=== PATIENT | male | born 1965 | race Caucasian/White ===

== ENCOUNTER 2017-04-02 11:01 | Outpatient (CLI) | payer MEDICAID | END 2017-04-02 11:02 | disposition home or self-care (01) | DX: R06.00 Dyspnea, unspecified (principal); F17.200 Nicotine dependence, unspecified, uncomplicated ==

== ENCOUNTER 2017-08-12 09:39 | Outpatient (CLI) | payer MEDICAID ==
[2017-08-12 13:19] LABS: BASOPHILS % (AUTO) 0.5 %; EOSINOPHILS # (AUTO) 0.2 10^3/uL (0.0-0.7); EOSINOPHILS % (AUTO) 2.4 %; HCT - HEMATOCRIT 39.4 % (42.0-52.0); HGB - HEMOGLOBIN 13.4 g/dL (14.0-18.0); LYMPHOCYTES # (AUTO) 1.7 10^3/uL (1.5-3.5); LYMPHOCYTES % (AUTO) 22.9 %; MEAN CORPUSCULAR HEMOGLOBIN 29.2 pg (27.0-31.0); MEAN CORPUSCULAR HGB CONC 34.1 g/dL (32.0-36.0); MEAN CORPUSCULAR VOLUME 85.7 fL (80.0-94.0); MEAN PLATELET VOLUME 7.1 fL (7.4-11.4); MONOCYTES # (AUTO) 0.5 10^3/uL (0.0-1.0); MONOCYTES % (AUTO) 6.3 %; NEUTROPHILS # (AUTO) 5.1 10^3/uL (1.5-6.6); NEUTROPHILS % (AUTO) 67.9 %; NUCLEATED RED BLOOD CELLS AUTO 0.1 /100WBC; RED CELL DISTRIBUTION WIDTH 13.3 % (12.0-15.0); UNCORRECTED WHITE BLOOD COUNT 7.5 x10^3/uL; WHITE BLOOD COUNT 7.5 x10^3/uL (4.8-10.8)
[2017-08-12 13:27] LABS: ALBUMIN/GLOBULIN RATIO 1.6 (1.0-2.2); BILIRUBIN,TOTAL 0.4 mg/dL (0.2-1.0); BUN - BLOOD UREA NITROGEN 15 mg/dL (6-20); CALCIUM 8.9 mg/dL (8.5-10.3); CARBON DIOXIDE - CO2 27 mmol/L (21-32); CHLORIDE 106 mmol/L (101-111); CHOL/HDL RATIO 3.6 (<5.0); CHOLESTEROL 175 mg/dL; CREATININE 0.8 mg/dL (0.6-1.2); GFR - MDRD 102 (>89); GLUCOSE 96 mg/dL (70-100); HDL CHOLESTEROL 48 mg/dL; POTASSIUM 3.7 mmol/L (3.5-5.0); SODIUM 140 mmol/L (135-145); TOTAL PROTEIN 6.9 g/dL (6.7-8.2); TRIGLYCERIDES 165 mg/dL; VLDL CHOLESTEROL 33 mg/dL
== END 2017-08-12 09:40 | disposition home or self-care (01) ==
LOC: LAB.N 09:39
PROVIDERS: ATTEND Family Medicine
DX: G47.00 Insomnia, unspecified (principal); F17.210 Nicotine dependence, cigarettes, uncomplicated
CPT/HCPCS: 36415; 80053; 80061; 85025

== ENCOUNTER 2017-11-12 14:45 | Outpatient (CLI) | payer MEDICAID ==
[2017-11-12 12:48] LABS: BASOPHILS % (AUTO) 0.8 %; EOSINOPHILS # (AUTO) 0.1 10^3/uL (0.0-0.7); EOSINOPHILS % (AUTO) 1.9 %; HCT - HEMATOCRIT 43.4 % (42.0-52.0); HGB - HEMOGLOBIN 14.6 g/dL (14.0-18.0); LYMPHOCYTES # (AUTO) 1.7 10^3/uL (1.5-3.5); LYMPHOCYTES % (AUTO) 26.3 %; MEAN CORPUSCULAR HEMOGLOBIN 29.8 pg (27.0-31.0); MEAN CORPUSCULAR HGB CONC 33.7 g/dL (32.0-36.0); MEAN CORPUSCULAR VOLUME 88.6 fL (80.0-94.0); MEAN PLATELET VOLUME 7.5 fL (7.4-11.4); MONOCYTES # (AUTO) 0.5 10^3/uL (0.0-1.0); MONOCYTES % (AUTO) 7.9 %; NEUTROPHILS % (AUTO) 63.1 %; RED CELL DISTRIBUTION WIDTH 14.1 % (12.0-15.0); UNCORRECTED WHITE BLOOD COUNT 6.4 x10^3/uL; WHITE BLOOD COUNT 6.4 x10^3/uL (4.8-10.8)
[2017-11-12 13:09] LABS: ALBUMIN/GLOBULIN RATIO 1.4 (1.0-2.2); BILIRUBIN,TOTAL 0.6 mg/dL (0.2-1.0); CALCIUM 9.5 mg/dL (8.5-10.3); CREATININE 0.9 mg/dL (0.6-1.2); TOTAL PROTEIN 7.4 g/dL (6.7-8.2)
== END 2017-11-12 14:46 | disposition home or self-care (01) ==
LOC: LAB.N 14:45
PROVIDERS: ATTEND Family Medicine
DX: F33.0 Major depressive disorder, recurrent, mild (principal); F41.0 Panic disorder [episodic paroxysmal anxiety]
CPT/HCPCS: 36415; 80053; 85025

== ENCOUNTER 2018-01-29 18:51 | Outpatient (CLI) | payer MEDICAID | END 2018-01-29 18:52 | disposition critical access hospital (66) | LOC: EMS 18:51 | PROVIDERS: ATTEND Surgery | DX: R03.0 Elevated blood-pressure reading, without diagnosis of hypertension (principal) | CPT/HCPCS: A0425; A0429 ==

== ENCOUNTER 2018-01-29 19:10 | Emergency (ER) | payer MEDICAID ==
[2018-01-29 19:18] VITALS: BP 128/91
[2018-01-29] MEDS ORDERED: SODIUM CHLORIDE 0.9% 1,000 ML IV ONE (20:07)
--- NOTE | 2018-01-29 20:16 | ED Physician Documentation ---
PD HPI SYNCOPE - Stated complaint Stated Complaint: SYNCOPE - Chief complaint Chief Complaint: Neuro - History obtained from History obtained from: Patient, EMS PD PAST MEDICAL HISTORY - Allergies Allergies/Adverse Reactions: Allergies Allergy/AdvReac Type Severity Reaction Status Date / Time codeine Allergy Unknown Verified 01/29/18 19:18 Results - Vitals Vitals: Vital Signs - 24 hr 01/29/18 19:14 Temperature 37.2 C Heart Rate 106 H Respiratory 22 Rate Blood Pressure 128/91 H O2 Saturation 95 Oxygen O2 Source Room air - EKG (time done) 1918 Rate: Rate (enter#) (94) Rhythm: NSR [place]: Normal QRS: Poor R wave progression Compare to prior EKG: Old EKG unavailable PD MEDICAL DECISION MAKING - ED course Complexity details: reviewed results ED course: Patient's history only obtained from triage notes. ekg was performed but patient stated that he wanted to leave. Patient was awake, alert and oriented. No physical exam was performed, nor was there a detailed history. Patient signed out ama. Departure - Departure Disposition: Against Medical Advice Clinical Impression: Altered mental status Condition: Good
== END 2018-01-29 20:20 | disposition left against medical advice (07) ==
LOC: ED 19:10
DX: R41.82 Altered mental status, unspecified (principal); Z53.20 Procedure and treatment not carried out because of patient's decision for unspecified reasons
CPT/HCPCS: 80053; 80320; 83690; 84484; 85025; 93005; 99282

== ENCOUNTER 2018-03-11 14:40 | Outpatient (CLI) | payer MEDICAID ==
[2018-03-11 19:18] LABS: BASOPHILS % (AUTO) 0.5 %; EOSINOPHILS # (AUTO) 0.1 10^3/uL (0.0-0.7); EOSINOPHILS % (AUTO) 2.3 %; HGB - HEMOGLOBIN 13.1 g/dL (14.0-18.0); LYMPHOCYTES # (AUTO) 1.5 10^3/uL (1.5-3.5); LYMPHOCYTES % (AUTO) 24.1 %; MEAN CORPUSCULAR HEMOGLOBIN 29.3 pg (27.0-31.0); MEAN CORPUSCULAR HGB CONC 33.6 g/dL (32.0-36.0); MEAN CORPUSCULAR VOLUME 87.3 fL (80.0-94.0); MEAN PLATELET VOLUME 6.9 fL (7.4-11.4); MONOCYTES # (AUTO) 0.4 10^3/uL (0.0-1.0); MONOCYTES % (AUTO) 6.8 %; NEUTROPHILS # (AUTO) 4.2 10^3/uL (1.5-6.6); NEUTROPHILS % (AUTO) 66.3 %; PLT - PLATELET COUNT 347 10^3/uL (130-450); RED BLOOD COUNT 4.48 10^6/uL (4.70-6.10); RED CELL DISTRIBUTION WIDTH 13.5 % (12.0-15.0); WHITE BLOOD COUNT 6.3 x10^3/uL (4.8-10.8)
[2018-03-11 19:24] LABS: ALBUMIN 4.1 g/dL (3.2-5.5); ALBUMIN/GLOBULIN RATIO 1.5 (1.0-2.2); ALKALINE PHOSPHATASE 49 IU/L (42-121); ALT ALANINE AMINOTRANSFERASE 22 IU/L (10-60); AST ASPARTATE AMINOTRANSFERASE 20 IU/L (10-42); BILIRUBIN,TOTAL 0.3 mg/dL (0.2-1.0); BUN - BLOOD UREA NITROGEN 12 mg/dL (6-20); CALCIUM 9.1 mg/dL (8.5-10.3); CARBON DIOXIDE - CO2 25 mmol/L (21-32); CHLORIDE 105 mmol/L (101-111); CREATININE 0.8 mg/dL (0.6-1.2); GFR - MDRD 102 (>89); GLUCOSE 93 mg/dL (70-100); SODIUM 137 mmol/L (135-145); TOTAL PROTEIN 6.9 g/dL (6.7-8.2)
== END 2018-03-11 14:41 | disposition home or self-care (01) ==
LOC: LAB.N 14:40
PROVIDERS: ATTEND Family Medicine
DX: R53.83 Other fatigue (principal)
CPT/HCPCS: 36415; 80053; 84443; 85025

== ENCOUNTER 2018-08-01 23:10 | Emergency (ER) | payer MEDICAID ==
--- NOTE | 2018-08-01 23:27 | ED Physician Documentation ---
PD HPI CHEST PAIN - Stated complaint Stated Complaint: CHEST PAIN - Chief complaint Chief Complaint: Cardiac - History obtained from History obtained from: Patient - History of Present Illness Timing - onset: How many weeks ago (has had brief sharp left sided chest pains radiating to left shoulder, onsets after feeling anxious. Feels some dyspnea. Not associated with exertion.) Timing - onset during: Emotional event (after feeling anxious) Timing - duration: Minutes Timing - details: Abrupt onset, Now resolved, Intermittant Quality: Aching, Sharp. No: Pressure, Tightness Location: Left chest Radiation: Left upper extremity Improved by: No: Rest Worsened by: No: Exertion, Inspiration, Eating, Movement, Palpation, Other Associated symptoms: Shortness of air, Feeling faint / dizzy. No: Nausea, Vomiting, General Weakness, Palpitations, Cough Similar symptoms before: Has not had sx before Recently seen: Not recently seen Review of Systems Constitutional: denies: Fever, Chills, Myalgias Nose: denies: Rhinorrhea / runny nose, Congestion Throat: denies: Sore throat Cardiac: reports: Chest pain / pressure. denies: Palpitations, Pedal edema, Calf pain Respiratory: reports: Dyspnea. denies: Cough, Wheezing GI: denies: Abdominal Pain, Nausea, Vomiting, Diarrhea : denies: Dysuria, Frequency Skin: denies: Rash, Lesions, Abrasion (s), Laceration (s) Musculoskeletal: reports: Neck pain. denies: Back pain Neurologic: reports: Generalized weakness. denies: Focal weakness, Numbness, Near syncope PD PAST MEDICAL HISTORY - Past Medical History Past Medical History: Yes Cardiovascular: None Respiratory: None Neuro: None Endocrine/Autoimmune: None Psych: Anxiety, Other Other Past Medical History: schizoeffective disorder - Past Surgical History Past Surgical History: No - Present Medications Home Medications: Ambulatory Orders Medication Instructions Recorded Confirmed Aripiprazole [Abilify] 2 mg PO 08/01/18 Trazodone HCl 100 mg PO DAILY 08/01/18 buPROPion [Wellbutrin Sr] 100 mg PO DAILY 08/01/18 Naproxen [Naprosyn] 500 mg PO BID #20 tablet 08/02/18 - Allergies Allergies/Adverse Reactions: Allergies Allergy/AdvReac Type Severity Reaction Status Date / Time codeine Allergy Unknown Verified 08/01/18 23:18 - Social History Does the pt smoke?: Yes Smoking Status: Current every day smoker Does the pt drink ETOH?: Yes Does the pt have substance abuse?: No Substance Use and Type: Marijuana - POLST Patient has POLST: No PD ED PE NORMAL - Vitals Vital signs reviewed: Yes - General General: Alert and oriented X 3, No acute distress, Well developed/nourished - HEENT HEENT: Pharynx benign - Neck Neck: Supple, no meningeal sign, No adenopathy - Cardiac Cardiac: RRR, No murmur - Respiratory Respiratory: Clear bilaterally, Other (no chestwall tenderness) - Abdomen Abdomen: Normal bowel sounds, Soft, Non tender, Non distended, No organomegaly - Derm Derm: Normal color, Warm and dry, No rash - Extremities Extremities: No deformity, No tenderness to palpate, Normal ROM s pain, No edema , No calf tenderness / cord - Neuro Neuro: Alert and oriented X 3, No motor deficit, Normal speech Results - Vitals Vitals: Vital Signs - 24 hr 08/01/18 08/02/18 23:14 00:41 Temperature 36.1 C L Heart Rate 79 61 Respiratory 18 16 Rate Blood Pressure 140/76 H 130/90 H O2 Saturation 96 97 Oxygen O2 Source Room air - EKG (time done) 23:17 Rate: Rate (enter#) (71) Rhythm: NSR [place]: Normal Intervals: Normal [place] QRS: Normal Ischemia: Normal ST segments. No: ST elevation c/w ischemia, ST depression - Labs Labs: Laboratory Tests 08/01/18 08/01/18 08/01/18 23:58 23:58 23:58 WBC 5.6 RBC 4.48 L Hgb 13.6 L Hct 38.8 L MCV 86.7 MCH 30.4 MCHC 35.1 RDW 13.6 Plt Count 347 MPV 6.5 L Neut # (Auto) 3.1 Lymph # (Auto) 1.9 [place] # (Auto) 0.4 Eos # (Auto) 0.2 Baso # (Auto) 0.0 Absolute Nucleated RBC 0.00 Nucleated RBC % 0.1 Sodium 140 Potassium 3.9 Chloride 108 Carbon Dioxide 24 Anion Gap 8.0 BUN 11 Creatinine 0.9 Estimated GFR (MDRD) 89 Glucose 108 H Calcium 9.1 Total Bilirubin 0.7 AST 24 ALT 25 Alkaline Phosphatase 47 Troponin I < 0.04 B-Natriuretic Peptide Total Protein 6.8 Albumin 3.8 Globulin 3.0 Albumin/Globulin Ratio 1.3 Lipase 34 08/01/18 23:58 WBC RBC Hgb Hct MCV MCH MCHC RDW Plt Count MPV Neut # (Auto) Lymph # (Auto) [place] # (Auto) Eos # (Auto) Baso # (Auto) Absolute Nucleated RBC Nucleated RBC % Sodium Potassium Chloride Carbon Dioxide Anion Gap BUN Creatinine Estimated GFR (MDRD) Glucose Calcium Total Bilirubin AST ALT Alkaline Phosphatase Troponin I B-Natriuretic Peptide 26 Total Protein Albumin Globulin Albumin/Globulin Ratio Lipase - Rads (name of study) chest xray Radiology: Prelim report reviewed (normal) PD MEDICAL DECISION MAKING - ED course Complexity details: reviewed results (no signs of obvious lung/heart problems. ) , considered differential (fleeting sharp left sided chest pains, not exertional. Does not sound like ACS. ), d/w patient - Sepsis Event Vital Signs: Vital Signs - 24 hr 08/01/18 08/02/18 23:14 00:41 Temperature 36.1 C L Heart Rate 79 61 Respiratory 18 16 Rate Blood Pressure 140/76 H 130/90 H O2 Saturation 96 97 Oxygen O2 Source Room air Departure - Departure Disposition: Home, Self Care Clinical Impression: Intermittent left-sided chest pain Condition: Stable Record reviewed to determine appropriate education?: Yes Instructions: ED Chest Pain Atypical Unkn Cause Follow-Up: Daphne Li ARNP [Primary Care Provider] - Prescriptions: Naproxen [Naprosyn] 500 mg PO BID #20 tablet Comments: Your EKG, chest x-ray, blood tests are normal. No signs of obvious heart or lung problems at this time. Particularly no signs of heart attack or heart failure. Following up with the building engineer as planned is still appropriate as they may want to do a stress test or ultrasound of your heart to fully exclude heart causes. At this point I presume more musculoskeletal pains related to the anxiety episodes and have you take some naproxen twice daily for the next 7- 10 days. Recheck if other symptoms develop or worsening episodes. Discharge Date/Time: 08/02/18 00:47
[2018-08-01] MEDS ORDERED: ASPIRIN CHEW 81 MG TABLET PO STA (23:40)
[2018-08-01] MEDS ORDERED: KETOROLAC 60 MG/2 ML VIAL IVP STA (23:40)
[2018-08-02 00:09] LABS: BASOPHILS % (AUTO) 0.7 %; EOSINOPHILS # (AUTO) 0.2 10^3/uL (0.0-0.7); HGB - HEMOGLOBIN 13.6 g/dL (14.0-18.0); LYMPHOCYTES # (AUTO) 1.9 10^3/uL (1.5-3.5); LYMPHOCYTES % (AUTO) 33.9 %; MEAN CORPUSCULAR HEMOGLOBIN 30.4 pg (27.0-31.0); MEAN CORPUSCULAR HGB CONC 35.1 g/dL (32.0-36.0); MEAN CORPUSCULAR VOLUME 86.7 fL (80.0-94.0); MEAN PLATELET VOLUME 6.5 fL (7.4-11.4); MONOCYTES # (AUTO) 0.4 10^3/uL (0.0-1.0); MONOCYTES % (AUTO) 6.8 %; NEUTROPHILS # (AUTO) 3.1 10^3/uL (1.5-6.6); NEUTROPHILS % (AUTO) 55.6 %; PLT - PLATELET COUNT 347 10^3/uL (130-450); RED BLOOD COUNT 4.48 10^6/uL (4.70-6.10); RED CELL DISTRIBUTION WIDTH 13.6 % (12.0-15.0); WHITE BLOOD COUNT 5.6 x10^3/uL (4.8-10.8)
--- NOTE | 2018-08-02 00:15 | XRAY Report ---
Reason: chest pain left sided Procedure Date: 08/02/2018 Accession Number: [id number] / [id number] Procedure: XR - Chest 2 View X-Ray CPT Code: 38359 FULL RESULT: EXAM: CHEST RADIOGRAPHY EXAM DATE: 08/02/2018 12:09 AM. CLINICAL HISTORY: Chest pain, left-sided. COMPARISON: CHEST 2 VIEW PA/LAT 04/02/2017 11:16 AM. TECHNIQUE: 2 views. FINDINGS: Lungs/Pleura: No focal opacities evident. No pleural effusion. No pneumothorax. Normal volumes. Mediastinum: Heart and mediastinal contours are unremarkable. Other: None. IMPRESSION: No acute cardiopulmonary process. RADIA
[2018-08-02 00:20] LABS: ALBUMIN 3.8 g/dL (3.2-5.5); ALBUMIN/GLOBULIN RATIO 1.3 (1.0-2.2); BILIRUBIN,TOTAL 0.7 mg/dL (0.2-1.0); CALCIUM 9.1 mg/dL (8.5-10.3); CREATININE 0.9 mg/dL (0.6-1.2); TOTAL PROTEIN 6.8 g/dL (6.7-8.2)
[2018-08-02 00:47] VITALS: BP 130/90
== END 2018-08-02 00:47 | disposition home or self-care (01) ==
LOC: ED 23:10
DX: R07.89 Other chest pain (principal); F17.200 Nicotine dependence, unspecified, uncomplicated
CPT/HCPCS: 36415; 71046; 80053; 83690; 83880; 84484; 85025; 93005; 96374; 99283; 99284; A9270

== ENCOUNTER 2018-08-31 23:56 | Emergency (ER) | payer MEDICAID ==
[2018-09-01] MEDS ORDERED: LIDOCAINE 1%-EPI 1:100000 30 ML MDV SUBQ STA (00:12)
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
[2018-09-01 01:08] VITALS: BP 130/86
== END 2018-09-01 01:07 | disposition home or self-care (01) ==
LOC: ED 23:56
DX: S01.01XA Laceration without foreign body of scalp, initial encounter (principal); Y04.2XXA Assault by strike against or bumped into by another person, initial encounter; Y92.009 Unspecified place in unspecified non-institutional (private) residence as the place of occurrence of the external cause; F17.200 Nicotine dependence, unspecified, uncomplicated
CPT/HCPCS: 12011; 99283

== ENCOUNTER 2018-11-07 11:31 | Outpatient (CLI) | payer MEDICAID | END 2018-11-07 11:32 | disposition EMS.NT | LOC: EMS 11:31 | PROVIDERS: ATTEND Surgery | DX: R42 Dizziness and giddiness (principal); R61 Generalized hyperhidrosis ==

== ENCOUNTER 2019-01-01 12:20 | Emergency (ER) | payer MEDICAID ==
[2019-01-01] MEDS ORDERED: ALBUTEROL NEB 2.5 MG/3 ML INH STA (13:00)
[2019-01-01] MEDS ORDERED: IPRATROPIUM 0.2 MG/ML NEB INH STA (13:01)
[2019-01-01] MEDS ORDERED: NAPROXEN 250 MG TABLET PO STA (13:01)
[2019-01-01] MEDS ORDERED: DEXAMETHASONE 10 MG/ML VIAL PO STA (13:01)
[2019-01-01] MEDS ORDERED: CHERRY SYRUP 10 ML UDC PO ONE (13:13)
--- NOTE | 2019-01-01 13:35 | ED Physician Documentation ---
PD HPI URI - Stated complaint Stated Complaint: COUGH - Chief complaint Chief Complaint: Resp - History obtained from History obtained from: Patient - History of Present Illness Timing - onset: How many days ago (3) Timing details: Gradual onset Severity Comments: moderate Associated symptoms: Fever, Chills, Sweats, Nasal congestion, Dry cough. No: Swollen nodes, Hemoptysis, Chest pain Contributing factors: No: Sick contact, Travel, Immunocompromised Improves by: Rest Worsened by: No: Activity, Breathing, Position Similar symptoms before: No diagnosis Recently seen: Not recently seen Review of Systems Constitutional: reports: Fever, Chills, Myalgias, Fatigue Eyes: denies: Discharge Ears: denies: Ear pain Nose: reports: Rhinorrhea / runny nose, Congestion Throat: denies: Sore throat Cardiac: denies: Chest pain / pressure Respiratory: reports: Cough GI: denies: Abdominal Pain : denies: Dysuria Skin: denies: Rash Musculoskeletal: denies: Neck pain Neurologic: denies: Generalized weakness PD PAST MEDICAL HISTORY - Past Medical History Past Medical History: Yes Cardiovascular: Hypertension Respiratory: None Neuro: None Endocrine/Autoimmune: None Psych: Anxiety, Other - Past Surgical History Past Surgical History: No - Present Medications Home Medications: Ambulatory Orders Medication Instructions Recorded Confirmed Trazodone HCl 100 mg PO DAILY 08/01/18 buPROPion [Wellbutrin Sr] 100 mg PO DAILY 08/01/18 Naproxen [Naprosyn] 500 mg PO BID #20 tablet 08/02/18 Bp Medication 01/01/19 Doxycycline Hyclate 100 mg PO BID #20 capsule 01/01/19 - Allergies Allergies/Adverse Reactions: Allergies Allergy/AdvReac Type Severity Reaction Status Date / Time codeine Allergy Unknown Verified 01/01/19 12:27 - Social History Does the pt smoke?: Yes Smoking Status: Current every day smoker Does the pt drink ETOH?: Yes Does the pt have substance abuse?: No - Immunizations Immunizations are current?: Yes - POLST Patient has POLST: No PD ED PE NORMAL - General General: Alert and oriented X 3, No acute distress - HEENT HEENT: Atraumatic, PERRL, EOMI, Ears normal - Neck Neck: Supple, no meningeal sign - Cardiac Cardiac: RRR, Strong equal pulses - Respiratory Respiratory: No respiratory distress, Other (Bilateral wheezing) - Derm Derm: Normal color - Extremities Extremities: No deformity - Neuro Neuro: Alert and oriented X 3, Normal speech - Psych Psych: Normal affect Results - Vitals Vitals: Vital Signs - 24 hr 01/01/19 01/01/19 12:23 13:21 Temperature 36 C L Heart Rate 99 95 Respiratory 18 18 Rate Blood Pressure 130/78 O2 Saturation 97 Oxygen O2 Source Room air - EKG (time done) 13:47 Rate: Rate (enter#) Rhythm: NSR [place]: Normal Intervals: Normal [place] QRS: Normal Ischemia: Normal ST segments - Labs Labs: Laboratory Tests 01/01/19 12:31 Influenza A (Rapid) Negative Influenza B (Rapid) Negative - Rads (name of study) CXR Radiology: Final report received, See rad report PD MEDICAL DECISION MAKING - ED course ED course: The patient appears to have an acute pneumonia, presently the patient appears appropriate for discharge and ongoing outpatient management with oral antibiotics. The patient has an inhaler at home. I advised smoking cessation. I discussed warning signs and recommended returning to the emergency department immediately for any worsening or any concerns Departure - Departure Disposition: 01 Home, Self Care Clinical Impression: Pneumonia Qualifiers: Pneumonia type: due to unspecified organism Laterality: unspecified laterality Lung location: unspecified part of lung Qualified Code(s): J18.9 - Pneumonia, unspecified organism Condition: Good Instructions: Pneumonia Dc Follow-Up: Elvi Maher ARNP [Primary Care Provider] - Within 1 week (Please ask your primary care to repeat a chest x-ray once her symptoms improve to make sure that the infiltrate has resolved) Prescriptions: Doxycycline Hyclate 100 mg PO BID #20 capsule Comments: Please return to the ED for worsening symptoms or any concerns
--- NOTE | 2019-01-01 14:18 | XRAY Report ---
Reason: cough Procedure Date: 01/01/2019 Accession Number: [id number] / [id number] Procedure: XR - Chest 2 View X-Ray CPT Code: 28549 FULL RESULT: EXAM: CHEST RADIOGRAPHY EXAM DATE: 01/01/2019 02:09 PM. CLINICAL HISTORY: Cough. COMPARISON: CHEST 2 VIEW 08/01/2018 11:55 PM. TECHNIQUE: 2 views. FINDINGS: Lungs/Pleura: There is a new small focal airspace opacity at the lateral right lung base. Lungs otherwise unchanged. Lung volumes are normal. Negative for pleural effusion or pneumothorax. Mediastinum: Heart and mediastinal contours are unremarkable. Other: None. IMPRESSION: New small airspace disease lateral right base, suspicious for pneumonia RADIA
[2019-01-01] MEDS ORDERED: DOXYCYCLINE 100 MG TABLET PO STA (14:32)
[2019-01-01 14:56] VITALS: BP 132/84
== END 2019-01-01 14:55 | disposition home or self-care (01) ==
LOC: ED 12:20
DX: J18.9 Pneumonia, unspecified organism (principal); I10 Essential (primary) hypertension; F17.200 Nicotine dependence, unspecified, uncomplicated
CPT/HCPCS: 71046; 87275; 87276; 93005; 94640; 99283; A9270

== ENCOUNTER 2019-06-18 09:34 | Outpatient (CLI) | payer MEDICAID ==
--- NOTE | 2019-06-18 10:26 | XRAY Report ---
Reason: L SHOULDER JOINT PAIN Procedure Date: 06/18/2019 Accession Number: [id number] / [id number] Procedure: XRN - Shoulder 3 View LT CPT Code: FULL RESULT: EXAM: LEFT SHOULDER RADIOGRAPHY EXAM DATE: 06/18/2019 09:54 AM. CLINICAL HISTORY: Left shoulder joint pain. COMPARISON: CHEST 2 VIEW 01/01/2019 1:31 PM. TECHNIQUE: 3 views. FINDINGS: Bones: Normal. No fracture or bone lesion. Joints: The glenohumeral and acromioclavicular joints are normally located with moderate degenerative changes of the acromioclavicular joint, similar to January. Soft tissues: The visualized hemithorax is unremarkable. No soft tissue swelling. IMPRESSION: Acromioclavicular joint predominant degenerative changes. RADIA
== END 2019-06-18 09:35 | disposition home or self-care (01) ==
LOC: DI.N 09:34
PROVIDERS: ATTEND Family Medicine
DX: M19.012 Primary osteoarthritis, left shoulder (principal)

== ENCOUNTER 2019-06-24 14:29 | Outpatient (CLI) | payer MEDICAID ==
--- NOTE | 2019-06-25 10:15 | XRAY Report ---
Reason: hammer toe acquired Procedure Date: 06/24/2019 Accession Number: [id number] / [id number] Procedure: XRN - Foot 3 View LT CPT Code: FULL RESULT: EXAM: LEFT FOOT RADIOGRAPHY EXAM DATE: 06/24/2019 02:48 PM HISTORY: hammer toe acquired COMPARISON: None. TECHNIQUE: AP, lateral and oblique, 3 views . FINDINGS: Flexion position at the second toe interphalangeal joint noted without additional bony irregularity of the second toe. No focal bone lesion identified. There is mild bunion formation. Moderate bunionette formation noted. Otherwise unremarkable MCP joint. Unremarkable midfoot articulations. Os peroneum noted. Mild enthesopathic spurring seen at the Achilles insertion. Mild calcification noted at the origin of the plantar aponeurosis. IMPRESSION: Second toe hammertoe formation. Bunion and bunionette formation. Enthesopathy at the calcaneus as noted. Otherwise essentially unremarkable. RADIA
== END 2019-06-24 14:30 | disposition home or self-care (01) ==
LOC: DI.N 14:29
PROVIDERS: ATTEND Family Medicine
DX: M20.42 Other hammer toe(s) (acquired), left foot (principal); M21.612 Bunion of left foot; M77.9 Enthesopathy, unspecified

== ENCOUNTER 2019-07-02 14:31 | Emergency (ER) | payer MEDICAID ==
--- NOTE | 2019-07-02 16:26 | ED Physician Documentation ---
PD HPI UPPER EXT INJURY - Stated complaint Stated Complaint: L ARM PX - Chief complaint Chief Complaint: Ext Problem - History obtained from History obtained from: Patient - History of Present Illness Location: Left, Shoulder Type of injury: Twist (he does lifting and ROM a lot at work. Has had pain develop and worsen through work day and better rested. Has been progressively worse over month or more. Seen by PCP and had xray of the shoulder. Rx with NSAIDs. Not improved according to the patient.). No: Fall, Blunt / blow Where injury occurred: Work Timing - onset: How many months ago (a month or more) Timing - duration: Months Timing - details: Gradual onset, Still present, Waxing and waning (worse during work day) Worsened by: Moving (mostly reaching up and abduction, but now also with extension and rotation.). No: Palpating Associated symptoms: No: Weakness, Numbness, Swelling Contributing factors: No: Prior ortho surgery Similar symptoms before: Has not had sx before Recently seen: Clinic (by PCP and had xray done. Rx with NSAIDs. Worsening, per patient.) Review of Systems Constitutional: denies: Fever, Chills Nose: denies: Rhinorrhea / runny nose, Congestion Throat: denies: Sore throat Respiratory: denies: Cough Skin: denies: Rash, Lesions Neurologic: reports: Focal weakness (shoulder hurts with lifting and reaching, and feels weaker for those movements.). denies: Generalized weakness, Numbness PD PAST MEDICAL HISTORY - Past Medical History Cardiovascular: Hypertension Respiratory: None Neuro: None Endocrine/Autoimmune: None Psych: Anxiety, Other - Past Surgical History Past Surgical History: No - Present Medications Home Medications: Ambulatory Orders Medication Instructions Recorded Confirmed Trazodone HCl 100 mg PO DAILY 08/01/18 buPROPion [Wellbutrin Sr] 100 mg PO DAILY 08/01/18 Naproxen [Naprosyn] 500 mg PO BID #20 tablet 08/02/18 Bp Medication 01/01/19 Doxycycline Hyclate 100 mg PO BID #20 capsule 01/01/19 Hydrocodone/Acetaminophen [[place] 1 each PO Q6H PRN #15 tablet 07/02/19 5-325 Tablet] Methocarbamol [Robaxin] 500 mg PO Q6H PRN #30 tablet 07/02/19 Naproxen 375 mg PO BID #20 tablet 07/02/19 dexAMETHasone [Decadron] 4 mg PO DAILY #5 tablet 07/02/19 - Allergies Allergies/Adverse Reactions: Allergies Allergy/AdvReac Type Severity Reaction Status Date / Time codeine Allergy Unknown Verified 07/02/19 14:42 - Social History Does the pt smoke?: Yes Smoking Status: Current every day smoker Does the pt drink ETOH?: Yes Does the pt have substance abuse?: No - Immunizations Immunizations are current?: Yes - POLST Patient has POLST: No PD ED PE NORMAL - Vitals Vital signs reviewed: Yes - General General: Alert and oriented X 3, No acute distress, Well developed/nourished - Derm Derm: Normal color, Warm and dry, No rash - Extremities Extremities: Other (left shoulder with tenderness posteriorly mostly, but some over lateral aspect. Not tender particularly at AC nor clavicle. No effusion noted. Pain worse with abduction, extension, internal rotation, and reaching behind him. Seems c/w rotator cuff process. ) - Neuro Neuro: Alert and oriented X 3, No motor deficit, No sensory deficit, Normal speech Results - Vitals Vitals: Vital Signs - 24 hr 07/02/19 17:16 Temperature 36.6 C Heart Rate 90 Respiratory 16 Rate Blood Pressure 130/84 H O2 Saturation 96 Oxygen O2 Source Room air PD MEDICAL DECISION MAKING - ED course Complexity details: reviewed old records (prior xray), considered differential (sounds like tendonitis without abrupt injury; does lifting and ROM a lot at work. Unlikely a tear; can use sling sparingly and cautioned him about ROM frequently through the day, but limited rotator use (work note given). ), d/w patient Departure - Departure Disposition: 01 Home, Self Care Clinical Impression: Left shoulder tendonitis Condition: Stable Record reviewed to determine appropriate education?: Yes Instructions: Rotator Cuff Injury Follow-Up: JAZMYN MARTÍNEZ MD [Primary Care Provider] - Christopher Patel MD [Provider Admit Priv/Credential] - Prescriptions: dexAMETHasone [Decadron] 4 mg PO DAILY #5 tablet Hydrocodone/Acetaminophen [[place] 5-325 Tablet] 1 each PO Q6H PRN #15 tablet PRN Reason: Pain Methocarbamol [Robaxin] 500 mg PO Q6H PRN #30 tablet PRN Reason: Spasms Naproxen 375 mg PO BID #20 tablet Comments: You do have some arthritis at the shoulder AC joint. However your symptoms are more suggestive of rotator cuff tendinitis. Gentle range of motion. No overhead reaching push pull or heavy lifting. Sling for the shoulder periodically to reduce irritation in the joint but have gentle range of motion several times a day so does not stiffen up. Naproxen NSAID for inflammation. Add Decadron steroid anti-inflammatory as well for 5 days. Add Robaxin muscle relaxant for spasms and stiffness. To this I will add Tylenol or hydrocodone as needed. Work note for no heavy lifting, push pole, overhead reaching for a week. Follow-up with your primary care as planned next week. He may also benefit from following up with orthopedics and I gave their number to call for an appointment. Forms: Activity restrictions Discharge Date/Time: 07/02/19 17:16
[2019-07-02] MEDS ORDERED: DEXAMETHASONE 10 MG/ML VIAL PO STA (16:51)
[2019-07-02] MEDS ORDERED: NAPROXEN 250 MG TABLET PO STA (16:51)
[2019-07-02] MEDS ORDERED: CHERRY SYRUP 10 ML UDC PO ONE (16:51)
[2019-07-02] MEDS ORDERED: HYDROcod/ACETAM 5/325 MG TABLET PO STA (16:51)
[2019-07-02] MEDS ORDERED: METHOCARBAMOL 500 MG TABLET PO STA (16:52)
[2019-07-02 17:18] VITALS: BP 130/84
== END 2019-07-02 17:16 | disposition home or self-care (01) ==
LOC: ED 14:31
DX: M75.92 Shoulder lesion, unspecified, left shoulder (principal); M19.019 Primary osteoarthritis, unspecified shoulder; I10 Essential (primary) hypertension; F17.200 Nicotine dependence, unspecified, uncomplicated
CPT/HCPCS: 99283; A9270

== ENCOUNTER 2019-07-07 18:05 | Emergency (ER) | payer MEDICAID ==
[2019-07-07 18:18] VITALS: BP 139/92
== END 2019-07-07 19:20 | disposition left against medical advice (07) ==
LOC: ED 18:05
DX: Z53.21 Procedure and treatment not carried out due to patient leaving prior to being seen by health care provider (principal)

== ENCOUNTER 2019-08-17 14:29 | Outpatient (CLI) | payer MEDICAID ==
--- NOTE | 2019-08-18 15:56 | XRAY Report ---
Reason: LUMBAR RADICOLAPTHY Procedure Date: 08/17/2019 Accession Number: [id number] / [id number] Procedure: XRN - Lumbar Spine Complete CPT Code: FULL RESULT: EXAM: LUMBOSACRAL SPINE RADIOGRAPHY EXAM DATE: 08/17/2019 02:52 PM. CLINICAL HISTORY: LUMBAR RADICULOPATHY. COMPARISONS: None. TECHNIQUE: 5 views. FINDINGS: Alignment: Normal. No spondylolisthesis or scoliosis. Bones: Five unf-oio-uedtdyi lumbar vertebral bodies are present. No fractures or bone lesions. Disks: Osteophyte at L1-L2, L2-L3, L3-L4, L4-L5, L5-S1. Disk space narrowing L2-L3, L3-L4. Facets: L5-S1 facet arthropathy Sacroiliac Joints: Unremarkable. Soft Tissues: Normal. The visualized bowel gas pattern is normal. IMPRESSION: Mild to moderate DJD RADIA
== END 2019-08-17 14:30 | disposition home or self-care (01) ==
LOC: DI.N 14:29
PROVIDERS: ATTEND Family Medicine
DX: M47.816 Spondylosis without myelopathy or radiculopathy, lumbar region (principal); M47.817 Spondylosis without myelopathy or radiculopathy, lumbosacral region
CPT/HCPCS: 72110

== ENCOUNTER 2019-09-14 00:31 | Outpatient (CLI) | payer MEDICAID | END 2019-09-14 00:32 | disposition critical access hospital (66) | LOC: EMS 00:31 | PROVIDERS: ATTEND Surgery | DX: R10.9 Unspecified abdominal pain (principal) | CPT/HCPCS: A0425; A0427; A0999 ==

== ENCOUNTER 2019-09-14 00:44 | Inpatient (IN) | payer MEDICAID ==
[2019-09-14] MEDS ORDERED: HYDROmorphone 1 MG/ML CARPUJECT IVP STA ×4 (00:53→02:59)
[2019-09-14] MEDS ORDERED: ONDANSETRON 4 MG/2 ML VIAL IVP STA (00:53)
[2019-09-14] MEDS ORDERED: SODIUM CHLORIDE 0.9% 1,000 ML IV ONE ×4 (00:53→02:45)
[2019-09-14] MEDS ORDERED: LIDOCAINE VISCOUS 2% 15 ML UDC MM STA (00:53)
[2019-09-14 01:05] LABS: BASOPHILS # (AUTO) 0.1 10^3/uL (0.0-0.1); BASOPHILS % (AUTO) 0.5 %; EOSINOPHILS # (AUTO) 0.3 10^3/uL (0.0-0.7); EOSINOPHILS % (AUTO) 1.9 %; HGB - HEMOGLOBIN 16.4 g/dL (14.0-18.0); LYMPHOCYTES # (AUTO) 3.2 10^3/uL (1.5-3.5); LYMPHOCYTES % (AUTO) 22.3 %; MEAN CORPUSCULAR HEMOGLOBIN 29.8 pg (27.0-31.0); MEAN CORPUSCULAR HGB CONC 32.5 g/dL (32.0-36.0); MEAN CORPUSCULAR VOLUME 91.7 fL (80.0-94.0); MEAN PLATELET VOLUME 9.2 fL (7.4-11.4); MONOCYTES # (AUTO) 0.5 10^3/uL (0.0-1.0); MONOCYTES % (AUTO) 3.6 %; NEUTROPHILS # (AUTO) 10.4 10^3/uL (1.5-6.6); NEUTROPHILS % (AUTO) 71.2 %; PLT - PLATELET COUNT 393 10^3/uL (130-450); RED BLOOD COUNT 5.51 10^6/uL (4.70-6.10); RED CELL DISTRIBUTION WIDTH 13.6 % (12.0-15.0); WHITE BLOOD COUNT 14.6 x10^3/uL (4.8-10.8)
[2019-09-14] MEDS ORDERED: IOVERSOL 320 100 ML VIAL IVP ONE ×2 (01:10→01:44)
[2019-09-14] MEDS ORDERED: LORazepam 2 MG/ML VIAL IVP STA ×2 (01:19→02:59)
[2019-09-14] MEDS ORDERED: PIPERACILLIN/TAZOBACTAM 3.375 GM in SODIUM CHLORIDE 0.9% MINIBAG 100 ML IV STA (01:49)
--- NOTE | 2019-09-14 01:53 | ED Physician Documentation ---
PD HPI ABD PAIN - Stated complaint Stated Complaint: HEARTBURN/ GI - History obtained from History obtained from: Patient - History of Present Illness Timing - onset: How many hours ago (2), Today Timing - duration: Hours (2) Timing - details: Abrupt onset, Still present (Shortly after dinner he had a feeling of abdominal fullness and feeling of needing to belch. He started with some diffuse crampy abdominal pain which worsened fairly promptly over just a several minutes to an hour half hour. He continued to have worsening abdominal pain and feeling of needing to vomit. He took some sodium bicarb to help but no improvement. He had been feeling well otherwise earlier in the day. Remote history of gastritis and ulcer in the past but no current symptoms. He does not take any NSAIDs.) Quality: Cramping, Aching, Fullness/distended Location: All over / everywhere Radiation: Upper back. No: Chest Improved by: No: Vomiting (He had veal feeling of needing to vomit but had not had an emesis prior to arrival.) Worsened by: Eating Associated symptoms: Nausea, Other (has umbilical hernia but has not been hurting.). No: Fever, Vomiting, Diarrhea, Constipation Similar symptoms before: Has not had sx before Recently seen: Not recently seen Review of Systems Constitutional: denies: Fever, Chills Nose: denies: Rhinorrhea / runny nose, Congestion Throat: denies: Sore throat Respiratory: denies: Cough GI: reports: Abdominal Pain (just this evening; no recent food intolerance.), Abdominal Swelling, Nausea. denies: Constipation, Diarrhea, Bloody / black stool : denies: Dysuria, Frequency Neurologic: reports: Generalized weakness. denies: Focal weakness, Numbness, Near syncope PD PAST MEDICAL HISTORY - Past Medical History Cardiovascular: Hypertension Respiratory: None Neuro: None Endocrine/Autoimmune: None GI: Other (gastritis in the past) Psych: Depression, Anxiety, Other Musculoskeletal: None - Past Surgical History Past Surgical History: No - Present Medications Home Medications: Ambulatory Orders Medication Instructions Recorded Confirmed Trazodone HCl 100 mg PO DAILY 08/01/18 Hydrocodone/Acetaminophen [Farrell 1 each PO Q6H PRN #15 tablet 07/02/19 5-325 Tablet] Methocarbamol [Robaxin] 500 mg PO Q6H PRN #30 tablet 07/02/19 Naproxen 375 mg PO BID #20 tablet 07/02/19 ARIPiprazole [Abilify] 5 mg PO DAILY 09/14/19 09/14/19 Losartan Potassium 25 mg PO DAILY 09/14/19 09/14/19 - Allergies Allergies/Adverse Reactions: Allergies Allergy/AdvReac Type Severity Reaction Status Date / Time codeine Allergy Unknown Verified 07/07/19 18:18 - Living Situation Living Situation: reports: With spouse/s.o. Living Arrangement: reports: At home - Social History Does the pt smoke?: Yes Smoking Status: Current every day smoker Does the pt drink ETOH?: Yes Does the pt have substance abuse?: No - Immunizations Immunizations are current?: Yes - POLST Patient has POLST: No PD ED PE NORMAL - Vitals Vital signs reviewed: Yes - General General: Alert and oriented X 3, Well developed/nourished, Other (He is in significant distress with severe abdominal pain. He is very sweaty and diaphoretic and pale.) - HEENT HEENT: Pharynx benign - Neck Neck: Supple, no meningeal sign, No adenopathy - Cardiac Cardiac: No murmur. No: RRR (Tachycardic but regular) - Respiratory Respiratory: Clear bilaterally - Abdomen Abdomen: No organomegaly, Other (His abdomen is generally distended. There is a umbilical hernia felt with some tenderness but does not feel hard or incarcerated. Bowel sounds are present generally and hyperactive. There is general tenderness to percussion diffusely and also to palpation. There is no CVA tenderness.). No: Normal bowel sounds - Male Male : Deferred - Rectal Rectal: Deferred - Back Back: No CVA TTP - Derm Derm: No: Normal color, Warm and dry (Pale and sweaty) - Extremities Extremities: Normal ROM s pain, No edema - Neuro Neuro: Alert and oriented X 3, No motor deficit, Normal speech Eye Opening: Spontaneous Motor: Obeys Commands Verbal: Oriented GCS Score: 15 - Psych Psych: No: Normal affect (very anxious and in pain) Results - Vitals Vitals: Vital Signs - 24 hr 09/14/19 09/14/19 09/14/19 01:00 01:57 02:32 Heart Rate 150 H 144 H 144 H Respiratory 30 H 40 H 30 H Rate Blood Pressure 160/112 H 132/94 H 135/102 H O2 Saturation 98 95 Oxygen O2 Source Nasal cannula - Labs Labs: Laboratory Tests 09/14/19 09/14/19 09/14/19 00:54 01:45 02:03 WBC 14.6 H RBC 5.51 Hgb 16.4 Hct 50.5 MCV 91.7 MCH 29.8 MCHC 32.5 RDW 13.6 Plt Count 393 MPV 9.2 Neut # (Auto) 10.4 H Lymph # (Auto) 3.2 [place] # (Auto) 0.5 Eos # (Auto) 0.3 Baso # (Auto) 0.1 Absolute Nucleated RBC 0.00 Nucleated RBC % 0.0 Sodium 141 Potassium 3.2 L Chloride 97 L Carbon Dioxide 28 Anion Gap 16.0 H BUN 17 Creatinine 1.6 H Estimated GFR (MDRD) 46 L Glucose 230 H Lactic Acid Calcium 8.7 Magnesium 1.9 Total Bilirubin 0.7 AST 28 ALT 19 Alkaline Phosphatase 64 Troponin I High Sens Total Protein 6.9 Albumin 4.0 Globulin 2.9 Albumin/Globulin Ratio 1.4 Lipase 32 Blood Type AB POSITIVE Blood Type Recheck Antibody Screen NEGATIVE Crossmatch IS Only See Detail 09/14/19 09/14/19 09/14/19 02:03 02:05 02:05 WBC RBC Hgb Hct MCV MCH MCHC RDW Plt Count MPV Neut # (Auto) Lymph # (Auto) [place] # (Auto) Eos # (Auto) Baso # (Auto) Absolute Nucleated RBC Nucleated RBC % Sodium Potassium Chloride Carbon Dioxide Anion Gap BUN Creatinine Estimated GFR (MDRD) Glucose Lactic Acid 3.9 H* Calcium Magnesium Total Bilirubin AST ALT Alkaline Phosphatase Troponin I High Sens 11.2 Total Protein Albumin Globulin Albumin/Globulin Ratio Lipase Blood Type Blood Type Recheck AB POSITIVE Antibody Screen Crossmatch IS Only - Rads (name of study) abd CT Radiology: Prelim report reviewed, Discussed with rads (Free air and free fluid with an apparent gastric perforation at the lesser curvature.), See rad report Procedures - General procedure General procedure: Nasogastric tube placed via the left Patel using lidocaine gel without any complications in upright postion. He did have gastric contents returned along with some clear fluids. It did help with some of his feeling of upper abdominal discomfort. He did have emesis of mainly clear fluid prior to the NG tube placement but did not seem to have any respiratory distress. He was in a sitting up position when he vomited prior to the procedure. PD MEDICAL DECISION MAKING - ED course Complexity details: reviewed results (Free air and fluid is demonstrated on the CT scan. Radiology report pending.), re-evaluated patient, considered differential (Considerations of obstruction versus perforation versus vascular process. Immediate goals are pain reduction in vital stabilization IV fluids and medications and then prompt CT scan.), d/w patient, d/w market consultant (Consult with Dr. Palmer immediately after CT done with my visualization of free air and free fluid. The patient was obviously having an acute abdomen on initial presentation. The CT help delineate if it was imminently surgical versus obstruction. Dr. Palmer would come to the ER to evaluate the patient. Subseq uently on arrival and examining the patient he also asked the hospitalist be consulted which I did.) - Critical Care Time(min): 45 Time Includes: Direct patient care, Reassess patient, Medical consult, See progress note Data interpretation: Labs, Pulse ox, CXR Procedures included in critical care time: Gastric intubation Departure - Departure Disposition: 66 [facility] DC/Xfer Clinical Impression: Acute abdominal pain, Perforated stomach, Surgical abdomen Condition: Serious Record reviewed to determine appropriate education?: Yes
[2019-09-14] MEDS ORDERED: FAMOTIDINE 20 MG/2 ML VIAL IVP STA (02:00)
[2019-09-14 02:06] LABS: ALBUMIN/GLOBULIN RATIO 1.4 (1.0-2.2); BILIRUBIN,TOTAL 0.7 mg/dL (0.2-1.0); CALCIUM 8.7 mg/dL (8.5-10.3); CREATININE 1.6 mg/dL (0.6-1.2); MAGNESIUM 1.9 mg/dL (1.7-2.8); TOTAL PROTEIN 6.9 g/dL (6.7-8.2)
--- NOTE | 2019-09-14 02:16 | CT Report ---
Reason: abd distension and severe pain Procedure Date: 09/14/2019 Accession Number: [id number] / [id number] Procedure: CT - Abdomen/Pelvis W CPT Code: FULL RESULT: EXAM: CT ABDOMEN AND PELVIS EXAM DATE: 09/14/2019 01:40 AM CLINICAL HISTORY: Abdominal distention and severe abdominal pain. COMPARISONS: None. TECHNIQUE: Routine helical CT imaging was performed through the abdomen and pelvis. IV contrast: 100 mL Optiray 320. Enteric contrast: No. Reconstructions: Coronal and sagittal. In accordance with CT protocol optimization, one or more of the following dose reduction techniques were utilized for this exam: automated exposure control, adjustment of mA and/or KV based on patient size, or use of iterative reconstructive technique. FINDINGS: ABDOMEN: Liver: No significant abnormality. Stomach/Distal Esophagus: Nonspecific stranding noted around the stomach, particularly the lower two-thirds. There is also a small amount of gas adjacent to the lesser curvature of the stomach. Mucosal defect and gastric wall defect is seen along the lesser curvature (image 26 series 3). Medium sized hiatal hernia. Moderate amount of gas along the paraesophageal hernia. Gallbladder: No significant abnormality. Bile Ducts: No significant abnormality. Pancreas: No significant abnormality. Spleen: No significant abnormality. Kidneys: A few scattered small subcentimeter low-density foci are present, too small to accurately characterize at this time. No suspicious solid appearing lesion. Suspect tiny stones within the lower pole of the right kidney. Nonspecific bilateral perinephric stranding and edema. No hydronephrosis. Adrenals: No significant abnormality. Bowel: There is pneumatosis of the transverse colon. No evidence of bowel obstruction. Appendix: Normal. Lymph Nodes: No pathologically enlarged nodes. Vasculature: Normal caliber aorta. Fluid: Small amount of dependent hyperdensity within the free fluid near the inferior edge of the liver and spleen (image 37 series 3), may be infectious debris or related to blood products. Abdominal Wall: Small umbilical hernia containing fat as well as free gas. Other: Moderate intra-abdominal free gas. There is a moderate amount of free fluid within the abdomen. Moderate amount of stranding noted within the omentum. PELVIS: Prostate and Seminal Vesicles: No significant abnormality. Bladder: No significant abnormality. Lymph Nodes: No pathologically enlarged nodes. Fluid: Medium amount of fluid layers within the pelvis. Dependent hyperdensity within the layering fluid (image 90 series 3), may be infectious debris or hematocrit. Other: Small to medium bilateral fat-containing inguinal hernias. BONES: No suspicious bony lesions. LOWER CHEST: Calcified left hilar lymph node. Breathing motion artifact obscures assessment of the lung parenchyma. Small calcified left lower lobe granuloma. No significant consolidation or effusion. IMPRESSION: 1. Findings of gastric perforation along the lesser curvature with a 2.8 cm defect. Associated moderate amount of intra-abdominal free gas and moderate to large amount of intra-abdominal free fluid. Within the dependent portion of the free fluid, there is hyperdense layering material. This may be infectious debris (pus and gastric contents) or related to dependent blood products. Distinction is difficult on imaging. 2. Pneumatosis of the transverse colon is noted. 3. Moderate inflammatory change within the greater omentum. 4. Sigmoid diverticulosis without definite acute diverticulitis. No small bowel obstruction demonstrated. RADIA The call report notification system was initiated by Dr. Maira Pickett at 02:14 AM on 09/14/2019. The above call report findings were discussed with Ever Echols by Dr. Maira Pickett at 02:17 AM on 09/14/2019.
[2019-09-14] MEDS ORDERED: POTASSIUM CHLOR 10 MEQ/100 ML 10 MEQ/100 ML BAG IV ONE (02:45)
[2019-09-14] MEDS: LACTATED RINGERS 1,000 ML IV ONE ×2 (03:00→09:13)
[2019-09-14] MEDS ORDERED: LACTATED RINGERS 1,000 ML IV SCH ×2 (03:00→11:00)
--- NOTE | 2019-09-14 03:25 | ANESTHESIA ---
Pre-Anesthesia VS, & Labs - Diagnosis Acute abdomen, gastric perforation - Procedure Exploratory laparotomy Vital Signs: Temp Pulse Resp BP Pulse Ox 130 H 27 H 133/90 H 98 09/14/19 03:07 09/14/19 03:07 09/14/19 03:07 09/14/19 03:07 Height 5 ft 10 in Weight (kg) 90.718 kg Body Mass Index 28.7 - NPO Other - Lab Results Current Lab Results: Laboratory Tests 09/14/19 02:05: Lactic Acid 3.9 H* 09/14/19 02:05: Troponin I High Sens 11.2 09/14/19 02:03: Blood Type Recheck AB POSITIVE 09/14/19 02:03: Blood Type AB POSITIVE, Antibody Screen NEGATIVE, Crossmatch IS Only See Detail 09/14/19 01:45: Sodium 141, Potassium 3.2 L, Chloride 97 L, Carbon Dioxide 28, Anion Gap 16.0 H, BUN 17, Creatinine 1.6 H, Estimated GFR (MDRD) 46 L, Glucose 230 H, Calcium 8.7, Magnesium 1.9, Total Bilirubin 0.7, AST 28, ALT 19, Alkaline Phosphatase 64, Total Protein 6.9, Albumin 4.0, Globulin 2.9, Albumin/Globulin Ratio 1.4, Lipase 32 09/14/19 00:54: WBC 14.6 H, RBC 5.51, Hgb 16.4, Hct 50.5, MCV 91.7, MCH 29.8, MCHC 32.5, RDW 13.6, Plt Count 393, MPV 9.2, Neut # (Auto) 10.4 H, Lymph # (Auto) 3.2, [place] # (Auto) 0.5, Eos # (Auto) 0.3, Baso # (Auto) 0.1, Absolute Nucleated RBC 0.00, Nucleated RBC % 0.0 Fish Bones: 09/14/19 00:54 09/14/19 01:45 Home Medications and Allergies Active Medications Sodium Chloride (Normal Saline 0.9%) 1,000 mls @ 500 mls/hr IV .Q2H ONE Stop: 09/14/19 04:44 Potassium Chloride (Potassium Chloride) 10 meq in 100 mls @ 100 mls/hr IV ONCE ONE Stop: 09/14/19 03:44 Lactated Ringer's (Lr) 1,000 mls @ 200 mls/hr IV .Q5H KULWINDER Piperacillin Sod/Tazobactam (Sod 3.375 gm/ Sodium Chloride) 100 mls @ 200 mls/hr IV Q6H [place] Pantoprazole Sodium (Protonix) 40 mg IVP BID KULWINDER Sodium Chloride (Normal Saline Flush 0.9%) 10 ml IVP 0100,0900,1700 KULWINDER Sodium Chloride (Normal Saline Flush 0.9%) 10 ml IVP PRN PRN PRN Reason: NEEDED PER PROVIDER ORDERS Trazodone HCl 100 mg PO DAILY 08/01/18 buPROPion [Wellbutrin Sr] 100 mg PO DAILY 08/01/18 Bp Medication 01/01/19 Allergies/Adverse Reactions: Allergies Allergy/AdvReac Type Severity Reaction Status Date / Time codeine Allergy Unknown Verified 07/07/19 18:18 Anes History & Medical History - Medical History Cardiovascular: reports: Hypertension Pulmonary: reports: None Gastrointestinal: reports: Other (gastritis in the past) Neuro: reports: None Musculoskeletal: reports: None Endocrine/Autoimmune: reports: None (hyperglycemic on admission.) Smoking Status: Current every day smoker Exam General: Severe distress Dental: Other (edentulous) Respiratory: Respiratory distress, Rales (Bilateral), Rhonchi Cardiovascular: Regular rate (tachycardic), Normal S1, Normal S2, No murmurs Mental/Cognitive Status: Oriented to name, Other (Patient in severe distress and unable to give history. History obtained from medical record) Plan Anesthesia Type: General (Unable to obtain anesthesia consent due to severe distress. Risk/benefit discussed with patient but limited understanding due to distress.), Other (Will require possible arterial line, central line and post op ventilation.) Consent for Procedure(s) Verified and Reviewed: Yes Code Status: Attempt Resuscitation ASA classification: 4-Incapacitating disease Is this case an emergency?: Yes
--- NOTE | 2019-09-14 03:29 | CONSULTATION NOTE ---
Referring Provider Name of Referring Provider:: Dr. Jamar Haider Consult Date: 09/14/19 Chief Complaint - Chief Complaint Chief Complaint: abd pain History of Present Illness - Admitted From Admitted From:: ER - History Obtained From Records Reviewed: yes History obtained from: records, pt, Exam Limitations: pt confused, in severe abd pain, poor historian - History of Present Illness HPI Comment/Other: 53 yo male in his usual state of health until 11pm this evening, 4 hours ago, when he noted the onset of severe generalized abdominal pain without N/V, fever/chills, which failed to resolve with baking soda, and for which EMS was called and pt transported to the ER. He was given multiple doses of analgesics and lorazepam and is now a poor historian, so much of this history is from his , who is at home and reached by telephone. No prior similar sx, no prior abominal/gi problems, no hx PUD, minimal use of alcohol and NSAIDs per . He had been taking aspirin 81 mg daily but ran out recently. Records show recent prescription of diclofenac for back pain. In the ER he is c/o severe generalized constant steady abdominal pain, unable to get comfortable. Evaluation in the ER included CT abd/pelvis showing free air and fluid in abd cavity, and according to the radiologist a 2.8 cm perforation in the lesser curve of the stomach with adjacent complex fluid collection. Pneumatosis of the transverse mesocolon was also reported. Surgical consultation was requested. History - Past Medical History Cardiovascular: reports: Hypertension Respiratory: reports: None Neuro: reports: None Endocrine/Autoimmune: reports: None Psych: reports: Depression, Anxiety, Other Musculoskeletal: reports: Chronic back pain (low back) MRSA Hx?: No - Family & Social History Living arrangement: At home Living Situation: With spouse/s.o. - Substance History Use: Uses substance without health or social issues: Tobacco, Alcohol Tobacco Details: Cigarettes, E-Cigarettes - POLST Patient has POLST: No Meds/Allgy - Home Medications Home Medications: Ambulatory Orders Medication Instructions Recorded Confirmed Trazodone HCl 100 mg PO DAILY 08/01/18 Hydrocodone/Acetaminophen [Means 1 each PO Q6H PRN #15 tablet 07/02/19 5-325 Tablet] Methocarbamol [Robaxin] 500 mg PO Q6H PRN #30 tablet 07/02/19 Naproxen 375 mg PO BID #20 tablet 07/02/19 ARIPiprazole [Abilify] 5 mg PO DAILY 09/14/19 09/14/19 Bupropion HCl [Bupropion Xl] 300 mg PO DAILY 09/14/19 09/14/19 Losartan Potassium 25 mg PO DAILY 09/14/19 09/14/19 - Allergies Allergies/Adverse Reactions: Allergies Allergy/AdvReac Type Severity Reaction Status Date / Time codeine Allergy Unknown Verified 07/07/19 18:18 Review of Systems - Gastrointestinal Gastrointestinal: reports: Abdominal pain - All Other Systems All Other Systems: reports: Other (UNOBTAINABLE DUE TO confusion) Exam - Vital Signs Reviewed Vital Signs: Yes Vital Signs: Vital Signs x48h Pulse Resp BP Pulse Ox 09/14/19 03:07 130 H 27 H 133/90 H 98 09/14/19 02:32 144 H 30 H 135/102 H 95 09/14/19 01:57 144 H 40 H 132/94 H 98 09/14/19 01:00 150 H 30 H 160/112 H - Physical Exam General Appearance: positive: Severe distress, Anxious Eyes Bilateral: positive: Conjunctivae nml, No scleral icterus ENT: positive: ENT inspection nml, Pharynx nml, No signs of dehydration Neck: positive: Nml inspection, No JVD, Trachea midline. negative: Lymphadenopathy (R), Lymphadenopathy (L) Respiratory: positive: Chest non-tender, Rales (bibasilar) Cardiovascular: positive: Regular rate & rhythm, No murmur, No gallop, Tachycardia (sinus) Peripheral Pulses: positive: 2+ Abdomen: positive: Nml bowel sounds, Tenderness (severe, diffuse, rigid, board like abdomen with mottling of skin, small reducible umbilical hernia), Guarding, Rebound. negative: Hepatomegaly, Splenomegaly, Mass Back: positive: Nml inspection. negative: CVA tenderness (R), CVA tenderness (L) Skin: positive: Diaphoresis. negative: Color nml (cool, clammy, diaphoretic), Warm, Dry, Cyanosis Extremities: positive: No pedal edema. negative: Calf tenderness Neurologic/Psychiatric: positive: Motor nml, Sensation nml, Other (agitated, oriented to place, person, but unable to answser questions clearly) Conclusion/Plan - Diagnosis Diagnosis: Acute abdomen with pneumoperitoneum and findings c/w perforated gastric ulcer. Evolving sepsis/multiple organ failure with abnormal renal function tests and abn CXR, elevated lactate. - Plan Plan: Resuscitation with fluids, antibiotics, hospitalist consultation, then to OR for exploratory laparotomy and definitive surgery based on operative findings. PAR conference with patient's Isha Kaiser. - Lab Results Lab results reviewed: Yes Fish Bones: 09/14/19 00:54 09/14/19 01:45 - Diagnostic Imaging Results Diagnostic Imaging Results: positive: Final report reviewed, Read independently Diagnostic Imaging Results Comments: CXR, portable supine shows bilat diffuse infiltrates c/w pulmonary edema or pneumonitis.
--- NOTE | 2019-09-14 03:34 | XRAY Report ---
Reason: pre op; dyspnea Procedure Date: 09/14/2019 Accession Number: [id number] / [id number] Procedure: XR - Chest 1 View X-Ray CPT Code: 43285 FULL RESULT: EXAM: CHEST RADIOGRAPHY EXAM DATE: 09/14/2019 03:23 AM. CLINICAL HISTORY: Pre op; dyspnea. COMPARISON: SHOULDER 3 VIEW LT 06/18/2019 10:00 AM. TECHNIQUE: 1 view. FINDINGS: Lungs/Pleura: Moderate to severe interstitial and airspace opacities throughout both lungs. No pleural effusion. No pneumothorax. Mediastinum: Obscured by the multifocal lung opacities and low lung volumes. Other: Old right clavicular fracture. The enteric tube tip is in the left upper quadrant in the region of the stomach. IMPRESSION: Multifocal lung opacities with low lung volumes, which may reflect a combination of consolidation (such as pulmonary edema or multifocal pneumonia ) and atelectasis. RADIA
[2019-09-14] MEDS ORDERED: HYDROmorphone 2 MG/ML VIAL IVP PRN (03:37)
--- NOTE | 2019-09-14 03:44 | HISTORY & PHYSICAL EXAMINATION ---
Chief Complaint - Chief Complaint Chief Complaint: abdominal pain History of Present Illness - Admitted From Admitted From:: [facility] ED - History Obtained From Records Reviewed: yes History obtained from: ED physician Exam Limitations: severe pain - History of Present Illness HPI Comment/Other: Patient was seen on 09/14/19 around 02:30 am. This history was mainly obtain from the HPI of the ED H&P because the patient is in severe distress and unable to provide a reliable history. Patient is a 53 y/o male who presented to the ED with complain of abrupt upper abdominal pain. After dinner he had a feeling of abdominal fullness and he felt like he needed to belch. Shortly afterwards, he started having diffuse crampy abdominal pain which worsened within minutes. He took some sodium bicarbonate with no improvement. It is reported that he has a remote history of gastritis and ulcers in the past but not currently. Also that he denied taking NSAIDS. However he has naproxen in his list of medication. It was also reported that he recently had a prescription of diclofenac and that he used to take aspirin for back pain but ran out recently. CT abdomen/pelvis showed free air and fluid in the abdominal cavity. It also showed a perforation in the lesser curvature of the stomach. When I presented to bedside patient was in severe pain and unable to communicate effectively. He had an NG tube in place. The collection in the suction canister appear red in color. His abdomen was significantly distended, very firm and painful to palpation. Bowel sound were very diminished. He had significant mottling from the lower half of his abdomen downwards. Dr Sylvain Palmer (General Surgeon) was also at bedside. History - Past Medical History Cardiovascular: reports: Hypertension Respiratory: reports: None Neuro: reports: None Endocrine/Autoimmune: reports: None GI: reports: Other (gastritis in the past) Psych: reports: Depression, Anxiety, Other Musculoskeletal: reports: Chronic back pain (low back) MRSA Hx?: No - Past Surgical History Other past surgical history: Could not obtain at this time due to his current clinical condition - Family & Social History Family History Comment/Other: Could not obtain at this time due to his current clinical condition Living arrangement: At home Living Situation: With spouse/s.o. - Substance History Use: Uses substance without health or social issues: Tobacco, Alcohol Tobacco Details: Cigarettes, E-Cigarettes - POLST Patient has POLST: No POLST Status: Full Code Meds/Allgy - Home Medications Home Medications: Ambulatory Orders Medication Instructions Recorded Confirmed Trazodone HCl 100 mg PO DAILY 08/01/18 Hydrocodone/Acetaminophen [[place] 1 each PO Q6H PRN #15 tablet 07/02/19 5-325 Tablet] Methocarbamol [Robaxin] 500 mg PO Q6H PRN #30 tablet 07/02/19 Naproxen 375 mg PO BID #20 tablet 07/02/19 ARIPiprazole [Abilify] 5 mg PO DAILY 09/14/19 09/14/19 Bupropion HCl [Bupropion Xl] 300 mg PO DAILY 09/14/19 09/14/19 Losartan Potassium 25 mg PO DAILY 09/14/19 09/14/19 - Allergies Allergies/Adverse Reactions: Allergies Allergy/AdvReac Type Severity Reaction Status Date / Time codeine Allergy Unknown Verified 07/07/19 18:18 Review of Systems - Other Findings Other Findings: ROS was limited due to patient's state of severe acute distress. Prior Level of Functionality: Patient is independent of activities of daily living. Up to the moment of onset of his symptoms, he was doing well. He works at [employer] Exam - Vital Signs Vital Signs: Vital Signs x48h Pulse Resp BP Pulse Ox 09/14/19 03:07 130 H 27 H 133/90 H 98 09/14/19 02:32 144 H 30 H 135/102 H 95 09/14/19 01:57 144 H 40 H 132/94 H 98 09/14/19 01:00 150 H 30 H 160/112 H - Physical Exam General Appearance: positive: Severe distress, Anxious Eyes Bilateral: positive: Normal inspection, PERRL, EOMI ENT: positive: Other (ng tube in place.) Neck: positive: Nml inspection, No JVD, Trachea midline Respiratory: positive: Chest non-tender, Other (tachypneic,) Cardiovascular: positive: Tachycardia Abdomen: positive: Tenderness (Extremely tender), Abnml bowel sounds (significantly diminished bowel sounds), Other (Extremely distended and firm) Skin: positive: Other (Significant mottling from midabdomen distally) Extremities: positive: No pedal edema, Other (mottled). negative: Nml appearance Neurologic/Psychiatric: negative: Oriented x3 (Mentation steadily decline in the ED) Sepsis Event Note (H) - Evaluation Current Stage of Sepsis: Sepsis Possible source of Sepsis: positive: GI tract/intra-abdominal - Sepsis Criteria Sepsis Criteria: Recorded Heart Rate greater than 90 bpm, Recorded Respiratory Rate greater than 20, WBC count greater than 12,000 or less than 4000, Metabolic: lactate > 2 mmol/L Conclusion/Plan - Problem List (1) Sepsis Conclusion/Plan: 2/2 Peritonitis from gastric perforation Patient started on Zosyn 3.375g. Will continue q8hrs Will trend lactic acid. Patient intubated and sedated: SIMV/FiO2 30%/R 16/PEEP 5 Patient will likely be on levophed and IV fluids s/p surgery Concern for developing ARDS is significant (2) Perforated stomach Conclusion/Plan: Likely 2/2 NSAID use Patient has recently been on diclofenac and aspirin. He also has naproxen on his list of medications Protonix 40mg IV bid ordered. Patient taken to the OR for Ex Lap by Dr Sylvain Palmer (3) Peritonitis Conclusion/Plan: 2/2 Perforated stomach Patient taken to OR for Ex Lap. On Zosyn (4) Hypertension Conclusion/Plan: Will hold antinypertensive. Suspect patient will likely become hypotensive in light of stomach perforation and sepsis. He will likely need more IV hydration and a pressor (5) Acute renal failure Conclusion/Plan: Likely 2/2 Sepsis. Receiving IV antibiotics and hydration There is increased likelihood for shock: either 2/2 sepsis or hypovolemia In light of this, patient is at risk of ATN Will repeat BMP and consider adding bicarbonate drip (6) Schizoaffective disorder Conclusion/Plan: On abilify Qualifiers: Schizoaffective disorder type: bipolar Qualified Code(s): F25.0 - Schiz oaffective disorder, bipolar type (7) Depression Conclusion/Plan: On bupropion - Lab Results Fish Bones: 09/14/19 00:54 09/14/19 01:45 Core Measures - Anticipated LOS I expect patient to be DC'd or transferred within 96 hours.: Yes - DVT/VTE - Prophylaxis VTE/DVT Device ordered at admit?: Yes
[2019-09-14] MEDS ORDERED: ROCURONIUM 50 MG/5 ML VIAL IVP ONE (04:07)
[2019-09-14] MEDS ORDERED: NEOSTIGMINE 1 MG/1 ML 10 ML MDV IVP ONE (04:07)
[2019-09-14] MEDS ORDERED: MIDAZOLAM 2 MG/2 ML VIAL IVP ONE (04:07)
[2019-09-14] MEDS ORDERED: KETAMINE 500 MG/10 ML VIAL IVP ONE (04:07)
[2019-09-14] MEDS ORDERED: SUCCINYLCHOLINE 200 MG/10 ML VIAL IVP ONE (04:07)
[2019-09-14] MEDS ORDERED: LACTATED RINGERS 1,000 ML IV ONE ×2 (04:07→14:36)
[2019-09-14] MEDS ORDERED: PROPOFOL 200 MG/20 ML VIAL IVP ONE (04:07)
[2019-09-14 05:10] LABS: ABG PCO2 54 mmHg (34-45); ABG PH 7.27 (7.35-7.45); ABG PO2 87 mmHg (80-100)
[2019-09-14 05:11] LABS: ABG BASE EXCESS -3.7 mmol/L (-2.0-3.0); ABG HCO3 24.1 mmol/L (22.0-26.0); ABG OXYGEN SATURATION 96 % (94-98); ABG TCO2 25.7 MMOL/L (21.0-29.0)
[2019-09-14] MEDS ORDERED: PANTOPRAZOLE 40 MG VIAL IVP SCH ×4 (07:00→21:00)
[2019-09-14] MEDS ORDERED: PIPERACILLIN/TAZOBACTAM 3.375 GM in SODIUM CHLORIDE 0.9% MINIBAG 100 ML IV SCH ×3 (07:00→10:00)
[2019-09-14] MEDS ORDERED: BUPIVACAINE 0.5%-EPI 1:200000 PF 30 ML VIAL SUBQ ONE (07:20)
[2019-09-14] MEDS ORDERED: BUPIVACAINE 0.5%-EPI 1:200000 PF 30 ML VIAL ONE (07:27)
--- NOTE | 2019-09-14 07:28 | OPERATIVE REPORT ---
Operative Report - General Admit Date: 09/14/19 Procedure Date: 09/14/19 Planned Procedure: Exploratory laparotomy Pre-Op Diagnosis: Acute abdomen, pneumoperitoneum, perforated gastric ulcer Procedure Performed: Exploratory laparotomy, repair gastric laceration/perforation with biopsy of gastric wall. Post Op Diagnosis: Laceration/perforation of gastric wall with peritonitis - Procedure Note Primary Surgeon: Sylvain Palmer MD [facility] Anesthesia Provider: Isis Hemphill CRNA Anesthesia Technique: General ET tube Pathology: gastric wall biopsies IV Fluids (mL): 500 Estimated Blood Loss (mL): 100 Drain/Tube Type: Luis drain (in lesser sac) Indications: Acute abdomen with generalized peritonitis and CT showing probable large gastric perforation along the lesser curvature. Findings: An 8 cm linear laceration along the lesser curvature extending from the angularis proximally, ending near the GE junction; 3.5 liters of gastric contents and food were present in the peritoneal cavity. No evidence of gastric ulcer or neoplasm. Early fibrinopurulent peritonitis was noted. Complications: none
--- NOTE | 2019-09-14 08:35 | OPERATIVE REPORT ---
DATE OF SERVICE: 09/14/2019 Physician: Sylvain Palmer MD PREOPERATIVE DIAGNOSIS: Acute abdomen with pneumoperitoneum and suspected perforated gastric ulcer. POSTOPERATIVE DIAGNOSIS: Gastric laceration/perforation with generalized peritonitis. PROCEDURE PERFORMED: Exploratory laparotomy, biopsy and repair of gastric laceration. ANESTHESIA: General endotracheal by Isis Hemphill CRNA. SURGEON: Sylvain Palmer MD ESTIMATED BLOOD LOSS: 100 mL, replaced 500 mL crystalloid solution. COMPLICATIONS: None. FINDINGS: Abdominal exploration revealed 3.5 liters of gastric contents within the abdominal cavity, there was evidence of early diffuse fibrinopurulent peritonitis along the lesser curvature of the stomach, beginning at the incisura angularis, and extending approximately 8 cm, almost to the GE junction was a linear full-thickness laceration, the proximal portion of which was partially contained within the gastrohepatic ligament. There was no evidence of gastric ulceration or neoplasm. The remainder of the stomach, liver, gallbladder, colon, small bowel appeared normal except for the fibrin exudate throughout the abdominal cavity. INDICATIONS: The patient is a 53-year-old gentleman in his usual state of health until he awoke approximately 4 hours prior to surgery with the acute onset of severe generalized abdominal pain for which he presented to the emergency room where he was noted to have an acute surgical abdomen and a CT scan showing evidence of pneumoperitoneum and free fluid and what appeared to be a 2.6 cm perforation of the gastric wall along the lesser curvature. This was thought to be a perforated ulcer. He had been using NSAIDs for back pain. Following resuscitation with fluids and institution of broad-spectrum antibiotic therapy, he was advised to undergo exploratory laparotomy and definitive treatment based on operative findings. TECHNIQUE: After informed consent verbally from the patient and from the patient's , the patient was taken to the operating room where he was placed under general endotracheal anesthesia. Preoperative preparation included administration of 3 liters of crystalloid solution 3.375 grams of Zosyn and application of sequential calf compression boots. His abdomen was prepared with ChloraPrep solution and draped in the usual sterile fashion. An upper midline incision was used, extending from the xiphoid process to just above the umbilicus and carried down through the layers of abdominal wall until the peritoneum was identified and entered sharply. Hemostasis achieved with electrocautery and the LigaSure device. The abdomen was explored with findings noted above. The Bookwalter retractor system was used to facilitate exposure. The procedure was technically difficult due to body habitus, marked peritonitis and inflammation, and the location of the injury. The gastrohepatic ligament was mobilized and the lesser curvature of the stomach carefully explored with findings as noted above. Careful dissection was performed to identify the full proximal extent of the laceration following which, the edges of the gastric wall were biopsied in multiple places and the tissue sent for pathologic evaluation. The edges of the laceration were mobilized and seemed to be viable and repair was then performed in 2 layers using a full-thickness initial layer of 2-0 Vicryl to close the laceration followed by a second layer of 2-0 Vicryl using a seromuscular Lembert technique. After hemostasis was assured, the abdominal cavity was copiously irrigated with saline solution, 8 liters were used in an attempt to completely remove gastric contents and exudate throughout the abdominal cavity. A #10 Luis drain was placed in the epigastrium with the tip in the lesser sac and made to exit a stab wound in the left upper quadrant connected to bulb suction and secured with 3-0 nylon suture. A tongue of omentum was also placed over the gastric suture line. The incision was then closed in layers using a doubled 0 PDS to reapproximate the midline fascia in a continuous fashion followed by leaving the skin open except for a few skin nima to reapproximate the skin in the mid portion of the incision and 1 additional placed proximally and distally. Saline wet-to-dry sponges were applied, followed by dry sterile dressing. Anesthesia was terminated. The patient was transferred to the Intensive Care Unit in critical condition. Sponge and needle counts were correct x2 and a single Luis drain was used. cc: CAROL Gao TD: 09/14/2019 07:48 MTDD
[2019-09-14 08:44] LABS: EOSINOPHILS % (AUTO) 0.3 %; HGB - HEMOGLOBIN 17.3 g/dL (14.0-18.0); LYMPHOCYTES % (AUTO) 27.1 %; MEAN CORPUSCULAR HEMOGLOBIN 30.7 pg (27.0-31.0); MEAN CORPUSCULAR HGB CONC 32.6 g/dL (32.0-36.0); MEAN CORPUSCULAR VOLUME 94.1 fL (80.0-94.0); MEAN PLATELET VOLUME 8.3 fL (7.4-11.4); NEUTROPHILS % (AUTO) 64.3 %; PLT - PLATELET COUNT 378 10^3/uL (130-450); RED BLOOD COUNT 5.64 10^6/uL (4.70-6.10); RED CELL DISTRIBUTION WIDTH 13.6 % (12.0-15.0)
[2019-09-14] MEDS ORDERED: VANCOMYCIN INJ 1.5 GM in SODIUM CHLORIDE 0.9% 250 ML IV SCH (09:00)
[2019-09-14] MEDS ORDERED: CHLORHEXIDINE GLUCONATE 15 ML UDC PO SCH (09:00)
[2019-09-14] MEDS ORDERED: SODIUM CHLORIDE FLUSH 0.9% 10 ML SYRINGE IVP SCH (09:00)
[2019-09-14] MEDS ORDERED: FLUCONAZOLE 200 MG/100 ML 100 ML IV SCH (09:00)
[2019-09-14 09:01] LABS: MAGNESIUM 1.7 mg/dL (1.7-2.8); PHOSPHORUS 3.2 mg/dL (2.5-4.6)
[2019-09-14] MEDS: PROPOFOL 1000 MG/100 ML 100 ML IV SCH ×2 (09:15→14:39)
[2019-09-14] MEDS: SODIUM CHLORIDE FLUSH 0.9% 10 ML SYRINGE IVP PRN ×4 (09:24→12:49)
[2019-09-14 09:27] LABS: CALCIUM 7.5 mg/dL (8.5-10.3); CREATININE 1.8 mg/dL (0.6-1.2)
[2019-09-14 09:32] LABS: ABG BASE EXCESS -6.5 mmol/L (-2.0-3.0); ABG HCO3 24.1 mmol/L (22.0-26.0); ABG OXYGEN SATURATION 98 % (94-98); ABG TCO2 26.2 MMOL/L (21.0-29.0)
[2019-09-14 09:35] LABS: ABG PCO2 68 mmHg (34-45); ABG PH 7.17 (7.35-7.45); ABG PO2 159 mmHg (80-100)
--- NOTE | 2019-09-14 09:37 | XRAY Report ---
Reason: CONFIRM CHEST TUBE AND LINE PLACEMENT Procedure Date: 09/14/2019 Accession Number: [id number] / [id number] Procedure: XR - Chest for Line Placement CPT Code: FULL RESULT: EXAM: CHEST RADIOGRAPHY EXAM DATE: 09/14/2019 08:29 AM. CLINICAL HISTORY: Central line placement. COMPARISON: CHEST 1 VIEW 09/14/2019 3:07 AM. TECHNIQUE: 1 view. FINDINGS: Lungs/Pleura: No focal opacities evident. No pleural effusion. No pneumothorax. Mediastinum: Within exam limitations, the cardiomediastinal contour is normal. Other: Right-sided central line terminates in the upper radiation. Endotracheal tube terminates 5.4 cm above marcus. Enteric tube extends into the stomach. IMPRESSION: Right-sided central line terminates in the upper right atrium. No pneumothorax. RADIA
[2019-09-14 09:51] LABS: ABNORMAL LYMPHS % (MANUAL) 0 %
[2019-09-14 09:53] LABS: BAND NEUTROPHILS % (MANUAL) 6 %; DIFFERENTIAL COMMENT MANUAL DIFFERENTIAL; LYMPHOCYTES # (MANUAL) 1.8 10^3/uL (1.5-3.5); LYMPHOCYTES % (MANUAL) 44 %; METAMYELOCYTES % (MANUAL) 2 %; MONOCYTES # (MANUAL) 0.4 10^3/uL (0.0-1.0); PLATELET ESTIMATE, MANUAL NORMAL (130-450,000) (NORMAL); PLATELET MORPHOLOGY NORMAL APPEARANCE (NORMAL); RBC MORPHOLOGY (MULTIPLE) NORMAL APPEARANCE (NORMAL)
[2019-09-14] MEDS ORDERED: VANCOMYCIN INJ 2 GM in SODIUM CHLORIDE 0.9% 500 ML IV ONE (10:00)
[2019-09-14] MEDS ORDERED: ACETAMINOPHEN 1,000 MG/100 ML 100 ML IV PRN (10:28)
[2019-09-14 11:17] LABS: ABG BASE EXCESS -5.5 mmol/L (-2.0-3.0); ABG HCO3 21.5 mmol/L (22.0-26.0); ABG OXYGEN SATURATION 99 % (94-98); ABG PCO2 47 mmHg (34-45); ABG PH 7.28 (7.35-7.45)
[2019-09-14 11:21] LABS: ABG PO2 205 mmHg (80-100)
[2019-09-14] MEDS ORDERED: DEXTROSE 10% 250 ML IV STA (13:38)
[2019-09-14 13:45] LABS: ABG BASE EXCESS -5.9 mmol/L (-2.0-3.0); ABG HCO3 19.5 mmol/L (22.0-26.0); ABG OXYGEN SATURATION 99 % (94-98); ABG PCO2 38 mmHg (34-45); ABG PH 7.33 (7.35-7.45); ABG PO2 141 mmHg (80-100); ABG TCO2 20.6 MMOL/L (21.0-29.0)
[2019-09-14] MEDS ORDERED: VASOPRESSIN 20 UNIT in DEXTROSE 5% 99 ML IV SCH (14:00)
[2019-09-14] MEDS ORDERED: DEXTROSE 5%-0.45% NACL 1,000 ML IV SCH (14:00)
[2019-09-14 14:21] LABS: CALCIUM 7.4 mg/dL (8.5-10.3); CREATININE 2.8 mg/dL (0.6-1.2)
[2019-09-14 14:46] LABS: MAGNESIUM 1.6 mg/dL (1.7-2.8); PHOSPHORUS 1.8 mg/dL (2.5-4.6)
[2019-09-14] MEDS ORDERED: PHENYLEPHRINE 20 MG in SODIUM CHLORIDE 0.9% 248 ML IV ONE (15:13)
[2019-09-14] MEDS ORDERED: POTASSIUM PHOSPHATE 15 MMOL in SODIUM CHLORIDE 0.9% 250 ML IV ONE (15:14)
[2019-09-14] MEDS ORDERED: MAGNESIUM SULFATE 1 GM in SODIUM CHLORIDE 0.9% 50 ML IV ONE (15:14)
[2019-09-14 15:52] VITALS: BP 40/29
--- NOTE | 2019-09-14 19:49 | DISCHARGE SUMMARY ---
"Discharge Summary Admit Date: 09/14/19 Discharge Date: 09/14/19 Discharging Provider: Dr. Umang Shah Primary Care Provider: Dr. Erick Clifford Code Status: Attempt Resuscitation Condition at Discharge: Critical Discharge Disposition: 02 Transfer Acute Care Hosp Dis[facility]: [facility] - DIAGNOSES Admission Diagnoses: Sepsis Perforated stomach Peritonitis Hypertension Acute renal failure Schizoaffective disorder Depression Discharge Diagnoses with Status of Each Condition: Sepsis with septic shock - worsening Perforated stomach - worsening Hypotension - worsening Acute renal failure - worsening Acute hypoxic respiratory failure - stable Schizoaffective disorder - stable - HPI History of Present Illness: Patient is a 53 y/o male who presented to the ED with complain of abrupt upper abdominal pain. After dinner he had a feeling of abdominal fullness and he felt like he needed to belch. Shortly afterwards, he started having diffuse crampy abdominal pain which worsened within minutes. He took some sodium bicarbonate with no improvement. It is reported that he has a remote history of gastritis and ulcers in the past but not currently. Also that he denied taking NSAIDS. However he has naproxen in his list of medication. It was also reported that he recently had a prescription of diclofenac and that he used to take aspirin for back pain but ran out recently. CT abdomen/pelvis showed free air and fluid in the abdominal cavity. It also showed a perforation in the lesser curvature of the stomach. When I presented to bedside patient was in severe pain and unable to communicate effectively. He had an NG tube in place. The collection in the suction canister appear red in color. His abdomen was significantly distended, very firm and painful to palpation. Bowel sound were very diminished. He had significant mottling from the lower half of his abdomen downwards. Dr Sylvain Palmer (General Surgeon) was also at bedside. - CONSULTS | PROCEDURES Consultations: General Surgery Procedures: Exploratory laparotomy, repair gastric laceration/perforation with biopsy of gastric wall. - HOSPITAL COURSE Hospital Course: Patient was admitted to the ICU after he underwent exploratory laparotomy, repair gastric laceration/perforation for the perforated stomach. He was hypotensive and required levophed for pressor support. He was continued on Zosyn. Vancomycin and Diflucan were added given gram stain showed gram positive cocci and yeast. He remained oliguric and renal function continued to decline. Lactic acid continued to increase despite hydration and pressor support. His ventilation requirements did improve and his FiO2 was decreased to 35% from 65% initially. After showing signs of improvement in his blood pressure, he became persistently febrile with a temperature of 40 degrees celsisus despite IV acetaminophen and ice packs. His blood pressure began to decline further and he required the addition of vasopressin as well as Mamadou-synephrine. [facility] was contacted for potential transfer and the patient was graciously accepted by Dr. Kemal Fernández. I spoke with the patient's , Isha, throughout this time and she was informed of the decision to transfer and where the patient would be going. The staff here is greatly concerned about this patient and we all hope that his clinical status improves. - ALLERGIES Allergies/Adverse Reactions: Allergies Allergy/AdvReac Type Severity Reaction Status Date / Time codeine Allergy Unknown Verified 07/07/19 18:18 - MEDICATIONS Home Medications: Ambulatory Orders Medication Instructions Recorded Confirmed Hydrocodone/Acetaminophen [[place] 1 each PO Q6H PRN #15 tablet 07/02/19 09/14/19 5-325 Tablet] ARIPiprazole [Abilify] 5 mg PO QPM 09/14/19 09/14/19 Cyclobenzaprine HCl 10 mg PO TID PRN 09/14/19 09/14/[address] [Voltaren] 75 mg PO BIDWM 09/14/19 09/14/19 Losartan Potassium 25 mg PO DAILY 09/14/19 09/14/19 buPROPion [Wellbutrin Sr] 300 mg PO DAILY 09/14/19 09/14/19 - PHYSICAL EXAM AT DISCHARGE General Appearance: positive: Other (Sedated with propofol.) Eyes Bilateral: positive: Conjunctivae nml ENT: positive: Other (ET tube in lace. NG tube in place to suction.) Respiratory: positive: Rhonchi. negative: Wheezes Cardiovascular: positive: No murmur, Tachycardia. negative: Bradycardia, Systolic murmur, Diastolic murmur Abdomen: positive: Abnml bowel sounds (Hypoactive), Other (Dressing in place over the abominal incision with LAQUITA drain in place.) Skin: positive: Other (His lower extremites are mottled and cool to touch.) Extremities: positive: No pedal edema Neurologic/Psychiatric: positive: Other (Sedated. Not following commands.) - LABS Result Diagrams: 09/14/19 08:36 09/14/19 13:50 - SEPSIS Current Stage of Sepsis: Sepsis Possible source of Sepsis: GI tract/intra-abdominal Sepsis Criteria: Recorded Temperature greater than 38.3C or Less than 36C, Recorded Heart Rate greater than 90 bpm, Recorded Respiratory Rate greater than 20, Respiratory: Increasing oxygen requirements, WBC count greater than 12,000 or less than 4000, SBP drop more than 40mHg, SBP less than 90 mmHg, Renal: urine output less than 0.5ml/kg/hr for 2 hours or creatinine gr, Metabolic: lactate > 2 mmol/L - TIME SPENT Time Spent in Discharge (Minutes): 75"
[2019-09-14] MEDS ORDERED: VANCOMYCIN INJ 1 GM, VANCOMYCIN INJ 500 MG in SODIUM CHLORIDE 0.9% 500 ML IV SCH (22:00)
== END 2019-09-14 16:00 | disposition short-term general hospital (02) | DRG 853 ==
LOC: EDUNIT# → ED 00:44 → ICU 02:57
PROVIDERS: ADMIT Internal Medicine; ATTEND Internal Medicine
PROC: 0DB60ZX Excision of Stomach, Open Approach, Diagnostic (ICD-10-PCS; 2019-09-14)
PROC: 5A1935Z Respiratory Ventilation, Less than 24 Consecutive Hours (ICD-10-PCS; 2019-09-14)
PROC: 0DQ60ZZ Repair Stomach, Open Approach (ICD-10-PCS; principal; 2019-09-14 04:00)
DX: A41.9 Sepsis, unspecified organism (principal); R65.21 Severe sepsis with septic shock; J96.01 Acute respiratory failure with hypoxia; K65.0 Generalized (acute) peritonitis; N17.9 Acute kidney failure, unspecified; K31.89 Other diseases of stomach and duodenum; K66.8 Other specified disorders of peritoneum; I10 Essential (primary) hypertension; F25.0 Schizoaffective disorder, bipolar type; M54.5 Low back pain; G89.29 Other chronic pain; K42.9 Umbilical hernia without obstruction or gangrene; F17.210 Nicotine dependence, cigarettes, uncomplicated; F17.290 Nicotine dependence, other tobacco product, uncomplicated; Z78.1 Physical restraint status; Z79.899 Other long term (current) drug therapy; Z92.29 Personal history of other drug therapy; Z87.11 Personal history of peptic ulcer disease; Z87.19 Personal history of other diseases of the digestive system
CPT/HCPCS: 36415; 71045; 74177; 80048; 80053; 82040; 82803; 83605; 83690; 83735; 84100; 84484; 85025; 85610; 86850; 86900; 86901; 86920; 87040; 87070; 87077; 87181; 87205; 94002; 96374; 96375; 96376; 99285; 99291; A9270; J0131; J0330; J1170; J2060; J3370; J3490; J7120; Q9967; 87150; 94770

== ENCOUNTER 2020-05-25 11:17 | Outpatient (CLI) | payer MEDICAID, OTHER ==
--- NOTE | 2020-05-25 11:36 | XRAY Report ---
Reason: LUMBAR RADICULOPATHY Procedure Date: 05/25/2020 Accession Number: [id number] / [id number] Procedure: [facility] - Lumbar Spine 2 View CPT Code: Final Report FULL RESULT: PROCEDURE: Lumbar Spine 2 View INDICATIONS: LUMBAR RADICULOPATHY TECHNIQUE: 3 views of the lumbar spine were acquired. COMPARISON: None. FINDINGS: Bones: 5 [id number] vertebrae are present. There is normal bony alignment. No vertebral body compression fractures. No suspicious bony lesions. Multilevel endplate osteophytes and disc space narrowing. Facet hypertrophy throughout the mid and lower lumbar spine. Soft tissues: Overlying bowel gas pattern is normal. No suspicious soft tissue calcifications. IMPRESSION: Multilevel degenerative disc and facet disease. No acute fracture. No osseous lesion. If symptoms and/or clinical suspicion for pathology continue, further assessment with repeat plain films, or advanced imaging (e.g., CT, MRI, or bone scan) is recommended for further assessment. Reviewed by: Adrienne Esteban MD on 05/25/2020 11:34 AM PDT Approved by: Adrienne Esteban MD on 05/25/2020 11:34 AM PDT Station ID: [id number]
== END 2020-05-25 23:59 | disposition home or self-care (01) ==
LOC: DI.WCP 11:17
PROVIDERS: ATTEND Family Medicine
DX: M51.36 Other intervertebral disc degeneration, lumbar region (principal); M47.816 Spondylosis without myelopathy or radiculopathy, lumbar region
CPT/HCPCS: 72100

== ENCOUNTER 2020-06-05 15:44 | Outpatient (CLI) | payer MEDICAID ==
--- NOTE | 2020-06-05 16:53 | XRAY Report ---
PROCEDURE: Cervical Spine 2 View INDICATIONS: CERVICAL RADICULOPATHY TECHNIQUE: 3 view(s) of the cervical spine were acquired. COMPARISON: None. FINDINGS: Bones: No fractures or dislocations to the T1 level. The lateral masses of C1 appear intact on the odontoid view. No suspicious bony lesions. At C5-6 there is near severe degenerative disc disease w ith large anterior bridging osteophytes between C5 and C6. Moderately severe degenerative changes are seen at C6-C7. No subluxation is associated. Soft tissues: No prevertebral soft tissue swelling. IMPRESSION: Moderately severe to severe degenerative disc disease from C5 through C7, with the most pronounced degree of degeneration at C5-6. Spinal and foraminal stenosis at these 2 levels likely is present. Reviewed by: Tremaine Kaiser MD on 06/05/2020 4:52 PM PDT Approved by: Tremaine Kaiser MD on 06/05/2020 4:52 PM PDT Station ID: [id number]
== END 2020-06-05 15:45 | disposition home or self-care (01) ==
LOC: DI 15:44
PROVIDERS: ATTEND Family Medicine
DX: M50.122 Cervical disc disorder at C5-C6 level with radiculopathy (principal); M48.02 Spinal stenosis, cervical region
CPT/HCPCS: 72040

== ENCOUNTER 2020-07-16 05:11 | Emergency (ER) | payer MEDICAID ==
--- NOTE | 2020-07-16 05:20 | ED Physician Documentation ---
History of Present Illness - Stated complaint Stated Complaint: L SHOULDER PX - History obtained from History obtained from: Patient - Additonal information Additional information: The patient is a 54-year-old male who presents with a chief complaint of left- sided trapezius pain secondary to cervical radiculopathy that is causing him to lose sleep.The patient does report that he had been on pain medication but he is run out of it. He reports he is taken some type of muscle relaxer but it is not helping him. He denies fevers denies any new injuries reports that this is chronic in nature for him and he is scheduled to follow-up with his primary care provider on Friday he had an MRI of the cervical spine on July [id number] which showed no severe central canal stenosis but shows diffuse cervical chronic changes. Review of Systems Constitutional: reports: Reviewed and negative Eyes: reports: Reviewed and negative Ears: reports: Reviewed and negative Nose: reports: Reviewed and negative Throat: reports: Reviewed and negative Cardiac: reports: Reviewed and negative Respiratory: reports: Reviewed and negative GI: reports: Reviewed and negative : reports: Reviewed and negative Skin: reports: Reviewed and negative Musculoskeletal: reports: Neck pain, Other Neurologic: reports: Reviewed and negative Psychiatric: reports: Reviewed and negative Endocrine: reports: Reviewed and negative Immunocompromised: reports: Reviewed and negative PD PAST MEDICAL HISTORY - Past Medical History Cardiovascular: Hypertension, High cholesterol Respiratory: None, COPD Neuro: None Endocrine/Autoimmune: None GI: Chronic diarrhea, Other Psych: Depression, Anxiety, Bipolar disorder, ADD/ADHD, Other Musculoskeletal: Chronic back pain - Past Surgical History Past Surgical History: No - Present Medications Home Medications: Ambulatory Orders Medication Instructions Recorded Confirmed ARIPiprazole [Abilify] 5 mg PO QPM 09/14/19 07/16/[address] [Voltaren] 75 mg PO BIDWM 09/14/19 07/16/20 Losartan Potassium 25 mg PO DAILY 09/14/19 07/16/20 buPROPion [Wellbutrin Sr] 300 mg PO DAILY 09/14/19 07/16/20 diazePAM [Valium] 5 mg PO BID PRN #5 tablet 07/16/20 predniSONE [Prednisone] 50 mg PO DAILY 5 Days #5 tablet 07/16/20 - Allergies Allergies/Adverse Reactions: Allergies Allergy/AdvReac Type Severity Reaction Status Date / Time codeine AdvReac Cramps Verified 07/16/20 05:28 - Social History Does the pt smoke?: Yes Smoking Status: Current every day smoker Does the pt drink ETOH?: Yes Does the pt have substance abuse?: No - Immunizations Immunizations are current?: Yes - POLST Patient has POLST: No POLST Status: Full Code PD ED PE NORMAL - Vitals Vital signs reviewed: Yes - General General: Alert and oriented X 3, No acute distress, Well developed/nourished - HEENT HEENT: Atraumatic, PERRL - Neck Neck: Supple, no meningeal sign, No adenopathy, Thyroid normal, No JVD, Other (No cervical tenderness to palpation no midline cervical step-offs or deformities there is left trapezius muscle spasm present.) - Cardiac Cardiac: RRR, No murmur, Strong equal pulses - Respiratory Respiratory: No respiratory distress, Clear bilaterally - Abdomen Abdomen: Normal bowel sounds, Soft, Non tender, Non distended, No organomegaly - Back Back: No CVA TTP, No spinal TTP - Derm Derm: Normal color, Warm and dry, No rash - Extremities Extremities: No deformity, Normal ROM s pain, No edema, No calf tenderness / cord, Other (There is tenderness to the left upper extremity on range of motion of the left shoulder patient does have decreased range of motion of left shoulder there is left fifth trapezius muscle spasm noted no cervical midline tenderness palpation. Neurosurgery Physician strength is 5 out of 5 sensations intact light touch c) - Neuro Neuro: Alert and oriented X 3 - Psych Psych: Normal mood, Normal affect Results - Vitals Vitals: Vital Signs - 24 hr 07/16/20 07/16/20 05:15 06:02 Temperature 36.2 C L Heart Rate 106 H 93 Respiratory 16 14 Rate Blood Pressure 139/88 H 136/88 H O2 Saturation 97 99 Oxygen O2 Source Room air PD MEDICAL DECISION MAKING - ED course Complexity details: considered differential (Cervical radiculopathy, Acute on chronic. Will treat with prednisone burst and Valium for muscle relaxation for muscle spasms.) ED course: Plan is to treat with prednisone burst and Valium patient reported he has taken some other type of muscle relaxer had extensive discussion with him that he should discontinue this other muscle relaxer and should not combine the 2 and should not use any drugs or alcohol while using Valium patient agrees to this and accepts all responsibility to occlude any adverse effects such as respiratory arrest. Departure - Departure Disposition: 01 Home, Self Care Clinical Impression: Cervical radiculopathy Condition: Stable Instructions: ED Cervical Radiculopathy Follow-Up: JAZMYN MARTÍNEZ MD [Primary Care Provider] - Prescriptions: predniSONE [Prednisone] 50 mg PO DAILY 5 Days #5 tablet diazePAM [Valium] 5 mg PO BID PRN #5 tablet PRN Reason: Spasms Comments: Follow-up with your primary care provider on Friday. Take prednisone as directed for the next 5 days. Take Valium as needed over the next 1 to 2 days. Discharge Date/Time: 07/16/20 06:03
[2020-07-16] MEDS ORDERED: diazePAM 5 MG TABLET PO STA (05:44)
[2020-07-16] MEDS ORDERED: predniSONE 20 MG TABLET PO STA (05:44)
[2020-07-16 06:03] VITALS: BP 136/88
== END 2020-07-16 06:03 | disposition home or self-care (01) ==
LOC: ED 05:11
DX: M54.12 Radiculopathy, cervical region (principal); M62.838 Other muscle spasm; I10 Essential (primary) hypertension; F17.200 Nicotine dependence, unspecified, uncomplicated
CPT/HCPCS: 99282; 99284; A9270; J7512

== ENCOUNTER 2020-09-09 22:57 | Emergency (ER) | payer MEDICAID ==
[2020-09-09 23:05] VITALS: BP 147/104
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
[2020-09-09] MEDS ORDERED: HYDROcod/ACETAM 5/325 MG TABLET PO STA (23:55)
== END 2020-09-10 00:03 | disposition home or self-care (01) ==
LOC: ED 22:57
DX: M54.12 Radiculopathy, cervical region (principal); M54.2 Cervicalgia; G89.29 Other chronic pain; I10 Essential (primary) hypertension; F17.200 Nicotine dependence, unspecified, uncomplicated
CPT/HCPCS: 99282; 99283; A9270

== ENCOUNTER 2020-12-14 20:39 | Emergency (ER) | payer MEDICAID ==
[2020-12-14 20:58] VITALS: BP 138/84
[2020-12-14] MEDS ORDERED: KETOROLAC 60 MG/2 ML VIAL IM STA (21:31)
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
--- NOTE | 2020-12-14 22:10 | XRAY Report ---
PROCEDURE: Ankle 3 View LT INDICATIONS: Trauma TECHNIQUE: 3 views of the ankle were acquired. COMPARISON: None FINDINGS: Bones: No fractures or dislocations. Ankle mortise is normally aligned. No suspicious bony lesions . Calcaneal bone spurs. Soft tissues: No tibiotalar joint effusion. Achilles tendon appears normal. Lateral soft tissue swe lling noted and ligamentous injury cannot be excluded. IMPRESSION: No fracture. No osseous lesion. If there are persistent symptoms or continued clinical concern for pa thology, then repeat plain film radiographs (7-10 days) or advanced imaging (CT, MR, bone scan) shoul d be considered for further evaluation. Reviewed by: Ivelisse Hernandez MD, PhD on 12/14/2020 10:08 PM PST Approved by: Ivelisse Hernandez MD, PhD on 12/14/2020 10:08 PM PST Station ID: [id number]
--- NOTE | 2020-12-14 22:12 | XRAY Report ---
PROCEDURE: Foot 3 View LT INDICATIONS: Trauma TECHNIQUE: 3 views of the foot were acquired. COMPARISON: None FINDINGS: Bones: No fractures or dislocations. No suspicious bony lesions. Soft tissues: No tibiotalar joint effusion. Achilles tendon appears normal. IMPRESSION: No fracture. No acute osseous lesion. If there are persistent symptoms or continued clinical concern for pathology, then repeat plain film radiographs (7-10 days) or advanced imaging (CT, MR, bone scan) should be considered for further evaluation. Reviewed by: Ivelisse Hernandez MD, PhD on 12/14/2020 10:11 PM [facility] Approved by: Ivelisse Hernandez MD, PhD on 12/14/2020 10:11 PM [facility] Station ID: [id number]
== END 2020-12-14 22:23 | disposition home or self-care (01) ==
LOC: ED 20:39
DX: M25.572 Pain in left ankle and joints of left foot (principal); F17.200 Nicotine dependence, unspecified, uncomplicated
CPT/HCPCS: 96372; 99281; 99284

== ENCOUNTER 2020-12-26 00:24 | Emergency (ER) | payer MEDICAID ==
[2020-12-26 01:31] LABS: BILIRUBIN,URINE NEGATIVE (NEGATIVE); GLUCOSE, URINE (UA) NEGATIVE (NEGATIVE); KETONES,URINE (UA) NEGATIVE (NEGATIVE); LEUKOCYTE ESTERASE, URINE NEGATIVE (NEGATIVE); MUDS CUTOFF CONCENTRATIONS CUTOFF CONC BELOW:; NITRITE,URINE NEGATIVE (NEGATIVE); OCCULT BLOOD,URINE TRACE-LYSE (NEGATIVE); PROTEIN,URINE NEGATIVE (NEGATIVE); UROBILINOGEN,URINE 0.2 (NORMAL) E.U./dL (NORMAL)
[2020-12-26 01:33] LABS: CLARITY,URINE CLEAR (CLEAR)
[2020-12-26 01:36] LABS: BASOPHILS % (AUTO) 0.3 %; EOSINOPHILS # (AUTO) 0.1 10^3/uL (0.0-0.7); EOSINOPHILS % (AUTO) 0.6 %; HGB - HEMOGLOBIN 15.2 g/dL (14.0-18.0); LYMPHOCYTES # (AUTO) 2.8 10^3/uL (1.5-3.5); LYMPHOCYTES % (AUTO) 27.2 %; MEAN CORPUSCULAR HEMOGLOBIN 31.3 pg (27.0-31.0); MEAN CORPUSCULAR HGB CONC 34.1 g/dL (32.0-36.0); MEAN PLATELET VOLUME 7.8 fL (7.4-11.4); MONOCYTES # (AUTO) 0.8 10^3/uL (0.0-1.0); MONOCYTES % (AUTO) 7.5 %; NEUTROPHILS # (AUTO) 6.6 10^3/uL (1.5-6.6); NEUTROPHILS % (AUTO) 64.3 %; PLT - PLATELET COUNT 467 10^3/uL (130-450); RED BLOOD COUNT 4.85 10^6/uL (4.70-6.10); RED CELL DISTRIBUTION WIDTH 13.6 % (12.0-15.0); WHITE BLOOD COUNT 10.2 x10^3/uL (4.8-10.8)
[2020-12-26 01:42] LABS: AMPHETAMINE SCREEN,URINE POSITIVE (NEGATIVE); BENZODIAZEPINES SCREEN, URINE NEGATIVE (NEGATIVE); COCAINE SCREEN URINE NEGATIVE (NEGATIVE); METHADONE SCREEN, URINE NEGATIVE (NEGATIVE); METHAMPHETAMINES SCREEN, URINE POSITIVE (NEGATIVE); OPIATE SCREEN, URINE NEGATIVE (NEGATIVE); OXYCODONE SCREEN, URINE NEGATIVE (NEGATIVE); PROPOXYPHENE SCREEN, URINE NEGATIVE (NEGATIVE); TRICYCLIC ANTIDEPRESSANT,URINE NEGATIVE (NEGATIVE)
[2020-12-26 01:54] LABS: ACETAMINOPHEN < 10 ug/mL (10-30); ALBUMIN 4.9 g/dL (3.2-5.5); ALBUMIN/GLOBULIN RATIO 1.6 (1.0-2.2); ALKALINE PHOSPHATASE 77 IU/L (42-121); ALT ALANINE AMINOTRANSFERASE 17 IU/L (10-60); AST ASPARTATE AMINOTRANSFERASE 26 IU/L (10-42); BILIRUBIN,TOTAL 0.8 mg/dL (0.2-1.0); BUN - BLOOD UREA NITROGEN 9 mg/dL (6-20); CALCIUM 9.7 mg/dL (8.5-10.3); CARBON DIOXIDE - CO2 24 mmol/L (21-32); CHLORIDE 100 mmol/L (101-111); CREATININE 0.8 mg/dL (0.6-1.2); GLUCOSE 113 mg/dL (70-100); LIPASE 33 U/L (22-51); SALICYLATE < 6.0 mg/dL
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
[2020-12-26 02:42] VITALS: BP 198/114
== END 2020-12-26 02:47 | disposition home or self-care (01) ==
LOC: ED 00:24
DX: F15.10 Other stimulant abuse, uncomplicated (principal); F12.10 Cannabis abuse, uncomplicated; F10.10 Alcohol abuse, uncomplicated; F20.9 Schizophrenia, unspecified; M79.672 Pain in left foot; F17.200 Nicotine dependence, unspecified, uncomplicated
CPT/HCPCS: 36415; 80053; 80306; 80307; 80320; 80329; 81001; 81003; 83690; 84443; 85025; 87086; 93005; 99281; 99283

== ENCOUNTER 2021-04-27 08:00 | Outpatient (CLI) | payer MEDICAID ==
[2021-04-27 17:53] LABS: BASOPHILS # (AUTO) 0.1 10^3/uL (0.0-0.1); BASOPHILS % (AUTO) 1.1 %; EOSINOPHILS # (AUTO) 0.1 10^3/uL (0.0-0.7); EOSINOPHILS % (AUTO) 1.8 %; HCT - HEMATOCRIT 44.1 % (42.0-52.0); HGB - HEMOGLOBIN 14.4 g/dL (14.0-18.0); LYMPHOCYTES # (AUTO) 1.6 10^3/uL (1.5-3.5); LYMPHOCYTES % (AUTO) 28.8 %; MEAN CORPUSCULAR HEMOGLOBIN 30.8 pg (27.0-31.0); MEAN CORPUSCULAR HGB CONC 32.7 g/dL (32.0-36.0); MEAN CORPUSCULAR VOLUME 94.2 fL (80.0-94.0); MEAN PLATELET VOLUME 8.8 fL (7.4-11.4); MONOCYTES # (AUTO) 0.4 10^3/uL (0.0-1.0); MONOCYTES % (AUTO) 7.7 %; NEUTROPHILS # (AUTO) 3.3 10^3/uL (1.5-6.6); NEUTROPHILS % (AUTO) 60.4 %; PLT - PLATELET COUNT 334 10^3/uL (130-450); RED BLOOD COUNT 4.68 10^6/uL (4.70-6.10); RED CELL DISTRIBUTION WIDTH 13.3 % (12.0-15.0); WHITE BLOOD COUNT 5.4 x10^3/uL (4.8-10.8)
[2021-04-27 18:10] LABS: ALBUMIN 4.2 g/dL (3.2-5.5); ALBUMIN/GLOBULIN RATIO 1.5 (1.0-2.2); ALKALINE PHOSPHATASE 62 IU/L (42-121); ALT ALANINE AMINOTRANSFERASE 24 IU/L (10-60); AST ASPARTATE AMINOTRANSFERASE 23 IU/L (10-42); BILIRUBIN,TOTAL 0.8 mg/dL (0.2-1.0); BUN - BLOOD UREA NITROGEN 13 mg/dL (6-20); CALCIUM 9.3 mg/dL (8.5-10.3); CARBON DIOXIDE - CO2 26 mmol/L (21-32); CHLORIDE 104 mmol/L (101-111); CHOL/HDL RATIO 4.1 (<5.0); CHOLESTEROL 205 mg/dL; CREATININE 0.8 mg/dL (0.6-1.2); GFR - MDRD 101 (>89); GLUCOSE 99 mg/dL (70-100); HDL CHOLESTEROL 50 mg/dL; LDL CHOLESTEROL,CALCULATED 131 mg/dL; LDL/HDL RATIO 2.6 (<3.6); POTASSIUM 4.1 mmol/L (3.5-5.0); SODIUM 137 mmol/L (135-145); TRIGLYCERIDES 118 mg/dL; VLDL CHOLESTEROL 24 mg/dL
[2021-04-27 18:19] LABS: THYROID STIMULATING HORMONE 1.12 uIU/mL (0.34-5.60)
== END 2021-04-27 23:59 | disposition home or self-care (01) ==
LOC: LAB.WCP 08:00
PROVIDERS: ATTEND Nurse Practitioner Family
DX: I10 Essential (primary) hypertension (principal); F15.21 Other stimulant dependence, in remission; R55 Syncope and collapse
CPT/HCPCS: 36415; 80053; 80061; 80307; 81599; 83721; 84443; 85025

== ENCOUNTER 2021-05-11 02:50 | Outpatient (CLI) | payer MEDICAID | END 2021-05-11 02:51 | disposition critical access hospital (66) | LOC: EMS 02:50 | DX: H93.13 Tinnitus, bilateral (principal); R20.2 Paresthesia of skin; R42 Dizziness and giddiness; H53.8 Other visual disturbances | CPT/HCPCS: A0425; A0429; A0999 ==

== ENCOUNTER 2021-05-11 03:05 | Emergency (ER) | payer MEDICAID ==
[2021-05-11] MEDS ORDERED: SODIUM CHLORIDE 0.9% 1,000 ML IV STA (03:19)
[2021-05-11] MEDS ORDERED: LORazepam 2 MG/ML VIAL IVP STA (03:20)
[2021-05-11 03:44] LABS: BASOPHILS # (AUTO) 0.1 10^3/uL (0.0-0.1); BASOPHILS % (AUTO) 1.1 %; EOSINOPHILS # (AUTO) 0.1 10^3/uL (0.0-0.7); HCT - HEMATOCRIT 41.9 % (42.0-52.0); HGB - HEMOGLOBIN 14.3 g/dL (14.0-18.0); LYMPHOCYTES # (AUTO) 2.4 10^3/uL (1.5-3.5); LYMPHOCYTES % (AUTO) 36.8 %; MEAN CORPUSCULAR HEMOGLOBIN 31.4 pg (27.0-31.0); MEAN CORPUSCULAR HGB CONC 34.1 g/dL (32.0-36.0); MEAN CORPUSCULAR VOLUME 91.9 fL (80.0-94.0); MEAN PLATELET VOLUME 8.4 fL (7.4-11.4); MONOCYTES # (AUTO) 0.6 10^3/uL (0.0-1.0); MONOCYTES % (AUTO) 9.1 %; NEUTROPHILS # (AUTO) 3.3 10^3/uL (1.5-6.6); NEUTROPHILS % (AUTO) 50.8 %; PLT - PLATELET COUNT 369 10^3/uL (130-450); RED BLOOD COUNT 4.56 10^6/uL (4.70-6.10); RED CELL DISTRIBUTION WIDTH 13.5 % (12.0-15.0); WHITE BLOOD COUNT 6.6 x10^3/uL (4.8-10.8)
--- NOTE | 2021-05-11 03:56 | ED Physician Documentation ---
History of Present Illness - Stated complaint Stated Complaint: dizzy - Chief complaint Chief Complaint: Neuro - Additonal information Additional information: Patient comes emergency department via EMS with chief complaint of dizziness and head pressure. Patient states that he always stays up very late at night and usually goes to bed around 3:00 in the morning. He was eating and had a single alcoholic drink which she states he did not finish, as well as a little marijuana. Patient states that none of these things are unusual for him, but that suddenly, he began to feel lightheaded and developed a buzzing sound in both of his ears. He states his head felt a pressure sensation. No chest pain or shortness of breath. No nausea or vomiting. Patient states he had a syncopal episode last week at home, and followed with his primary care physician about this. He states that his PCP did laboratory studies and that patient is scheduled to wear an event monitor for further evaluation of this. Patient states he also has a history of fainting previously several years ago. The patient has history of cardiac work-up including a stress test within the last couple of years that was negative. States he took his blood pressure at home when the symptoms first started and found to be 157/101. Patient was found to have a better blood pressure en route per medics, at 130s/80's. Patient states he takes losartan and has not had any recent dose changes. Patient denies any focal neurologic deficits. No other complaints at this time. Review of Systems Ten Systems: 10 systems reviewed and negative Constitutional: reports: Reviewed and negative Eyes: reports: Reviewed and negative Ears: reports: Reviewed and negative Nose: reports: Reviewed and negative Throat: reports: Reviewed and negative Cardiac: denies: Chest pain / pressure, Palpitations, Pedal edema Respiratory: reports: Reviewed and negative. denies: Dyspnea GI: reports: Reviewed and negative : reports: Reviewed and negative Skin: reports: Reviewed and negative Musculoskeletal: reports: Reviewed and negative Neurologic: reports: Reviewed and negative Psychiatric: reports: Reviewed and negative Endocrine: reports: Reviewed and negative Immunocompromised: reports: Reviewed and negative PD PAST MEDICAL HISTORY - Past Medical History Past Medical History: Yes Cardiovascular: Hypertension, High cholesterol Respiratory: None, COPD Neuro: None, Headaches Endocrine/Autoimmune: None GI: Chronic diarrhea, Other Psych: Depression, Anxiety, Bipolar disorder, ADD/ADHD, Other Musculoskeletal: Chronic back pain - Past Surgical History Past Surgical History: No - Present Medications Home Medications: Ambulatory Orders Medication Instructions Recorded Confirmed Losartan Potassium 100 mg PO DAILY 09/14/19 05/11/21 Aspirin [Aspirin EC] 81 mg PO DAILY 12/26/20 05/11/21 Naltrexone HCl 50 mg PO DAILY 05/11/21 05/11/21 QUEtiapine [SEROquel] 100 mg PO DAILY 05/11/21 05/11/21 - Allergies Allergies/Adverse Reactions: Allergies Allergy/AdvReac Type Severity Reaction Status Date / Time codeine AdvReac Cramps Verified 12/26/20 01:36 - Social History Does the pt smoke?: Yes Smoking Status: Current every day smoker Does the pt drink ETOH?: Yes Does the pt have substance abuse?: No Substance Use and Type: Marijuana - Immunizations Immunizations are current?: Yes - POLST Patient has POLST: No POLST Status: Full Code PD ED PE NORMAL - Vitals Vital signs reviewed: Yes - General General: Alert and oriented X 3, Well developed/nourished, Other (Patient is alert and talkative; mildly anxious, otherwise in no apparent distress.) - HEENT HEENT: Atraumatic, PERRL, EOMI, Moist mucous membranes - Neck Neck: Supple, no meningeal sign - Cardiac Cardiac: RRR, No murmur, Strong equal pulses - Respiratory Respiratory: No respiratory distress, Clear bilaterally - Abdomen Abdomen: Soft, Non tender, Non distended - Derm Derm: Normal color, Warm and dry, No rash - Extremities Extremities: No deformity, No edema, No calf tenderness / cord - Neuro Neuro: Alert and oriented X 3 - Psych Psych: Normal affect, Other (Appears mildly anxious.) Results - Vitals Vitals: Vital Signs - 24 hr 05/11/21 05/11/21 03:10 03:15 Temperature 36.2 C L 36.2 C L Heart Rate 103 H 103 H Respiratory 24 24 Rate Blood Pressure 132/89 H 132/89 H O2 Saturation 97 97 Oxygen O2 Source Room air - EKG (time done) 0327 Rate: Rate (enter#) (96) Rhythm: NSR [place]: Normal Intervals: Normal AR QRS: Normal Ischemia: Normal ST segments. No: T wave inversion Compare to prior EKG: Old EKG unavailable Computer interpretation: Agree with computer - Labs Labs: Laboratory Tests 0605/11/21 05/11/21 03:34 03:34 03:34 WBC 6.6 RBC 4.56 L Hgb 14.3 Hct 41.9 L MCV 91.9 MCH 31.4 H MCHC 34.1 RDW 13.5 Plt Count 369 MPV 8.4 Neut # (Auto) 3.3 Lymph # (Auto) 2.4 [facility] # (Auto) 0.6 Eos # (Auto) 0.1 Baso # (Auto) 0.1 Absolute Nucleated RBC 0.00 Nucleated RBC % 0.0 Sodium 139 Potassium 3.5 Chloride 103 Carbon Dioxide 26 Anion Gap 10.0 BUN 21 H Creatinine 1.1 Estimated GFR (MDRD) 70 L Glucose 98 Calcium 9.9 Total Bilirubin 0.7 AST 23 ALT 20 Alkaline Phosphatase 63 Troponin I High Sens 6.8 Total Protein 7.5 Albumin 4.4 Globulin 3.1 Albumin/Globulin Ratio 1.4 Lipase 28 PD MEDICAL DECISION MAKING - ED course Complexity details: reviewed results, re-evaluated patient, considered differential, d/w patient ED course: The patient was worked up with labs, as well as EKG, all of which were unremarkable. The patient was treated with a liter of 0.9 normal saline, as well as a dose of Ativan. He was found to be feeling quite a bit better after this. I discussed his work-up was unremarkable and that what he really needs to do is get the event monitoring done to see what is happening with his heart during these episodes. I have advised him to get plenty of rest and plenty of fluids, and to follow-up with his primary care physician as soon as possible. We have also discussed the usual indications for return to the emergency department. Departure - Departure Disposition: 01 Home, Self Care Clinical Impression: Dizziness, Anxiety Hypertension Qualifiers: Hypertension type: essential hypertension Qualified Code(s): I10 - Essential (primary) hypertension Condition: Stable Instructions: ED Dizziness UKO, Anxiety Disorder Comments: All of your labs and EKG look very good. Your blood pressure has been normal here, but it sounds like it did go up somewhat at home in association with your symptoms. You have also had alcohol and marijuana tonight, which has undoubtedly placed some stress on your body. It is very important that you follow-up with your doctor to get set up for the event monitor, as this will be most helpful in sorting your symptoms out. Please be sure to get plenty of water and try to get to bed earlier to get the highest quality sleep and reduce physical stress. Please talk to your doctor about getting help quitting smoking and drinking.
[2021-05-11 04:03] LABS: ALBUMIN 4.4 g/dL (3.2-5.5); ALBUMIN/GLOBULIN RATIO 1.4 (1.0-2.2); BILIRUBIN,TOTAL 0.7 mg/dL (0.2-1.0); CREATININE 1.1 mg/dL (0.6-1.2); TOTAL PROTEIN 7.5 g/dL (6.7-8.2)
[2021-05-11 04:22] LABS: CALCIUM 9.9 mg/dL (8.5-10.3); POTASSIUM 3.5 mmol/L (3.5-5.0)
[2021-05-11 04:32] VITALS: BP 123/76
== END 2021-05-11 04:45 | disposition home or self-care (01) ==
LOC: EDUNIT# → ED 03:05
DX: R42 Dizziness and giddiness (principal); F41.9 Anxiety disorder, unspecified; I10 Essential (primary) hypertension; F12.90 Cannabis use, unspecified, uncomplicated; F17.200 Nicotine dependence, unspecified, uncomplicated; Z79.82 Long term (current) use of aspirin
CPT/HCPCS: 36415; 80053; 83690; 84484; 85025; 93005; 96374; 99284; J2060

== ENCOUNTER 2021-05-17 23:26 | Outpatient (CLI) | payer MEDICAID | END 2021-05-17 23:27 | disposition critical access hospital (66) | LOC: EMS 23:26 | DX: R55 Syncope and collapse (principal) | CPT/HCPCS: A0425; A0429; A0999 ==

== ENCOUNTER 2021-05-17 23:46 | Emergency (ER) | payer MEDICAID ==
[2021-05-17] MEDS ORDERED: SODIUM CHLORIDE 0.9% 1,000 ML IV STA (23:55)
[2021-05-18 00:38] LABS: BASOPHILS # (AUTO) 0.1 10^3/uL (0.0-0.1); BASOPHILS % (AUTO) 0.7 %; EOSINOPHILS # (AUTO) 0.1 10^3/uL (0.0-0.7); EOSINOPHILS % (AUTO) 0.8 %; HCT - HEMATOCRIT 44.9 % (42.0-52.0); HGB - HEMOGLOBIN 14.9 g/dL (14.0-18.0); LYMPHOCYTES # (AUTO) 2.2 10^3/uL (1.5-3.5); LYMPHOCYTES % (AUTO) 20.2 %; MEAN CORPUSCULAR HEMOGLOBIN 30.8 pg (27.0-31.0); MEAN CORPUSCULAR HGB CONC 33.2 g/dL (32.0-36.0); MONOCYTES # (AUTO) 0.8 10^3/uL (0.0-1.0); MONOCYTES % (AUTO) 7.3 %; NEUTROPHILS # (AUTO) 7.6 10^3/uL (1.5-6.6); NEUTROPHILS % (AUTO) 70.7 %; PLT - PLATELET COUNT 400 10^3/uL (130-450); RED BLOOD COUNT 4.83 10^6/uL (4.70-6.10); RED CELL DISTRIBUTION WIDTH 13.4 % (12.0-15.0); WHITE BLOOD COUNT 10.7 x10^3/uL (4.8-10.8)
[2021-05-18 00:51] LABS: ALBUMIN 4.2 g/dL (3.2-5.5); ALBUMIN/GLOBULIN RATIO 1.4 (1.0-2.2); BILIRUBIN,TOTAL 0.9 mg/dL (0.2-1.0); CALCIUM 9.7 mg/dL (8.5-10.3); POTASSIUM 3.7 mmol/L (3.5-5.0); TOTAL PROTEIN 7.2 g/dL (6.7-8.2)
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
[2021-05-18 03:13] VITALS: BP 138/94
[2021-05-18] MEDS ORDERED: MIDAZOLAM 10 MG/5 ML UDC PO STA (04:32)
[2021-05-18] MEDS ORDERED: LORazepam 2 MG/ML VIAL IM STA (04:39)
[2021-05-18] MEDS ORDERED: HALOPERIDOL 5 MG/ML VIAL IM STA (04:39)
--- NOTE | 2021-05-18 08:45 | XRAY Report ---
PROCEDURE: Chest 1 View X-Ray INDICATIONS: Chest Pain TECHNIQUE: One view of the chest was acquired. COMPARISON: FINDINGS: Surgical changes and devices: None. Lungs and pleura: No pleural effusions or pneumothorax. Lungs are clear except for a slight interst itial prominence which may reflect prior smoking. Mediastinum: Mediastinal contours appear normal. Heart size is normal. Bones and chest wall: No suspicious bony lesions. Overlying soft tissues appear unremarkable. IMPRESSION: Source of chest pain is not found. Slight interstitial prominence may reflect prior smoking history. Reviewed by: Tremaine Kaiser MD on 05/18/2021 8:44 AM PDT Approved by: Tremaine Kaiser MD on 05/18/2021 8:44 AM PDT Station ID: [id number]
== END 2021-05-18 04:45 | disposition left against medical advice (07) ==
LOC: EDUNIT# → ED 23:46
DX: R55 Syncope and collapse (principal); F19.10 Other psychoactive substance abuse, uncomplicated; I10 Essential (primary) hypertension; F17.200 Nicotine dependence, unspecified, uncomplicated
CPT/HCPCS: 36415; 80053; 80320; 83690; 84484; 85025; 93005; 96360; 99281

== ENCOUNTER 2021-05-18 04:02 | Outpatient (CLI) | payer MEDICAID | END 2021-05-18 04:03 | disposition home or self-care (01) | LOC: EMS 04:02 | DX: R46.89 Other symptoms and signs involving appearance and behavior (principal) ==

== ENCOUNTER 2021-05-19 14:38 | Outpatient (CLI) | payer MEDICAID | END 2021-05-19 14:39 | disposition EMS.NT | LOC: EMS 14:38 | DX: R45.89 Other symptoms and signs involving emotional state (principal) ==

== ENCOUNTER 2021-07-05 17:00 | Outpatient (CLI) | payer MEDICAID | END 2021-07-05 17:01 | disposition EMS.NT | LOC: EMS 17:00 | DX: R56.9 Unspecified convulsions (principal) ==

== ENCOUNTER 2021-10-25 14:38 | Outpatient (CLI) | payer OTHER, MEDICAID | END 2021-10-25 14:39 | disposition home or self-care (01) | LOC: LAB 14:38 | PROVIDERS: ATTEND Pathology Blood Banking & Transfusion Medicine | DX: Z01.89 Encounter for other specified special examinations (principal) | CPT/HCPCS: 36415 ==

== ENCOUNTER 2021-12-19 08:52 | Outpatient (CLI) | payer MEDICAID ==
[2021-12-19 12:45] LABS: BASOPHILS # (AUTO) 0.1 10^3/uL (0.0-0.1); BASOPHILS % (AUTO) 0.8 %; EOSINOPHILS # (AUTO) 0.2 10^3/uL (0.0-0.7); HCT - HEMATOCRIT 39.7 % (42.0-52.0); HGB - HEMOGLOBIN 13.2 g/dL (14.0-18.0); LYMPHOCYTES % (AUTO) 33.1 %; MEAN CORPUSCULAR HEMOGLOBIN 31.1 pg (27.0-31.0); MEAN CORPUSCULAR HGB CONC 33.2 g/dL (32.0-36.0); MEAN CORPUSCULAR VOLUME 93.4 fL (80.0-94.0); MEAN PLATELET VOLUME 9.3 fL (7.4-11.4); MONOCYTES # (AUTO) 0.5 10^3/uL (0.0-1.0); MONOCYTES % (AUTO) 8.4 %; NEUTROPHILS # (AUTO) 3.3 10^3/uL (1.5-6.6); NEUTROPHILS % (AUTO) 54.5 %; PLT - PLATELET COUNT 291 10^3/uL (130-450); RED BLOOD COUNT 4.25 10^6/uL (4.70-6.10); RED CELL DISTRIBUTION WIDTH 13.8 % (12.0-15.0)
[2021-12-19 13:02] LABS: ALBUMIN 4.1 g/dL (3.2-5.5); ALBUMIN/GLOBULIN RATIO 1.4 (1.0-2.2); ALKALINE PHOSPHATASE 59 IU/L (42-121); ALT ALANINE AMINOTRANSFERASE 21 IU/L (10-60); AST ASPARTATE AMINOTRANSFERASE 25 IU/L (10-42); BILIRUBIN,TOTAL 0.6 mg/dL (0.2-1.0); BUN - BLOOD UREA NITROGEN 14 mg/dL (6-20); CALCIUM 9.4 mg/dL (8.5-10.3); CARBON DIOXIDE - CO2 26 mmol/L (21-32); CHLORIDE 101 mmol/L (101-111); CHOLESTEROL 230 mg/dL; CREATININE 1.1 mg/dL (0.6-1.2); GFR - MDRD 69 (>89); GLUCOSE 94 mg/dL (70-100); HDL CHOLESTEROL 58 mg/dL; LDL CHOLESTEROL,CALCULATED 149 mg/dL; LDL/HDL RATIO 2.6 (<3.6); POTASSIUM 3.9 mmol/L (3.5-5.0); SODIUM 136 mmol/L (135-145); TRIGLYCERIDES 115 mg/dL; VLDL CHOLESTEROL 23 mg/dL
== END 2021-12-19 23:59 | disposition home or self-care (01) ==
LOC: LAB.WCP 08:52
PROVIDERS: ATTEND Nurse Practitioner
DX: I10 Essential (primary) hypertension (principal); Z13.220 Encounter for screening for lipoid disorders; Z12.5 Encounter for screening for malignant neoplasm of prostate
CPT/HCPCS: 36415; 80053; 80061; 83721; 84153; 85025

== ENCOUNTER 2022-03-13 13:38 | Outpatient (CLI) | payer MEDICAID ==
--- NOTE | 2022-03-13 17:18 | XRAY Report ---
PROCEDURE: Shoulder 3 View RT INDICATIONS: NONTRAUMATIC RUPTURE OF R BICEPS BRACHII TENDON TECHNIQUE: 3 views of the shoulder were acquired. COMPARISON: None. FINDINGS: Bones: No acute fractures or dislocations. Old healed clavicular shaft fracture. No suspicious bony lesions. Mild degenerative joint disease in acromioclavicular joint and glenohumeral joint. A small sclerotic focus in humeral head is most likely a bone island. Superior migration of humeral head sugg ests rotator cuff tendinopathy. Visualized ribs appear intact. Soft tissues: No suspicious soft tissue calcifications. IMPRESSION: 1. Mild degenerative joint disease. 2. Suspect rotator cuff tendinopathy. 3. Old healed clavicular shaft fracture. 4. A small bone island in humeral head. Reviewed by: Prince Saxena MD on 03/13/2022 5:17 PM PDT Approved by: Prince Saxena MD on 03/13/2022 5:17 PM PDT Station ID: [id number]
== END 2022-03-13 13:39 | disposition home or self-care (01) ==
LOC: DI.N 13:38
PROVIDERS: ATTEND Nurse Practitioner
DX: M66.821 Spontaneous rupture of other tendons, right upper arm (principal); M25.511 Pain in right shoulder

== ENCOUNTER 2022-04-21 16:30 | Emergency (ER) | payer MEDICAID ==
[2022-04-21 17:05] LABS: BASOPHILS # (AUTO) 0.1 10^3/uL (0.0-0.1); BASOPHILS % (AUTO) 0.9 %; EOSINOPHILS # (AUTO) 0.2 10^3/uL (0.0-0.7); EOSINOPHILS % (AUTO) 2.6 %; HCT - HEMATOCRIT 42.2 % (42.0-52.0); HGB - HEMOGLOBIN 13.9 g/dL (14.0-18.0); LYMPHOCYTES # (AUTO) 1.6 10^3/uL (1.5-3.5); LYMPHOCYTES % (AUTO) 24.9 %; MEAN CORPUSCULAR HGB CONC 32.9 g/dL (32.0-36.0); MEAN CORPUSCULAR VOLUME 90.9 fL (80.0-94.0); MEAN PLATELET VOLUME 8.2 fL (7.4-11.4); MONOCYTES # (AUTO) 0.4 10^3/uL (0.0-1.0); MONOCYTES % (AUTO) 6.1 %; NEUTROPHILS # (AUTO) 4.3 10^3/uL (1.5-6.6); NEUTROPHILS % (AUTO) 65.3 %; PLT - PLATELET COUNT 356 10^3/uL (130-450); RED BLOOD COUNT 4.64 10^6/uL (4.70-6.10); RED CELL DISTRIBUTION WIDTH 13.4 % (12.0-15.0); WHITE BLOOD COUNT 6.5 x10^3/uL (4.8-10.8)
--- OUTSIDE RECORDS SUMMARY | 2022-04-21 17:12 | EXTERNAL MEDICAL SUMMARY RPT | Continuity of Care Document ---
:1965 Author Organization [facility] Address [address] [place] [address] Phone Care Team Providers Name Role Phone HolbrookDavonte butleramelia Lemons Unavailable Unavailable Allergies No information. Encounters No information. Medications date description facility 20220420 Lactulose 667 MG/ML Oral Solution [facility] Problems Procedures date description facility [id number] [facility] [id number] [facility] Results No information. Vital Signs date measurement value source 20220414 weight_standard 99.79 lb 20220414 weight_metric 45.26 kg 20220414 temperature_standard 98.2 F 20220414 temperature_metric 36.78 C 20220414 respiration_rate 22 /min 20220414 heart_rate 94 /min 20220414 BP_systolic 145 mm[Hg] 20220414 BP_diastolic 91 mm[Hg] 20220420 weight_standard 90.72 lb 20220420 weight_metric 41.15 kg 20220420 temperature_standard 96.7 F 20220420 temperature_metric 35.94 C 20220420 respiration_rate 16 /min 20220420 height_standard 70 in 20220420 height_metric 177.8 cm 20220420 heart_rate 98 /min 20220420 BP_systolic 105 mm[Hg] 20220420 BP_diastolic 78 mm[Hg] 20220420 BMI 28.7 kg/m2
[2022-04-21 17:19] LABS: ALBUMIN 4.4 g/dL (3.2-5.5); ALBUMIN/GLOBULIN RATIO 1.4 (1.0-2.2); BILIRUBIN,TOTAL 0.6 mg/dL (0.2-1.0); CALCIUM 9.5 mg/dL (8.5-10.3); POTASSIUM 4.4 mmol/L (3.5-5.0); TOTAL PROTEIN 7.6 g/dL (6.7-8.2)
[2022-04-21] MEDS ORDERED: HYDROmorphone 1 MG/ML CARPUJECT IVP STA (18:52)
[2022-04-21] MEDS ORDERED: HYOSCYAMINE SL 0.125 MG TABLET SL STA (18:52)
[2022-04-21] MEDS ORDERED: IOVERSOL 320 100 ML VIAL IVP ONE ×2 (18:55→22:03)
[2022-04-21] MEDS ORDERED: IOPAMIDOL-300 50 ML VIAL ONE (19:00)
--- NOTE | 2022-04-21 20:23 | ED Physician Documentation ---
PD HPI ABD PAIN - Stated complaint Stated Complaint: CONSTIPATED X10 DAYS - Chief complaint Chief Complaint: Abd Pain - History obtained from History obtained from: Patient - History of Present Illness Timing - onset: How many days ago (10) Timing - duration: Days (10) Timing - details: Gradual onset Pain level max: 8 Quality: Cramping, Aching, Pain Location: All over / everywhere Associated symptoms: Nausea. No: Fever, Vomiting, Hematemesis, Diarrhea, Melena, Hematochezia, Dysuria, Hematuria - Additional information Additional information: 56-year-old male presents to the emergency department diffuse abdominal pain. This been ongoing for the past 10 days. He states he has not had a bowel movement in 10 days. He has been seen at [facility] in [place] [id number] for same. No cause found. Nothing seems to make it better or worse. Review of Systems Ten Systems: 10 systems reviewed and negative Constitutional: denies: Fever, Chills Nose: denies: Rhinorrhea / runny nose, Congestion Cardiac: denies: Chest pain / pressure, Palpitations Respiratory: denies: Dyspnea, Cough GI: reports: Nausea. denies: Vomiting, Diarrhea, Hematemesis, Bloody / black stool : denies: Dysuria, Frequency, Hesitancy Skin: denies: Rash Musculoskeletal: denies: Neck pain, Back pain Neurologic: denies: Headache PD PAST MEDICAL HISTORY - Past Medical History Past Medical History: Yes Cardiovascular: Hypertension, High cholesterol Respiratory: None, COPD Neuro: None, Headaches Endocrine/Autoimmune: None GI: Chronic diarrhea, Other Psych: Depression, Anxiety, Bipolar disorder, ADD/ADHD, Other Musculoskeletal: Chronic back pain - Past Surgical History Past Surgical History: Yes - Present Medications Home Medications: Ambulatory Orders Medication Instructions Recorded Confirmed Losartan Potassium 100 mg PO DAILY 09/14/19 04/21/22 Atorvastatin [Lipitor] 20 mg PO DAILY 04/21/22 04/21/22 Dicyclomine [Bentyl] 10 - 20 mg PO QID PRN #30 cap 04/21/22 Trazodone HCl 100 mg PO DAILY PM 04/21/22 04/21/22 lamoTRIgine [Lamictal] 25 mg PO DAILY 04/21/22 04/21/22 - Allergies Allergies/Adverse Reactions: Allergies Allergy/AdvReac Type Severity Reaction Status Date / Time codeine AdvReac Cramps Verified 04/21/22 16:43 - Social History Does the pt smoke?: Yes Smoking Status: Current every day smoker Does the pt drink ETOH?: Yes Does the pt have substance abuse?: Yes Substance Use and Type: Marijuana - Immunizations Immunizations are current?: Yes - POLST Patient has POLST: No POLST Status: Full Code PD ED PE NORMAL - Vitals Vital signs reviewed: Yes - General General: Alert and oriented X 3, No acute distress - HEENT HEENT: PERRL, Moist mucous membranes - Neck Neck: Supple, no meningeal sign - Cardiac Cardiac: RRR, Strong equal pulses - Respiratory Respiratory: No respiratory distress, Clear bilaterally - Abdomen Abdomen: Soft, Other (mild diffuse TTP, no peritoneal signs. mild distention. easily reducible ventral hernia) - Derm Derm: Warm and dry - Extremities Extremities: No calf tenderness / cord - Neuro Neuro: Alert and oriented X 3 - Psych Psych: Normal mood, Normal affect Results - Vitals Vitals: Vital Signs - 24 hr 04/21/22 04/21/22 04/21/22 16:41 19:15 21:00 Temperature 36.9 C Heart Rate 87 75 65 Respiratory 18 18 18 Rate Blood Pressure 121/81 H 142/83 H 147/86 H O2 Saturation 98 98 96 Oxygen O2 Source Room air - Labs Labs: Laboratory Tests 04/21/22 04/21/22 17:00 17:00 WBC 6.5 RBC 4.64 L Hgb 13.9 L Hct 42.2 MCV 90.9 MCH 30.0 MCHC 32.9 RDW 13.4 Plt Count 356 MPV 8.2 Neut # (Auto) 4.3 Lymph # (Auto) 1.6 [place] # (Auto) 0.4 Eos # (Auto) 0.2 Baso # (Auto) 0.1 Absolute Nucleated RBC 0.00 Nucleated RBC % 0.0 Sodium 140 Potassium 4.4 Chloride 105 Carbon Dioxide 26 Anion Gap 9.0 BUN 15 Creatinine 1.0 Estimated GFR (MDRD) 78 L Glucose 134 H Calcium 9.5 Total Bilirubin 0.6 AST 23 ALT 26 Alkaline Phosphatase 84 Total Protein 7.6 Albumin 4.4 Globulin 3.2 Albumin/Globulin Ratio 1.4 Lipase 27 - Rads (name of study) CT abd/pelvis Radiology: Final report received, EMP read contemporaneously, See rad report PD MEDICAL DECISION MAKING - ED course Complexity details: reviewed old records, reviewed results, re-evaluated patient, considered differential, d/w patient, d/w family ED course: 56-year-old male with abdominal pain. Possible ileus in the large bowel. The IV contrast appears to be traveling through the small intestine well. He also has 2 nonspecific peripherally enhancing loculated fluid collections in the left hepatic lobe and along the spleen. He will follow-up with his doctor for aspi ration versus biopsy. Patient is very well-appearing, nontoxic. Afebrile. No indication for antibiotics at this time. Pain well controlled. We will have him follow-up with his doctor for further care. Patient and family counseled regarding signs and symptoms for which I believe and urgent re-evaluation would be necessary. Patient with good understanding of and agreement to plan and is comfortable going home at this time This document was made in part using voice recognition software. While efforts are made to proofread this document, sound alike and grammatical errors may occur. IMPRESSION: 1. Loculated peripherally enhancing collections demonstrated within the left hepatic lobe and along the spleen. The findings are nonspecific but are suggestive of abscess collections. The differential includes necrotic neoplasms. Recommend correlation clinically and percutaneous aspiration or biopsy. 2. Short herniated segments of small bowel through 2 ventral abdominal hernias without definite associated small bowel obstruction or strangulation. 3. Scattered air-fluid levels throughout the small large bowel likely represent an ileus or gastroenteritis. No definite evidence of obstruction. Departure - Departure Disposition: 01 Home, Self Care Clinical Impression: Ileus, Abnormal liver CT Abdominal pain Qualifiers: Abdominal location: unspecified location Qualified Code(s): R10.9 - Unspecified abdominal pain Condition: Good Instructions: Ileus, ED Abdominal Pain Unkn Cause Male Follow-Up: Deja Brower ARNP [Primary Care Provider] - Within 1 week Prescriptions: Dicyclomine [Bentyl] 10 - 20 mg PO QID PRN #30 cap PRN Reason: Abdominal Pain Comments: Please follow-up with your doctor for further care. You have to collections in your liver and spleen that will need biopsy for further care. These could be masses, they could be an abscess or another etiology. Your doctor should arrange for a biopsy this week. Please return if you worsen. Your prescriptions were sent to [facility] in [place]. You do have evidence of an ileus in your colon. Recommend a liquid diet for a few days, increase walking and can try chewing gum as well. CT ABDOMEN and PELVIS FINDINGS: Image quality: Excellent. Lung bases: There is mild scarring or atelectasis in the lung bases. Heart: Heart is normal in size. ABDOMEN: Liver: There is a hypoattenuating collection with indistinct margins and peripheral enhancement in segments 4A and 4B of the left hepatic lobe. This measures approximately 5.1 x 4.9 cm in transverse dimension by 4.1 cm in craniocaudal dimension. Gallbladder: Within normal limits without calcified gallstones. Biliary ducts: No biliary ductal dilatation. Pancreas: Unremarkable. Spleen: There is a lateral perisplenic loculated peripherally enhancing collection measuring up to 5.2 x 3.0 x 6.5 cm. This extends through the abdominal wall laterally. Adrenal Glands: No adrenal nodules. Kidneys and Ureters: No hydronephrosis. There is an uncertain stone within the right kidney measuring up to 0.4 cm. Stomach and Bowel: Stomach and small bowel loops are normal in caliber and wall thickness. There are scattered air-fluid levels throughout the small bowel without abnormal dilatation or focal transition point. There are 2 herniated short segments of small bowel through ventral abdominal hernias without definite associated obstruction. No evidence of appendicitis. The colon demonstrates scattered air-fluid levels throughout extending to the rectosigmoid colon. Findings are suggestive of a gastroenteritis or ileus. No definite bowel obstruction. There is colonic diverticulosis without diverticulitis. Peritoneum: No abnormal intraperitoneal fluid. No free air. Ventral Wall: There are a few small ventral abdominal hernias including 2 small hernias containing short segments of herniated small bowel loops. No definite associated bowel obstruction or strangulation. Abdominal Nodes: No retroperitoneal or mesenteric adenopathy by size criteria. Vessels: Aorta and inferior vena cava are normal in size. PELVIS: Pelvic Organs: Unremarkable. Bladder: Unremarkable. Pelvic Nodes: No enlarged lymph nodes. Miscellaneous: There is a small fat-containing left inguinal hernia. Bones: Visualized osseous structures demonstrate no suspicious focal lesions. IMPRESSION: 1. Loculated peripherally enhancing collections demonstrated within the left hepatic lobe and along the spleen. The findings are nonspecific but are suggestive of abscess collections. The differential includes necrotic neoplasms. Recommend correlation clinically and percutaneous aspiration or biopsy. 2. Short herniated segments of small bowel through 2 ventral abdominal hernias without definite associated small bowel obstruction or strangulation. 3. Scattered air-fluid levels throughout the small large bowel likely represent an ileus or gastroenteritis. No definite evidence of obstruction. Discharge Date/Time: 04/21/22 21:22
--- NOTE | 2022-04-21 20:42 | CT Report ---
PROCEDURE: Abdomen/Pelvis W INDICATIONS: diffuse abd pain CONTRAST: IV CONTRAST: Optiray 320 ml: 100 PO CONTRAST: Optiray 320 ml50 TECHNIQUE: After the administration of intravenous contrast, 5 mm thick sections acquired from the diaphragms to the symphysis. 5 mm thick coronal and sagittal reformats were acquired. For radiation dose reducti on, the following was used: automated exposure control, adjustment of mA and/or kV according to suresh ent size. COMPARISON: 09/14/19. FINDINGS: Image quality: Excellent. Lung bases:There is mild scarring or atelectasis in the lung bases. Heart: Heart is normal in size. ABDOMEN: Liver:There is a hypoattenuating collection with indistinct margins and peripheral enhancement in se gments 4A and 4B of the left hepatic lobe. This measures approximately 5.1 x 4.9 cm in transverse dim ension by 4.1 cm in craniocaudal dimension. Gallbladder: Within normal limits without calcified gallstones. Biliary ducts: No biliary ductal dilatation. Pancreas: Unremarkable. Spleen:There is a lateral perisplenic loculated peripherally enhancing collection measuring up to 5. 2 x 3.0 x 6.5 cm. This extends through the abdominal wall laterally. Adrenal Glands: No adrenal nodules. Kidneys and Ureters: No hydronephrosis.There is an uncertain stone within the right kidney measurin g up to 0.4 cm. Stomach and Bowel: Stomach and small bowel loops are normal in caliber and wall thickness. There are scattered air-fluid levels throughout the small bowel without abnormal dilatation or focal transitio n point. There are 2 herniated short segments of small bowel through ventral abdominal hernias withou t definite associated obstruction. No evidence of appendicitis. The colon demonstrates scattered air- fluid levels throughout extending to the rectosigmoid colon. Findings are suggestive of a gastroenter itis or ileus. No definite bowel obstruction. There is colonic diverticulosis without diverticulitis. Peritoneum: No abnormal intraperitoneal fluid. No free air. Ventral Wall: There are a few small ventral abdominal hernias including 2 small hernias containing s hort segments of herniated small bowel loops. No definite associated bowel obstruction or strangulati on. Abdominal Nodes: No retroperitoneal or mesenteric adenopathy by size criteria. Vessels: Aorta and inferior vena cava are normal in size. PELVIS: Pelvic Organs: Unremarkable. Bladder: Unremarkable. Pelvic Nodes: No enlarged lymph nodes. Miscellaneous: There is a small fat-containing left inguinal hernia. Bones: Visualized osseous structures demonstrate no suspicious focal lesions. IMPRESSION: 1. Loculated peripherally enhancing collections demonstrated within the left hepatic lobe and along t he spleen. The findings are nonspecific but are suggestive of abscess collections. The differential i ncludes necrotic neoplasms. Recommend correlation clinically and percutaneous aspiration or biopsy. 2. Short herniated segments of small bowel through 2 ventral abdominal hernias without definite assoc iated small bowel obstruction or strangulation. 3. Scattered air-fluid levels throughout the small large bowel likely represent an ileus or gastroent eritis. No definite evidence of obstruction. Reviewed by: Tomas Lane MD on 04/21/2022 8:40 PM PDT Approved by: Tomas Lane MD on 04/21/2022 8:40 PM PDT Station ID: [id number]
[2022-04-21 21:22] VITALS: BP 147/86
== END 2022-04-21 21:22 | disposition home or self-care (01) ==
LOC: ED 16:30
DX: K56.7 Ileus, unspecified (principal); R93.2 Abnormal findings on diagnostic imaging of liver and biliary tract; R10.9 Unspecified abdominal pain; F17.200 Nicotine dependence, unspecified, uncomplicated
CPT/HCPCS: 36415; 74177; 80053; 83690; 85025; 96374; 99284; A9270; J1170; Q9967

== ENCOUNTER 2022-05-12 21:59 | Emergency (ER) | payer MEDICAID ==
[2022-05-12 23:04] LABS: BASOPHILS % (AUTO) 0.6 %; EOSINOPHILS # (AUTO) 0.2 10^3/uL (0.0-0.7); EOSINOPHILS % (AUTO) 2.7 %; HGB - HEMOGLOBIN 12.1 g/dL (14.0-18.0); LYMPHOCYTES # (AUTO) 1.6 10^3/uL (1.5-3.5); LYMPHOCYTES % (AUTO) 23.1 %; MEAN CORPUSCULAR HEMOGLOBIN 30.3 pg (27.0-31.0); MEAN CORPUSCULAR HGB CONC 33.6 g/dL (32.0-36.0); MONOCYTES # (AUTO) 0.4 10^3/uL (0.0-1.0); NEUTROPHILS # (AUTO) 4.8 10^3/uL (1.5-6.6); NEUTROPHILS % (AUTO) 67.5 %; PLT - PLATELET COUNT 367 10^3/uL (130-450); WHITE BLOOD COUNT 7.1 x10^3/uL (4.8-10.8)
[2022-05-12] MEDS ORDERED: MORPHINE 2 MG/ML CARPUJECT IVP STA (23:14)
[2022-05-12 23:17] LABS: ALBUMIN 4.1 g/dL (3.2-5.5); ALBUMIN/GLOBULIN RATIO 1.4 (1.0-2.2); BILIRUBIN,TOTAL 0.3 mg/dL (0.2-1.0); CALCIUM 9.4 mg/dL (8.5-10.3); CREATININE 0.9 mg/dL (0.6-1.2); POTASSIUM 4.1 mmol/L (3.5-5.0); TOTAL PROTEIN 7.1 g/dL (6.7-8.2)
[2022-05-12] MEDS ORDERED: ONDANSETRON 4 MG/2 ML VIAL IVP STA (23:17)
[2022-05-12] MEDS ORDERED: SODIUM CHLORIDE 0.9% 1,000 ML IV STA (23:26)
--- NOTE | 2022-05-12 23:26 | ED Physician Documentation ---
PD HPI ABD PAIN - Stated complaint Stated Complaint: BLOATED,CONSTIPATION - Chief complaint Chief Complaint: Abd Pain - Additional information Additional information: Patient is a 56-year-old male with a history of gastric perforation In 2019 status post laparotomy presenting for evaluation of generalized abdominal pain, constipation, bloating that has been ongoing for 5 weeks. Patient reports being seen at [facility] twice, once in our ED, [facility] and was admitted there for 3 days with GI consult, and [facility] last Friday for these episodes.While admitted at [facility] he was recommended to get a colonoscopy but left AMA prior to getting the test done after vomiting and not Getting assistance to clean himself up. When he was seen at the emergency department and at [facility] last Friday, he had labs and imaging done and received an enema with a bowel movement which did help his symptoms at that time. He was prescribed to use MiraLAX daily but did not start it due to cost. He has been trying fleets enemas at home without improvement.He reports being hungry but not eating very much.He denies fever, chest pain, difficulty breathing, nausea.He is awaiting a GI referral from his PCP. He denies dysuria or hematuria. Nothing makes his symptoms better or worse. Review of Systems Constitutional: denies: Fever Cardiac: denies: Chest pain / pressure Respiratory: denies: Dyspnea, Cough GI: reports: Abdominal Pain. denies: Vomiting, Diarrhea : denies: Dysuria Musculoskeletal: denies: Back pain Neurologic: denies: Headache PD PAST MEDICAL HISTORY - Past Medical History Cardiovascular: Hypertension, High cholesterol Respiratory: None, COPD Neuro: None, Headaches Endocrine/Autoimmune: None GI: Chronic diarrhea, Other Psych: Depression, Anxiety, Bipolar disorder, ADD/ADHD, Other Musculoskeletal: Chronic back pain - Past Surgical History Past Surgical History: Yes - Present Medications Home Medications: Ambulatory Orders Medication Instructions Recorded Confirmed Losartan Potassium 100 mg PO DAILY 09/14/19 04/21/22 Atorvastatin [Lipitor] 20 mg PO DAILY 04/21/22 04/21/22 Dicyclomine [Bentyl] 10 - 20 mg PO QID PRN #30 cap 04/21/22 Trazodone HCl 100 mg PO DAILY PM 04/21/22 04/21/22 lamoTRIgine [Lamictal] 25 mg PO DAILY 04/21/22 04/21/22 - Allergies Allergies/Adverse Reactions: Allergies Allergy/AdvReac Type Severity Reaction Status Date / Time codeine AdvReac Cramps Verified 05/12/22 22:10 - Social History Does the pt smoke?: Yes Smoking Status: Current every day smoker Does the pt drink ETOH?: Yes Does the pt have substance abuse?: Yes - Immunizations Immunizations are current?: Yes - POLST Patient has POLST: No POLST Status: Full Code PD ED PE NORMAL - General General: Alert and oriented X 3, No acute distress, Well developed/nourished - HEENT HEENT: Atraumatic - Neck Neck: Supple, no meningeal sign - Cardiac Cardiac: RRR, No murmur, Strong equal pulses - Respiratory Respiratory: No respiratory distress, Clear bilaterally - Abdomen Abdomen: Soft, Other (Well-healed midline abdominal incision, Reducible ventral wall hernia, no overlying erythema, hypoactive bowel sounds, generalized abdominal tenderness, protuberant abdomen, No rebound, no guarding). No: Non tender - Derm Derm: No rash - Extremities Extremities: No edema - Neuro Neuro: Normal speech - Psych Psych: Normal mood Results - Vitals Vitals: Vital Signs - 24 hr 05/12/22 05/13/22 05/13/22 22:03 01:00 01:13 Temperature 36.1 C L Heart Rate 96 92 Respiratory 18 18 Rate Blood Pressure 150/106 H 148/100 H 148/100 H O2 Saturation 98 98 Oxygen O2 Source Room air - Labs Labs: Laboratory Tests 05/12/22 05/12/22 23:00 23:00 WBC 7.1 RBC 4.00 L Hgb 12.1 L Hct 36.0 L MCV 90.0 MCH 30.3 MCHC 33.6 RDW 13.0 Plt Count 367 MPV 8.0 Neut # (Auto) 4.8 Lymph # (Auto) 1.6 [place] # (Auto) 0.4 Eos # (Auto) 0.2 Baso # (Auto) 0.0 Absolute Nucleated RBC 0.00 Nucleated RBC % 0.0 Sodium 138 Potassium 4.1 Chloride 102 Carbon Dioxide 27 Anion Gap 9.0 BUN 15 Creatinine 0.9 Estimated GFR (MDRD) 88 L Glucose 89 Calcium 9.4 Total Bilirubin 0.3 AST 28 ALT 36 Alkaline Phosphatase 83 Total Protein 7.1 Albumin 4.1 Globulin 3.0 Albumin/Globulin Ratio 1.4 Lipase 27 PD MEDICAL DECISION MAKING - ED course Complexity details: reviewed results, re-evaluated patient, d/w patient, d/w family ED course: .Patient with abdominal pain, bloating, decreased bowel movements. He has mild tenderness on exam but no rebound or guarding.Labs areWithout significant abnormality. A CT scan was done with oral contrast. Again seen are 2 fluid collections, one in the liver and one near the spleen. These were seen on previous CT scan A few weeks ago and he was advised to follow-up with his primary care doctor. The radiologist indicates there is a concern for abscess but patient clinically does not Appear toxic. He is very well-appearing. He is afebrile. I had a long discussion with the patient and his at the bedside regarding these fluid collections and he has been told about these when at other hospitals as well including when admitted at [facility] as well as recent visit to [facility] last week. There were no recommendations for IV antibiotics or admission regarding these areas. I did attempt to get records from [facility] but our fax machine is not working tonight due to power issues. Patient also does not have access to his [id number].As he clinically is well- appearing, I do not think he needs admission tonight as these areas have been present for several weeks and his clinical condition has not worsened. I did advise him to call his primary care doctor in the morning for close follow-up. He is comfortable with the plan for discharge and aware of return precautions. Departure - Departure Disposition: 01 Home, Self Care Clinical Impression: Abnormal CT of the abdomen Abdominal pain Qualifiers: Abdominal location: generalized Qualified Code(s): R10.84 - Generalized abdominal pain Condition: Stable Instructions: ED Abdominal Pain Unkn Cause Male Comments: The exact cause of your abdominal pain is not clear. Your CT scan does not show signs of a bowel blockage.Your CT scan does again show 2 abnormal collections, 1 in the liver and one near the spleen. These Were also seen on your previous CT scan here and you reported that you have been told about them from other hospitals as well. I do not think these lesions are an abscess as I would have expected you to develop a fever Or other worsening symptoms. I do think you need close follow-up with your primary care doctor to help expedite any further testing that can be done. Please return to the emergency department with any worsening symptoms. IMPRESSION: 1. Hypoattenuating loculated fluid collections redemonstrated in the left hepatic lobe and lateral to the spleen. The findings are again nonspecific but suggestive of abscess collections. The di fferential again includes necrotic mass lesions. 2. No evidence of bowel obstruction. 3. Short herniated segment of small bowel within the ventral umbilical hernia without evidence of bowel obstruction or strangulation. 4. Sclerosis within the T12 vertebral body which is similar to the recent prior study but new compared to older exams. The findings are nonspecific but metastatic disease cannot be excluded. Further evaluation may obtained with MRI or bone scan if clinically indicated. Discharge Date/Time: 05/13/22 02:11
[2022-05-12] MEDS ORDERED: DIATR MEGLU/DIATRIZOATE SODIUM 120 ML BOTTLE PO ONE (23:47)
--- NOTE | 2022-05-13 00:59 | CT Report ---
PROCEDURE: Abdomen/Pelvis WO INDICATIONS: abd pain/constipation/history of perf TECHNIQUE: Noncontrast 5 mm thick sections acquired from the diaphragms to the symphysis. 5 mm coronal and sagi ttal reformats were then performed. For radiation dose reduction, the following was used: automated exposure control, adjustment of mA and/or kV according to patient size. COMPARISON: CT abdomen pelvis 04/21/2022, 09/14/2019. FINDINGS: Image quality: Excellent. Lung bases:There is mild dependent atelectasis. Heart: Heart is normal in size. ABDOMEN: Liver:Hypoattenuating loculated fluid collection within segments 4A and 4B of the left hepatic lobe is redemonstrated, measuring approximately 5.7 x 4.0 x 3.8 cm. There is mild adjacent hypoattenuation within the hepatic parenchyma. Evaluation is limited in the absence of intravenous contrast. Gallbladder: Within normal limits without calcified gallstones. Biliary ducts: No biliary ductal dilatation. Pancreas: Unremarkable. Spleen: Normal in size.There is a perisplenic loculated fluid collection lateral to the spleen rede monstrated measuring approximately 4.9 x 2.0 cm in transverse dimension, similar in size compared to the prior study. Adrenal Glands: No adrenal nodules. Kidneys and Ureters: No hydronephrosis.There is a nonobstructing stone within the inferior pole of the left kidney measuring up to 0.5 cm. This demonstrates attenuation values of approximately 300-400 Hounsfield units. Stomach and Bowel: Stomach, small bowel loops, and colon are normal in caliber and wall thickness. N o evidence of appendicitis. There is colonic diverticulosis without acute diverticulitis. Peritoneum: No abnormal intraperitoneal fluid. No free air. Ventral Wall: There are a few periumbilical ventral hernias redemonstrated with short segments of jennifer wel herniation redemonstrated within 2 of the hernias. Abdominal Nodes: No retroperitoneal or mesenteric adenopathy by size criteria. Vessels: Aorta and inferior vena cava are normal in size. PELVIS: Pelvic Organs: Unremarkable. Bladder:The urinary bladder is partially distended. Pelvic Nodes: No enlarged lymph nodes. Miscellaneous: There is a fat-containing left inguinal hernia. Bones: Visualized osseous structures demonstrate sclerosis of the T12 vertebral body which is simila r to the recent prior study but new compared to the 2019 study. IMPRESSION: 1. Hypoattenuating loculated fluid collections redemonstrated in the left hepatic lobe and lateral to the spleen. The findings are again nonspecific but suggestive of abscess collections. The differenti al again includes necrotic mass lesions. 2. No evidence of bowel obstruction. 3. Short herniated segment of small bowel within the ventral umbilical hernia without evidence of bow el obstruction or strangulation. 4. Sclerosis within the T12 vertebral body which is similar to the recent prior study but new compare d to older exams. The findings are nonspecific but metastatic disease cannot be excluded. Further jonas luation may obtained with MRI or bone scan if clinically indicated. Reviewed by: Tomas Lane MD on 05/13/2022 12:58 AM PDT Approved by: Tomas Lane MD on 05/13/2022 12:58 AM PDT Station ID: [id number]
[2022-05-13 01:14] VITALS: BP 148/100
== END 2022-05-13 02:11 | disposition home or self-care (01) ==
LOC: ED 21:59
DX: R93.5 Abnormal findings on diagnostic imaging of other abdominal regions, including retroperitoneum (principal); R10.84 Generalized abdominal pain; F17.200 Nicotine dependence, unspecified, uncomplicated
CPT/HCPCS: 36415; 74176; 80053; 83690; 85025; 96374; 96375; 99284; Q9963

== ENCOUNTER 2022-05-20 11:22 | Emergency (ER) | payer MEDICAID ==
[2022-05-20 11:52] LABS: BILIRUBIN,URINE NEGATIVE (NEGATIVE); GLUCOSE, URINE (UA) NEGATIVE (NEGATIVE); KETONES,URINE (UA) NEGATIVE (NEGATIVE); LEUKOCYTE ESTERASE, URINE NEGATIVE (NEGATIVE); NITRITE,URINE NEGATIVE (NEGATIVE); OCCULT BLOOD,URINE NEGATIVE (NEGATIVE); PH,URINE 7.5 PH (5.0-7.5); PROTEIN,URINE NEGATIVE (NEGATIVE); UROBILINOGEN,URINE 0.2 (NORMAL) E.U./dL (NORMAL)
[2022-05-20 11:58] LABS: CLARITY,URINE CLEAR (CLEAR)
[2022-05-20 11:59] LABS: BASOPHILS % (AUTO) 0.7 %; EOSINOPHILS # (AUTO) 0.1 10^3/uL (0.0-0.7); EOSINOPHILS % (AUTO) 2.3 %; HCT - HEMATOCRIT 36.2 % (42.0-52.0); LYMPHOCYTES # (AUTO) 1.4 10^3/uL (1.5-3.5); LYMPHOCYTES % (AUTO) 22.6 %; MEAN CORPUSCULAR HEMOGLOBIN 29.8 pg (27.0-31.0); MEAN CORPUSCULAR HGB CONC 33.1 g/dL (32.0-36.0); MEAN CORPUSCULAR VOLUME 89.8 fL (80.0-94.0); MEAN PLATELET VOLUME 8.2 fL (7.4-11.4); MONOCYTES # (AUTO) 0.5 10^3/uL (0.0-1.0); MONOCYTES % (AUTO) 7.5 %; NEUTROPHILS # (AUTO) 4.1 10^3/uL (1.5-6.6); NEUTROPHILS % (AUTO) 66.7 %; PLT - PLATELET COUNT 335 10^3/uL (130-450); RED BLOOD COUNT 4.03 10^6/uL (4.70-6.10); RED CELL DISTRIBUTION WIDTH 13.1 % (12.0-15.0); WHITE BLOOD COUNT 6.1 x10^3/uL (4.8-10.8)
[2022-05-20 12:10] LABS: ALBUMIN 4.3 g/dL (3.2-5.5); ALBUMIN/GLOBULIN RATIO 1.4 (1.0-2.2); BILIRUBIN,TOTAL 0.5 mg/dL (0.2-1.0); CALCIUM 9.3 mg/dL (8.5-10.3); CREATININE 0.9 mg/dL (0.6-1.2); POTASSIUM 3.7 mmol/L (3.5-5.0); TOTAL PROTEIN 7.4 g/dL (6.7-8.2)
[2022-05-20] MEDS ORDERED: DICYCLOMINE 10 MG CAPSULE PO STA (12:53)
--- NOTE | 2022-05-20 13:03 | ED Physician Documentation ---
PD HPI ABD PAIN - Stated complaint Stated Complaint: ABDOMINAL PAIN - Chief complaint Chief Complaint: Abd Pain - History obtained from History obtained from: Patient, Family - History of Present Illness Timing - onset: How many months ago (2) Timing - duration: Months (2) Timing - details: Gradual onset Pain level max: 8 Pain level now: 6 Quality: Cramping, Aching, Pain Improved by: Other (nothing) Worsened by: Other (nothing) Associated symptoms: Constipation. No: Fever, Nausea, Vomiting, Hematemesis, Diarrhea, Melena, Hematochezia, Dysuria - Additional information Additional information: Patient is a 56-year-old male who complains of abdominal pain for the last several months. Has been seen at multiple hospitals and multiple emergency departments for same. He feels that he is constipated. He has not had any vomiting. No nausea. Here with his family. Has been referred to GI and interventional radiology for drainage of liver collections. No fevers. No chills. Nothing makes it better or worse. He states he feels "full". Review of Systems Constitutional: denies: Fever, Chills Cardiac: denies: Chest pain / pressure, Palpitations Respiratory: denies: Cough GI: denies: Vomiting : denies: Dysuria Skin: denies: Rash Musculoskeletal: denies: Neck pain, Back pain Neurologic: denies: Headache PD PAST MEDICAL HISTORY - Past Medical History Cardiovascular: Hypertension, High cholesterol Respiratory: None, COPD Neuro: None, Headaches Endocrine/Autoimmune: None GI: Chronic diarrhea, Other Psych: Depression, Anxiety, Bipolar disorder, ADD/ADHD, Other Musculoskeletal: Chronic back pain - Past Surgical History Past Surgical History: Yes - Present Medications Home Medications: Ambulatory Orders Medication Instructions Recorded Confirmed Losartan Potassium 100 mg PO DAILY 09/14/19 05/20/22 Atorvastatin [Lipitor] 20 mg PO DAILY 04/21/22 05/20/22 Dicyclomine [Bentyl] 10 - 20 mg PO QID PRN #30 cap 04/21/22 05/20/22 Trazodone HCl 100 mg PO DAILY PM 04/21/22 05/20/22 lamoTRIgine [Lamictal] 25 mg PO DAILY 04/21/22 05/20/22 Oxycodone HCl/Acetaminophen 1 - 2 each PO Q6H PRN #10 tablet 05/20/22 [Percocet 5-325 mg Tablet] - Allergies Allergies/Adverse Reactions: Allergies Allergy/AdvReac Type Severity Reaction Status Date / Time codeine AdvReac Cramps Verified 05/20/22 11:40 - Social History Does the pt smoke?: Yes Smoking Status: Current every day smoker Does the pt drink ETOH?: Yes Does the pt have substance abuse?: Yes - Immunizations Immunizations are current?: Yes - POLST Patient has POLST: No POLST Status: Full Code PD ED PE NORMAL - Vitals Vital signs reviewed: Yes - General General: Alert and oriented X 3, No acute distress - HEENT HEENT: PERRL, Moist mucous membranes - Neck Neck: Supple, no meningeal sign - Cardiac Cardiac: RRR, Strong equal pulses - Respiratory Respiratory: No respiratory distress, Clear bilaterally - Abdomen Abdomen: Normal bowel sounds, Soft, Non distended, Other (Mild diffuse tenderness to palpation without peritoneal signs) - Derm Derm: Warm and dry - Neuro Neuro: Alert and oriented X 3 - Psych Psych: Normal mood, Normal affect Results - Vitals Vitals: Vital Signs - 24 hr 05/20/22 05/20/22 05/20/22 11:35 15:05 16:49 Temperature 36.5 C 36.5 C Heart Rate 105 H 84 75 Respiratory 16 16 18 Rate Blood Pressure 132/97 H 139/99 H 135/75 H O2 Saturation 97 100 99 Oxygen O2 Source Room air - Labs Labs: Laboratory Tests 05/20/22 05/20/22 05/20/22 11:45 11:50 11:50 WBC 6.1 RBC 4.03 L Hgb 12.0 L Hct 36.2 L MCV 89.8 MCH 29.8 MCHC 33.1 RDW 13.1 Plt Count 335 MPV 8.2 Neut # (Auto) 4.1 Lymph # (Auto) 1.4 L [place] # (Auto) 0.5 Eos # (Auto) 0.1 Baso # (Auto) 0.0 Absolute Nucleated RBC 0.00 Nucleated RBC % 0.0 Sodium 139 Potassium 3.7 Chloride 104 Carbon Dioxide 25 Anion Gap 10.0 BUN 12 Creatinine 0.9 Estimated GFR (MDRD) 88 L Glucose 103 H Calcium 9.3 Total Bilirubin 0.5 AST 21 ALT 22 Alkaline Phosphatase 91 Total Protein 7.4 Albumin 4.3 Globulin 3.1 Albumin/Globulin Ratio 1.4 Lipase 24 Urine Color YELLOW Urine Clarity CLEAR Urine pH 7.5 Ur Specific [place] 1.010 Urine Protein NEGATIVE Urine Glucose (UA) NEGATIVE Urine Ketones NEGATIVE Urine Occult Blood NEGATIVE Urine Nitrite NEGATIVE Urine Bilirubin NEGATIVE Urine Urobilinogen 0.2 (NORMAL) Ur Leukocyte Esterase NEGATIVE Ur Microscopic Review NOT INDICATED Urine Culture Comments NOT INDICATED - Rads (name of study) CT abd/pelvis Radiology: Final report received, EMP read contemporaneously, See rad report PD MEDICAL DECISION MAKING - ED course Complexity details: reviewed results, re-evaluated patient, considered differential, d/w patient ED course: 56-year-old male with abdominal pain. Unclear etiology. Ongoing for the past several months. He is still awaiting biopsies of the fluid collections around his spleen and liver. No evidence of obstruction. No evidence of constipation on CT scan. Tolerating p.o. without difficulty here. Encourage the patient to stop using enemas. Will prescribe pain medication for home and have him follow- up with his doctor for further care. Patient counseled regarding signs and symptoms for which I believe and urgent re-evaluation would be necessary. Patient with good understanding of and agreement to plan and is comfortable going home at this time This document was made in part using voice recognition software. While efforts are made to proofread this document, sound alike and grammatical errors may occur. IMPRESSION: 1. No change in hepatosplenic hypodensities, possibly indicating abscesses. Hepatic neoplasm could also produces appearance. 2. No change in bowel containing periumbilical hernia without evidence of associated bowel strangulation, nor obstruction. 3. Normal appendix. 4. Nonobstructing right inferior pole renal calculus. 5. No change in T12 sclerotic focus, possibly neoplastic. Departure - Departure Disposition: 01 Home, Self Care Clinical Impression: Abdominal pain Qualifiers: Abdominal location: unspecified location Qualified Code(s): R10.9 - Unspecified abdominal pain Condition: Good Instructions: ED Abdominal Pain Unkn Cause Male Follow-Up: your,doctor in 1 week [Other] Prescriptions: Oxycodone HCl/Acetaminophen [Percocet 5-325 mg Tablet] 1 - 2 each PO Q6H PRN #10 tablet PRN Reason: pain Comments: The cause of your symptoms is unclear today. Your CT scan still shows the same findings from prior that you are currently awaiting follow-up for. Please follow-up with your doctor for further care. Your prescriptions were sent to [facility] in [place]. I am prescribing a short course of narcotic pain medication for you. These are potentially dangerous and addictive medications that should be used carefully. These medications may constipate you. Take an [id number] stool softener (docusate) twice daily with plenty of water while taking these medications. If you go 24 hours without a bowel movement, take [id number] miralax, per package instructions. Do not drink or drive while taking these medications. If you received narcotic or sedating medications while in the emergency department, do not drive for 24 hours. Store this medication in a safe, secure place and out of reach of children. It is a violation of federal law to give or sell this medication to another person or to use in a manner other than prescribed. The ED will not refill narcotic prescriptions, including prescriptions lost or stolen. To dispose of unwanted medications: 1. [facility] [address] in [place] has a medication drop box. They accept prescription medications (in pill form) Friday through Friday 9:00 a.m. to 5:00 p.m. 2. The [facility] [employer] [facility] accepts prescription medications (in pill form only) for disposal year round. Call for more information. 3. Contact the [facility] for the next [facility] sponsored prescription drug collection event. , [phone], or [phone]; ABDOMEN: Lung bases: Lung bases are clear. Heart size is normal. Solid organs: Liver and spleen are normal in size. 55 mm diameter hypodense focus within the medial segment left hepatic lobe. No change in subcapsular perisplenic hypodense focus measuring roughly 50 mm diameter. Gallbladder is within normal limits Pancreas is normal in contours. No adrenal nodules. Kidneys are normal in size, without hydronephrosis. Nonobstructing 4 mm calculus within the inferior pole right kidney. Peritoneum and bowel: Unenhanced bowel loops demonstrate normal wall thickness and caliber. No free fluid or air. Normal appendix. Nodes and vessels: No retroperitoneal or mesenteric adenopathy by size criteria. Aorta and inferior vena cava are normal in caliber. Miscellaneous: No change in small bowel and fat-containing periumbilical hernia measuring roughly 70 mm transverse. No evidence of associated bowel attenuation, nor obstruction. PELVIS: Genitourinary: Bladder wall thickness is normal. Miscellaneous: No inguinal hernias or adenopathy. Bones: No change in T12 sclerotic focus. No vertebral body compression fractures. IMPRESSION: 1. No change in hepatosplenic hypodensities, possibly indicating abscesses. Hepatic neoplasm could also produces appearance. 2. No change in bowel containing periumbilical hernia without evidence of associated bowel strangulation, nor obstruction. 3. Normal appendix. 4. Nonobstructing right inferior pole renal calculus. 5. No change in T12 sclerotic focus, possibly neoplastic. Discharge Date/Time: 05/20/22 15:00
--- NOTE | 2022-05-20 14:39 | CT Report ---
PROCEDURE: Abdomen/Pelvis WO INDICATIONS: diffuse abd pain TECHNIQUE: Noncontrast 5 mm thick sections acquired from the diaphragms to the symphysis. 5 mm coronal and sagi ttal reformats were then performed. For radiation dose reduction, the following was used: automated exposure control, adjustment of mA and/or kV according to patient size. COMPARISON: 05/13/2022 CT examination FINDINGS: Image quality: Excellent. ABDOMEN: Lung bases: Lung bases are clear. Heart size is normal. Solid organs: Liver and spleen are normal in size. 55 mm diameter hypodense focus within the medial segment left hepatic lobe. No change in subcapsular perisplenic hypodense focus measuring roughly 50 mm diameter. Gallbladder is within normal limits Pancreas is normal in contours. No adrenal nodules . Kidneys are normal in size, without hydronephrosis. Nonobstructing 4 mm calculus within the inferi or pole right kidney. Peritoneum and bowel: Unenhanced bowel loops demonstrate normal wall thickness and caliber. No free fluid or air. Normal appendix. Nodes and vessels: No retroperitoneal or mesenteric adenopathy by size criteria. Aorta and inferior vena cava are normal in caliber. Miscellaneous: No change in small bowel and fat-containing periumbilical hernia measuring roughly 70 mm transverse. No evidence of associated bowel attenuation, nor obstruction. PELVIS: Genitourinary: Bladder wall thickness is normal. Miscellaneous: No inguinal hernias or adenopathy. Bones: No change in T12 sclerotic focus. No vertebral body compression fractures. IMPRESSION: 1. No change in hepatosplenic hypodensities, possibly indicating abscesses. Hepatic neoplasm could al so produces appearance. 2. No change in bowel containing periumbilical hernia without evidence of associated bowel strangulat ion, nor obstruction. 3. Normal appendix. 4. Nonobstructing right inferior pole renal calculus. 5. No change in T12 sclerotic focus, possibly neoplastic. Reviewed by: Adrienne Esteban MD on 05/20/2022 2:38 PM PDT Approved by: Adrienne Esteban MD on 05/20/2022 2:38 PM PDT Station ID: [id number]
[2022-05-20] MEDS ORDERED: KETOROLAC 15 MG/ML VIAL IVP STA (14:49)
[2022-05-20] MEDS ORDERED: oxyCODONE 5 MG TABLET PO STA (14:58)
[2022-05-20 16:50] VITALS: BP 135/75
--- OUTSIDE RECORDS SUMMARY | 2022-05-23 15:54 | EXTERNAL MEDICAL SUMMARY RPT | Continuity of Care Document ---
:1965 Author Organization [place] Address [address] [place] [address] Phone Allergies and Intolerances date description facility type (no date) No Known Drug Allergies [facility] (unkn own) Encounters No information. Functional Status No information. Immunizations No information. Medications date description facility +0000 Lactulose 667 MG/ML Oral Solution [facility] Problems No information. Procedures date description facility [id number] [facility] +0000 [facility] Results/Labs test date author facility value unit interpret ation Result panel 1 (unknown) (no (unknown) (unknown) (no value) (units (unk nown) date) unknown) (unknown) (no (unknown) (unknown) [address] [place] [address] (units (unknown) date) unknown) (unknown) (no (unknown) (unknown) [place], [place] (units ( unknown) date) [id number] unknown) (unknown) (no (unknown) (unknown) [facility] (units (unknown) date) unknown) (unknown) (no (unknown) (unknown) Signed (units (unkno wn) date) unknown) (unknown) (no (unknown) (unknown) XRay Report (units (un known) date) unknown) (unknown) (no (unknown) (unknown) (no value) (units (unk nown) date) unknown) (unknown) (no (unknown) (unknown) 04/14/22 (units (unkno wn) date) unknown) (unknown) (no (unknown) (unknown) A (units (unkno wn) date) [id number] unknown) amount of stool can be seen within the colon. (unknown) (no (unknown) (unknown) Abdomen: Bowel (units (unknown) date) gas pattern is unknown) normal. No suspicious calcifications. (unknown) (no (unknown) (unknown) Approved by: (units (u nknown) date) Drake Diana zbigniew Chung on 04/14/2022 at 15:39 (unknown) (no (unknown) (unknown) Bones: No (units (unk nown) date) suspicious bony unknown) lesions. (unknown) (no (unknown) (unknown) COMPARISON: (units (un known) date) [facility] unknown) Hospital, CT, CT [facility]UB, 01/15/2021, 22:33. [place] (unknown) (no (unknown) (unknown) Chest: An (units (unk nown) date) incomplete unknown) inspiratory result is noted, causing a crowded appearance (unknown) (no (unknown) (unknown) Dictated by: (units (u nknown) date) zbigniew German M.D. on 04/14/2022 at 15:38 (unknown) (no (unknown) (unknown) FINDINGS: (units (unkn own) date) unknown) (unknown) (no (unknown) (unknown) IMPRESSION: A (units (unknown) date) nonobstructive unknown) bowel gas pattern is seen. (unknown) (no (unknown) (unknown) INDICATIONS: (units (u nknown) date) abd unknown) pain/constipation (unknown) (no (unknown) (unknown) If clinically (units ( unknown) date) appropriate, unknown) please consider a repeat plain film study or a (unknown) (no (unknown) (unknown) Low lung (units (unkno wn) date) volumes, without unknown) an acute chest abnormality seen. (unknown) (no (unknown) (unknown) Surgical changes (units (unknown) date) and devices: unknown) None. (unknown) (no (unknown) (unknown) TECHNIQUE: One (units (unknown) date) view chest and unknown) two views of the abdomen were acquired. (unknown) (no (unknown) (unknown) XR CHEST 1V, (units (u nknown) date) 05/19/2021, 17:34. unknown) (unknown) (no (unknown) (unknown) effusions are (units ( unknown) date) seen. Heart unknown) size is normal. No pneumoperitoneum. (unknown) (no (unknown) (unknown) lung markings. (units (unknown) date) No focal unknown) infiltrates are seen. No pneumothorax or significant (unknown) (no (unknown) (unknown) organ contours (units (unknown) date) appear normal. unknown) (unknown) (no (unknown) (unknown) the abdomen and (units (unknown) date) pelvis, if the unknown) patient's symptoms persist or worsen. (unknown) (no (unknown) (unknown) [id number] (units (unkno wn) date) unknown) (unknown) (no (unknown) (unknown) Accession (units (unkn own) date) Number: unknown) [id number] (unknown) (no (unknown) (unknown) Age/Sex: 56 / M (units (unknown) date) Date of unknown) Service: (unknown) (no (unknown) (unknown) : 1965 (units (unknown) date) Acct:[id number] unknown) (unknown) (no (unknown) (unknown) [facility], (units ( unknown) date) unknown) (unknown) (no (unknown) (unknown) Loc: ED (units (unkno wn) date) unknown) (unknown) (no (unknown) (unknown) Ordering (units (unkno wn) date) Provider: unknown) Jessica Aaron D.O. (unknown) (no (unknown) (unknown) PROCEDURE: XR (units (unknown) date) ACUTE ABDOMEN unknown) SERIES (unknown) (no (unknown) (unknown) Patient: (units (unkno wn) date) Milton Kaiser unknown) MR#: [id number] (unknown) (no (unknown) (unknown) Procedure: XR (units ( unknown) date) acute abdomen unknown) series (unknown) (no (unknown) (unknown) Visualized solid (units (unknown) date) unknown) (unknown) (no (unknown) (unknown) dedicated CT of (units (unknown) date) unknown) (unknown) (no (unknown) (unknown) pleural (units (unkno wn) date) unknown) (unknown) (no (unknown) (unknown) to the (units (unkno wn) date) unknown) Result panel 2 (unknown) (no date) (unknown) (unknown) 0.9 % (unkn own) (unknown) (no date) (unknown) (unknown) 1.8 % (unkn own) (unknown) (no date) (unknown) (unknown) 100 /uL (unkn own) (unknown) (no date) (unknown) (unknown) 100 /uL (unkn own) (unknown) (no date) (unknown) (unknown) 12.2 g/dL (unkn own) (unknown) (no date) (unknown) (unknown) 13.7 % (unkn own) (unknown) (no date) (unknown) (unknown) 1700 /uL (unkn own) (unknown) (no date) (unknown) (unknown) 24.3 % (unkn own) (unknown) (no date) (unknown) (unknown) 30.0 PG (unkn own) (unknown) (no date) (unknown) (unknown) 34.7 % (unkn own) (unknown) (no date) (unknown) (unknown) 35.1 % (unkn own) (unknown) (no date) (unknown) (unknown) 4.05 X10 6/uL (unkn own) (unknown) (no date) (unknown) (unknown) 400 /uL (unkn own) (unknown) (no date) (unknown) (unknown) 418 X10 3/uL (unkn own) (unknown) (no date) (unknown) (unknown) 4700 /uL (unkn own) (unknown) (no date) (unknown) (unknown) 5.8 % (unkn own) (unknown) (no date) (unknown) (unknown) 67.2 % (unkn own) (unknown) (no date) (unknown) (unknown) 7.0 X10 3/uL (unkn own) (unknown) (no date) (unknown) (unknown) 85.7 fL (unkn own) Result panel 3 (unknown) (no date) (unknown) (unknown) > 60 mL/min (unkn own) (unknown) (no date) (unknown) (unknown) 0.3 mg/dL (unkn own) (unknown) (no date) (unknown) (unknown) 0.81 mg/dL (unkn own) (unknown) (no date) (unknown) (unknown) 1.6 (units unknown) (unknown) (unknown) (no date) (unknown) (unknown) 103 mmol/L (unkn own) (unknown) (no date) (unknown) (unknown) 11.1 (units unknown) (unknown) (unknown) (no date) (unknown) (unknown) 115 mg/dL (unkn own) (unknown) (no date) (unknown) (unknown) 137 mmol/L (unkn own) (unknown) (no date) (unknown) (unknown) 227 U/L (unkn own) (unknown) (no date) (unknown) (unknown) 27 mmol/L (unkn own) (unknown) (no date) (unknown) (unknown) 3.0 g/dL (unkn own) (unknown) (no date) (unknown) (unknown) 3.8 mmol/L (unkn own) (unknown) (no date) (unknown) (unknown) 31 IU/L (unkn own) (unknown) (no date) (unknown) (unknown) 36 IU/L (unkn own) (unknown) (no date) (unknown) (unknown) 4.7 g/dL (unkn own) (unknown) (no date) (unknown) (unknown) 7.7 g/dL (unkn own) (unknown) (no date) (unknown) (unknown) 82 U/L (unkn own) (unknown) (no date) (unknown) (unknown) 9 mg/dL (unkn own) (unknown) (no date) (unknown) (unknown) 9.5 mg/dL (unkn own) Result panel 4 (unknown) (no (unknown) (unknown) (no value) (units (unk nown) date) unknown) (unknown) (no (unknown) (unknown) (no value) (units (unk nown) date) unknown) (unknown) (no (unknown) (unknown) [address] [place] [address] (units (unknown) date) unknown) (unknown) (no (unknown) (unknown) [place] (units ( unknown) date) [id number] unknown) (unknown) (no (unknown) (unknown) CT Scan Report (units (unknown) date) unknown) (unknown) (no (unknown) (unknown) [facility] (units (unknown) date) unknown) (unknown) (no (unknown) (unknown) Signed (units (unkno wn) date) unknown) (unknown) (no (unknown) (unknown) (no value) (units (unk nown) date) unknown) (unknown) (no (unknown) (unknown) 04/20/22 (units (unkno wn) date) unknown) (unknown) (no (unknown) (unknown) 1. Low-density (units (unknown) date) hepatic lesion is unknown) suspicious for neoplasm, but differential (unknown) (no (unknown) (unknown) 2. Low-density (units (unknown) date) splenic lesion is unknown) smaller than the prior exam in March (unknown) (no (unknown) (unknown) 3. Ventral (units (unk nown) date) hernias have unknown) increased in size and now contain loops of small bowel (unknown) (no (unknown) (unknown) ABDOMEN: (units (unkno wn) date) unknown) (unknown) (no (unknown) (unknown) Abdominal Nodes: (units (unknown) date) No retroperitoneal unknown) or mesenteric adenopathy by size criteria. (unknown) (no (unknown) (unknown) Adrenal Glands: (units (unknown) date) Unremarkable. unknown) (unknown) (no (unknown) (unknown) After the (units (unkn own) date) administration of unknown) intravenous contrast, axial sections acquired from (unknown) (no (unknown) (unknown) Approved by: Ramírez (units (unknown) date) Juliet Pulido on unknown) 04/20/2022 at 17:18 (unknown) (no (unknown) (unknown) Biliary ducts: (units (unknown) date) Unremarkable. unknown) (unknown) (no (unknown) (unknown) Bladder: (units (unkno wn) date) Unremarkable. unknown) (unknown) (no (unknown) (unknown) Bones: (units (unkno wn) date) Unremarkable. unknown) (unknown) (no (unknown) (unknown) COMPARISON: (units (un known) date) [facility] unknown) [facility], CT, CT KUB, 01/15/2021, 22:33. (unknown) (no (unknown) (unknown) FINDINGS: (units (unkn own) date) unknown) (unknown) (no (unknown) (unknown) Gallbladder: (units (u nknown) date) Unremarkable. unknown) (unknown) (no (unknown) (unknown) Heart: No (units (unk nown) date) significant unknown) findings. (unknown) (no (unknown) (unknown) IMPRESSION: (units (un known) date) unknown) (unknown) (no (unknown) (unknown) INDICATIONS: (units (u nknown) date) distention unknown) (unknown) (no (unknown) (unknown) Image quality: (units (unknown) date) Excellent. unknown) (unknown) (no (unknown) (unknown) Kidneys and (units (un known) date) Ureters: unknown) Nonobstructive 4 mm right renal calculus. No (unknown) (no (unknown) (unknown) Liver: There is (units (unknown) date) a 6.3 x 5.2 cm unknown) hypodense lesion in the left hepatic lobe (unknown) (no (unknown) (unknown) Lung bases: (units (un known) date) Unremarkable. unknown) (unknown) (no (unknown) (unknown) Miscellaneous: No (units (unknown) date) hernias are seen. unknown) (unknown) (no (unknown) (unknown) PELVIS: (units (unkno wn) date) unknown) (unknown) (no (unknown) (unknown) Pancreas: (units (unkn own) date) Unremarkable. unknown) (unknown) (no (unknown) (unknown) Pelvic Nodes: No (units (unknown) date) enlarged lymph unknown) nodes. (unknown) (no (unknown) (unknown) Pelvic Organs: (units (unknown) date) Unremarkable. unknown) (unknown) (no (unknown) (unknown) Peritoneum: No (units (unknown) date) abnormal unknown) intraperitoneal fluid. No free air. (unknown) (no (unknown) (unknown) Spleen: (units (unkno wn) date) Low-density unknown) splenic lesion measures 3.5 x 5.2 cm in, previously 4.8 x (unknown) (no (unknown) (unknown) Stomach and (units (un known) date) Bowel: Stomach, unknown) small bowel loops, and colon are unremarkable. (unknown) (no (unknown) (unknown) TECHNIQUE: (units (unk nown) date) unknown) (unknown) (no (unknown) (unknown) Ventral Wall: (units ( unknown) date) Several prior unknown) umbilical ventral hernias contain fat and bowel (unknown) (no (unknown) (unknown) Vessels: Aorta (units (unknown) date) and inferior vena unknown) cava are normal in size. (unknown) (no (unknown) (unknown) bases to the (units (u nknown) date) pubic symphysis. unknown) Coronal and sagittal reformats were performed. (unknown) (no (unknown) (unknown) bilaterally (units (un known) date) unknown) (unknown) (no (unknown) (unknown) diverticulosis (units (unknown) date) without evidence unknown) of diverticulitis. (unknown) (no (unknown) (unknown) evidence of (units (un known) date) obstruction. unknown) (unknown) (no (unknown) (unknown) falciform (units (unkn own) date) ligament. unknown) (unknown) (no (unknown) (unknown) obstruction. (units (u nknown) date) unknown) (unknown) (no (unknown) (unknown) of mA and/or kV (units (unknown) date) according to unknown) patient size. (unknown) (no (unknown) (unknown) prior trauma. (units ( unknown) date) Consider follow-up unknown) hepatic protocol MR. (unknown) (no (unknown) (unknown) radiation dose (units (unknown) date) reduction, the unknown) following was used: automated exposure control, (unknown) (no (unknown) (unknown) resolving (units (unkn own) date) posttraumatic unknown) seroma. Follow-up MR could also evaluate as well. (unknown) (no (unknown) (unknown) [id number] (units (unkno wn) date) unknown) (unknown) (no (unknown) (unknown) 7.2 cm (units (unkno wn) date) unknown) (unknown) (no (unknown) (unknown) Accession Number: (units (unknown) date) [id number] unknown) (unknown) (no (unknown) (unknown) Age/Sex: 56 / M (units (unknown) date) Date of Service: unknown) (unknown) (no (unknown) (unknown) : 1965 (units (unknown) date) Acct:[id number] unknown) (unknown) (no (unknown) (unknown) For (units (unkno wn) date) unknown) (unknown) (no (unknown) (unknown) Loc: ED (units (unkno wn) date) unknown) (unknown) (no (unknown) (unknown) Mild (units (unkno wn) date) unknown) (unknown) (no (unknown) (unknown) Ordering (units (unkno wn) date) Provider: unknown) Jessica Aaron D.O. (unknown) (no (unknown) (unknown) PROCEDURE: CT (units (unknown) date) ABDOMEN PELVIS W unknown) CON (unknown) (no (unknown) (unknown) Patient: (units (unkno wn) date) Milton Kaiser unknown) MR#: [id number] (unknown) (no (unknown) (unknown) Procedure: CT (units ( unknown) date) abdomen pelvis w unknown) con (unknown) (no (unknown) (unknown) adjacent to the (units (unknown) date) unknown) (unknown) (no (unknown) (unknown) adjustment (units (unk nown) date) unknown) (unknown) (no (unknown) (unknown) hydronephrosis (units (unknown) date) unknown) (unknown) (no (unknown) (unknown) reflect (units (unkno wn) date) unknown) (unknown) (no (unknown) (unknown) the lung (units (unkno wn) date) unknown) (unknown) (no (unknown) (unknown) without (units (unkno wn) date) unknown) (unknown) (no (unknown) (unknown) would include (units ( unknown) date) unknown) Result panel 5 (unknown) (no (unknown) (unknown) (no value) (units (unk nown) date) unknown) (unknown) (no (unknown) (unknown) Date of Service: (units (unknown) date) 04/20/22 unknown) (unknown) (no (unknown) (unknown) (no value) (units (unk nown) date) unknown) (unknown) (no (unknown) (unknown) Allergies (units (unkn own) date) unknown) (unknown) (no (unknown) (unknown) ED Orders (units (unkn own) date) unknown) (unknown) (no (unknown) (unknown) Emergency Report (units (unknown) date) unknown) (unknown) (no (unknown) (unknown) [facility] (units (unknown) date) [address] unknown) [place] [address] (unknown) (no (unknown) (unknown) Vital Signs - 8 (units (unknown) date) hr unknown) (unknown) (no (unknown) (unknown) (no value) (units (unk nown) date) unknown) (unknown) (no (unknown) (unknown) 04/20/22 (units (unkno wn) date) unknown) (unknown) (no (unknown) (unknown) [id number] (units (unkno wn) date) unknown) (unknown) (no (unknown) (unknown) 04/20/22 17:00 (units (unknown) date) unknown) (unknown) (no (unknown) (unknown) 04/20/22 17:05 (units (unknown) date) unknown) (unknown) (no (unknown) (unknown) 16:57 (units (unkno wn) date) unknown) (unknown) (no (unknown) (unknown) Age/Sex: 56 / M (units (unknown) date) unknown) (unknown) (no (unknown) (unknown) Alcohol type: (units ( unknown) date) beer unknown) (unknown) (no (unknown) (unknown) Allergy/AdvReac (units (unknown) date) Type Severity unknown) Reaction Status Date / Time (unknown) (no (unknown) (unknown) Tiffany Holbrook (units (unknown) date) MD Cristo [Primary unknown) Care Provider] - (unknown) (no (unknown) (unknown) Blood Pressure (units (unknown) date) 107/61 04/20/22 unknown) 16:57 (unknown) (no (unknown) (unknown) Blood Pressure (units (unknown) date) 107/61 unknown) (unknown) (no (unknown) (unknown) CT abdomen (units (unk nown) date) pelvis w con Stat unknown) (unknown) (no (unknown) (unknown) Chief Complaint: (units (unknown) date) Abdominal Pain unknown) (unknown) (no (unknown) (unknown) Complete Blood (units (unknown) date) Count AUTO DIFF unknown) Stat (unknown) (no (unknown) (unknown) Comprehensive (units ( unknown) date) Metabolic Panel unknown) Stat (unknown) (no (unknown) (unknown) Course (units (unkno wn) date) unknown) (unknown) (no (unknown) (unknown) : 1965 (units (unknown) date) Acct:[id number] unknown) (unknown) (no (unknown) (unknown) Departure (units (unkn own) date) unknown) (unknown) (no (unknown) (unknown) Discharge Plan (units (unknown) date) unknown) (unknown) (no (unknown) (unknown) EKG-12 Lead Stat (units (unknown) date) unknown) (unknown) (no (unknown) (unknown) ER Physician: (units ( unknown) date) Jessica Aaron unknown) D.O. (unknown) (no (unknown) (unknown) Exam (units (unkno wn) date) unknown) (unknown) (no (unknown) (unknown) General (units (unkno wn) date) unknown) (unknown) (no (unknown) (unknown) HPI - Abdominal (units (unknown) date) Pain unknown) (unknown) (no (unknown) (unknown) Hyperlipidemia (units (unknown) date) unknown) (unknown) (no (unknown) (unknown) Hypertension (units (u nknown) date) unknown) (unknown) (no (unknown) (unknown) Initial Vital (units ( unknown) date) Signs unknown) (unknown) (no (unknown) (unknown) Initial Vital (units ( unknown) date) Signs: unknown) (unknown) (no (unknown) (unknown) Lactate (Lactic (units (unknown) date) Acid) Stat unknown) (unknown) (no (unknown) (unknown) Lipase Stat (units (un known) date) unknown) (unknown) (no (unknown) (unknown) Medical History (units (unknown) date) (Reviewed unknown) 09/09/21 @ 10:01 by Avelino Lawton DO) (unknown) (no (unknown) (unknown) Mode of arrival: (units (unknown) date) Wheelchair unknown) (unknown) (no (unknown) (unknown) No Known Drug (units ( unknown) date) Allergies Allergy unknown) Verified 04/20/22 17:00 (unknown) (no (unknown) (unknown) Ordered: (units (unkno wn) date) unknown) (unknown) (no (unknown) (unknown) Orders (units (unkno wn) date) unknown) (unknown) (no (unknown) (unknown) Patient History (units (unknown) date) unknown) (unknown) (no (unknown) (unknown) Patient: (units (unkno wn) date) Milton Kaiser unknown) MR#: [id number] (unknown) (no (unknown) (unknown) Pulse Oximetry (units (unknown) date) 98 04/20/22 unknown) 16:57 (unknown) (no (unknown) (unknown) Pulse Oximetry (units (unknown) date) 98 unknown) (unknown) (no (unknown) (unknown) Pulse Rate 104 (units (unknown) date) H 04/20/22 16:57 unknown) (unknown) (no (unknown) (unknown) Pulse Rate 104 H (units (unknown) date) unknown) (unknown) (no (unknown) (unknown) Referrals: (units (unk nown) date) unknown) (unknown) (no (unknown) (unknown) Related Data (units (u nknown) date) unknown) (unknown) (no (unknown) (unknown) Respiratory Rate (units (unknown) date) 16 04/20/22 unknown) 16:57 (unknown) (no (unknown) (unknown) Respiratory Rate (units (unknown) date) 16 unknown) (unknown) (no (unknown) (unknown) Schizophrenia (units ( unknown) date) unknown) (unknown) (no (unknown) (unknown) Signed By: (units (unk nown) date) unknown) (unknown) (no (unknown) (unknown) Smoking Status: (units (unknown) date) Current every day unknown) smoker (unknown) (no (unknown) (unknown) Smoking Status: (units (unknown) date) Current every day unknown) smoker (unknown) (no (unknown) (unknown) Social History (units (unknown) date) (Reviewed unknown) 09/09/21 @ 10:01 by Avelino Lawton DO) (unknown) (no (unknown) (unknown) Stated (units (unkno wn) date) Complaint: ABD unknown) pain (unknown) (no (unknown) (unknown) Substance Use (units ( unknown) date) Type: marijuana unknown) (unknown) (no (unknown) (unknown) Temperature (units (un known) date) 96.7 F L unknown) 04/20/22 16:57 (unknown) (no (unknown) (unknown) Temperature 96.7 (units (unknown) date) F L unknown) (unknown) (no (unknown) (unknown) Time Seen by (units (u nknown) date) Provider: unknown) 04/20/22 17:05 (unknown) (no (unknown) (unknown) Vital Signs (units (un known) date) unknown) (unknown) (no (unknown) (unknown) Vital signs: (units (u nknown) date) unknown) (unknown) (no (unknown) (unknown) alcohol intake (units (unknown) date) frequency: 0-2 unknown) drinks per day Result panel 6 (unknown) (no date) (unknown) (unknown) 0 /uL (unkn own) (unknown) (no date) (unknown) (unknown) 0.5 % (unkn own) (unknown) (no date) (unknown) (unknown) 11.9 g/dL (unkn own) (unknown) (no date) (unknown) (unknown) 13.9 % (unkn own) (unknown) (no date) (unknown) (unknown) 1700 /uL (unkn own) (unknown) (no date) (unknown) (unknown) 2.8 % (unkn own) (unknown) (no date) (unknown) (unknown) 200 /uL (unkn own) (unknown) (no date) (unknown) (unknown) 27.9 % (unkn own) (unknown) (no date) (unknown) (unknown) 29.4 PG (unkn own) (unknown) (no date) (unknown) (unknown) 320 X10 3/uL (unkn own) (unknown) (no date) (unknown) (unknown) 33.8 % (unkn own) (unknown) (no date) (unknown) (unknown) 35.3 % (unkn own) (unknown) (no date) (unknown) (unknown) 3800 /uL (unkn own) (unknown) (no date) (unknown) (unknown) 4.06 X10 6/uL (unkn own) (unknown) (no date) (unknown) (unknown) 500 /uL (unkn own) (unknown) (no date) (unknown) (unknown) 6.1 X10 3/uL (unkn own) (unknown) (no date) (unknown) (unknown) 61.4 % (unkn own) (unknown) (no date) (unknown) (unknown) 7.4 % (unkn own) (unknown) (no date) (unknown) (unknown) 86.9 fL (unkn own) Result panel 7 (unknown) (no date) (unknown) (unknown) > 60 mL/min (unkn own) (unknown) (no date) (unknown) (unknown) 0.6 mg/dL (unkn own) (unknown) (no date) (unknown) (unknown) 0.98 mg/dL (unkn own) (unknown) (no date) (unknown) (unknown) 1.5 (units unknown) (unknown) (unknown) (no date) (unknown) (unknown) 1.7 mmol/L (unkn own) (unknown) (no date) (unknown) (unknown) 105 mmol/L (unkn own) (unknown) (no date) (unknown) (unknown) 139 mmol/L (unkn own) (unknown) (no date) (unknown) (unknown) 14 mg/dL (unkn own) (unknown) (no date) (unknown) (unknown) 14.3 (units unknown) (unknown) (unknown) (no date) (unknown) (unknown) 2.5 g/dL (unkn own) (unknown) (no date) (unknown) (unknown) 22 IU/L (unkn own) (unknown) (no date) (unknown) (unknown) 23 IU/L (unkn own) (unknown) (no date) (unknown) (unknown) 25 mmol/L (unkn own) (unknown) (no date) (unknown) (unknown) 3.7 g/dL (unkn own) (unknown) (no date) (unknown) (unknown) 4.1 mmol/L (unkn own) (unknown) (no date) (unknown) (unknown) 44 U/L (unkn own) (unknown) (no date) (unknown) (unknown) 6.2 g/dL (unkn own) (unknown) (no date) (unknown) (unknown) 70 U/L (unkn own) (unknown) (no date) (unknown) (unknown) 8.5 mg/dL (unkn own) (unknown) (no date) (unknown) (unknown) 89 mg/dL (unkn own) Result panel 8 (unknown) (no (unknown) (unknown) (no value) (units (unk nown) date) unknown) (unknown) (no (unknown) (unknown) Radiologist's (units ( unknown) date) Impression: unknown) (unknown) (no (unknown) (unknown) (no value) (units (unk nown) date) unknown) (unknown) (no (unknown) (unknown) Date of Service: (units (unknown) date) 04/20/22 unknown) (unknown) (no (unknown) (unknown) (no value) (units (unk nown) date) unknown) (unknown) (no (unknown) (unknown) 04/20/22 17:42 (units (unknown) date) unknown) (unknown) (no (unknown) (unknown) Allergies (units (unkn own) date) unknown) (unknown) (no (unknown) (unknown) CT Scan Report (units (unknown) date) unknown) (unknown) (no (unknown) (unknown) Documented by: (units (unknown) date) CARSON unknown) (unknown) (no (unknown) (unknown) ED Orders (units (unkn own) date) unknown) (unknown) (no (unknown) (unknown) Emergency Report (units (unknown) date) unknown) (unknown) (no (unknown) (unknown) [facility] (units (unknown) date) [address] unknown) [place] [address] (unknown) (no (unknown) (unknown) Lab Results (units (un known) date) unknown) (unknown) (no (unknown) (unknown) Last Admin: (units (un known) date) 04/20/22 18:05 unknown) Dose: 0.5 mg (unknown) (no (unknown) (unknown) Signed (units (unkno wn) date) unknown) (unknown) (no (unknown) (unknown) Stop: 04/20/22 (units (unknown) date) 17:59 unknown) (unknown) (no (unknown) (unknown) Vital Signs - 8 (units (unknown) date) hr unknown) (unknown) (no (unknown) (unknown) (no value) (units (unk nown) date) unknown) (unknown) (no (unknown) (unknown) 04/20/22 04/20/22 (units (unknown) date) 04/20/22 unknown) Range/Units (unknown) (no (unknown) (unknown) 17:42 17:42 17:42 (units (unknown) date) unknown) (unknown) (no (unknown) (unknown) 04/20/22 (units (unkno wn) date) unknown) (unknown) (no (unknown) (unknown) include (units (unkno wn) date) unknown) (unknown) (no (unknown) (unknown) [id number] (units (unkno wn) date) unknown) (unknown) (no (unknown) (unknown) 04/20/22 17:00 (units (unknown) date) unknown) (unknown) (no (unknown) (unknown) 04/20/22 17:32 (units (unknown) date) unknown) (unknown) (no (unknown) (unknown) 04/20/22 17:42 (units (unknown) date) unknown) (unknown) (no (unknown) (unknown) 1. Low-density (units ( unknown) date) hepatic lesion is unknown) suspicious for neoplasm, but differential would (unknown) (no (unknown) (unknown) 12 point review (units (unknown) date) of systems is unknown) negative except for those stated above and HPI (unknown) (no (unknown) (unknown) 16:57 (units (unkno wn) date) unknown) (unknown) (no (unknown) (unknown) 2. Low-density (units (unknown) date) splenic lesion is unknown) smaller than the prior exam in 2020, march (unknown) (no (unknown) (unknown) 3. Ventral (units (unk nown) date) hernias have unknown) increased in size and now contain loops of small bowel (unknown) (no (unknown) (unknown) 56-year-old Male (units (unknown) date) history of unknown) obstruction presenting today with abdominal pain (unknown) (no (unknown) (unknown) 7.2 cm (units (unkno wn) date) unknown) (unknown) (no (unknown) (unknown) ? (units (unkno wn) date) unknown) (unknown) (no (unknown) (unknown) ABDOMEN: (units (unkno wn) date) unknown) (unknown) (no (unknown) (unknown) ABDOMEN: (units (unkno wn) date) Vertical scar unknown) noted ventral hernia reducible distension increased (unknown) (no (unknown) (unknown) ALT 22 (<50) (units (unknown) date) IU/L unknown) (unknown) (no (unknown) (unknown) AST 23 (units (unkno wn) date) (17-59) IU/L unknown) (unknown) (no (unknown) (unknown) Abdominal Nodes:? (units (unknown) date) No retroperitoneal unknown) or mesenteric adenopathy by size criteria.? (unknown) (no (unknown) (unknown) Accession Number: (units (unknown) date) [id number] ?? unknown) (unknown) (no (unknown) (unknown) Acct:[id number] (units (unknown) date) unknown) (unknown) (no (unknown) (unknown) Adrenal Glands:? (units (unknown) date) Unremarkable.? ? unknown) (unknown) (no (unknown) (unknown) After the (units (unkn own) date) administration of unknown) intravenous contrast, axial sections acquired from (unknown) (no (unknown) (unknown) Age/Sex: 56 / M (units (unknown) date) unknown) (unknown) (no (unknown) (unknown) Age/Sex: 56 / M (units (unknown) date) unknown) (unknown) (no (unknown) (unknown) Albumin 3.7 (units ( unknown) date) (3.5-5.0) g/dL unknown) (unknown) (no (unknown) (unknown) Albumin/Globulin (units (unknown) date) Ratio 1.5 unknown) (1.0-2.8) (unknown) (no (unknown) (unknown) Alcohol type: (units ( unknown) date) beer unknown) (unknown) (no (unknown) (unknown) Alkaline (units (unkno wn) date) Phosphatase 70 unknown) (38-126) U/L (unknown) (no (unknown) (unknown) Allergy/AdvReac (units (unknown) date) Type Severity unknown) Reaction Status Date / Time (unknown) (no (unknown) (unknown) And previously it (units (unknown) date) patient says that unknown) he ate a bunch of baking soda and ?blew (unknown) (no (unknown) (unknown) Approved by: Ramírez Cruzunits (unknown) date) Juliet Pulido on unknown) 04/20/2022 at 17:18? (unknown) (no (unknown) (unknown) BUN 14 (9-20) (units (unknown) date) mg/dL unknown) (unknown) (no (unknown) (unknown) BUN/Creatinine (units (unknown) date) Ratio 14.3 unknown) (6-22) (unknown) (no (unknown) (unknown) Tiffany Holbrook, (units (unknown) date) [Primary Care unknown) Provider] - (unknown) (no (unknown) (unknown) Baso # (Auto) 0 (units (unknown) date) (0-100) /uL unknown) (unknown) (no (unknown) (unknown) Baso % (Auto) (units ( unknown) date) 0.5 (0-2) % unknown) (unknown) (no (unknown) (unknown) Biliary ducts:? (units (unknown) date) Unremarkable.? ? unknown) (unknown) (no (unknown) (unknown) Bladder:? (units (unkn own) date) Unremarkable.? ? unknown) (unknown) (no (unknown) (unknown) Blood Pressure (units (unknown) date) 107/61 04/20/22 unknown) 16:57 (unknown) (no (unknown) (unknown) Blood Pressure (units (unknown) date) 107/61 unknown) (unknown) (no (unknown) (unknown) Bones:? (units (unkno wn) date) Unremarkable.? ? unknown) (unknown) (no (unknown) (unknown) CARDIOVASCULAR: (units (unknown) date) Denies chest pain, unknown) palpitations, orthopnea, edema (unknown) (no (unknown) (unknown) CARDIOVASCULAR: (units (unknown) date) Regular rate and unknown) rhythm without murmurs, rubs or gallops. (unknown) (no (unknown) (unknown) COMPAR[facility] ([facility] (u nknown) date[facility], [facility], 22:33. (unknown) (no (unknown) (unknown) CT abdomen pelvis (units (unknown) date) w con Stat unknown) (unknown) (no (unknown) (unknown) CT scan - (units (unkn own) date) abdomen/pelvis: unknown) (unknown) (no (unknown) (unknown) Calcium 8.5 (units ( unknown) date) (8.4-10.2) mg/dL unknown) (unknown) (no (unknown) (unknown) Carbon Dioxide (units (unknown) date) 25 (22-32) unknown) mmol/L (unknown) (no (unknown) (unknown) Chief Complaint: (units (unknown) date) Abdominal Pain unknown) (unknown) (no (unknown) (unknown) Chloride 105 (units (unknown) date) (98-107) mmol/L unknown) (unknown) (no (unknown) (unknown) Complete Blood (units (unknown) date) Count AUTO DIFF unknown) Stat (unknown) (no (unknown) (unknown) Comprehensive (units ( unknown) date) Metabolic Panel unknown) Stat (unknown) (no (unknown) (unknown) Course (units (unkno wn) date) unknown) (unknown) (no (unknown) (unknown) Creatinine 0.98 (units (unknown) date) (0.66-1.25) unknown) mg/dL (unknown) (no (unknown) (unknown) : 1965 (units (unknown) date) Acct:[id number] unknown) (unknown) (no (unknown) (unknown) : 1965 (units (unknown) date) unknown) (unknown) (no (unknown) (unknown) Date of Service: (units (unknown) date) 04/20/22 unknown) (unknown) (no (unknown) (unknown) Departure (units (unkn own) date) unknown) (unknown) (no (unknown) (unknown) Discharge Plan (units (unknown) date) unknown) (unknown) (no (unknown) (unknown) Discontinued (units (u nknown) date) Medications unknown) (unknown) (no (unknown) (unknown) EKG-12 Lead Stat (units (unknown) date) unknown) (unknown) (no (unknown) (unknown) ER Physician: (units ( unknown) date) Jessica Aaron unknown) D.O. (unknown) (no (unknown) (unknown) EXTREMITIES: (units (u nknown) date) Normal range of unknown) motion, no clubbing or edema. Neurovascularly (unknown) (no (unknown) (unknown) Eos # (Auto) 200 (units (unknown) date) (0-450) /uL unknown) (unknown) (no (unknown) (unknown) Eos % (Auto) 2.8 (units (unknown) date) (2-4) % unknown) (unknown) (no (unknown) (unknown) Estimated GFR > (units (unknown) date) 60 (>60) mL/min unknown) (unknown) (no (unknown) (unknown) Exam (units (unkno wn) date) unknown) (unknown) (no (unknown) (unknown) FINDINGS:? (units (unk nown) date) unknown) (unknown) (no (unknown) (unknown) For (units (unkno wn) date) unknown) (unknown) (no (unknown) (unknown) GASTROINTESTINAL: (units (unknown) date) See HPI unknown) (unknown) (no (unknown) (unknown) GENERAL: Alert (units (unknown) date) 56-year-old male unknown) acute distress (unknown) (no (unknown) (unknown) GENERAL: Denies (units (unknown) date) chills, fatigue, unknown) malaise, fever, sweats, travel (unknown) (no (unknown) (unknown) : Denies (units (unkn own) date) dysuria, unknown) frequency, incontinence, hematuria, urinary retention, flank (unknown) (no (unknown) (unknown) Gallbladder:? (units ( unknown) date) Unremarkable.? ? unknown) (unknown) (no (unknown) (unknown) General (units (unkno wn) date) unknown) (unknown) (no (unknown) (unknown) GenericComposite[ (units (unknown) date) Plt Count 320 unknown) (150-400) X10^3/uL ] (unknown) (no (unknown) (unknown) GenericComposite[ (units (unknown) date) RBC 4.06 L unknown) (4.5-5.9) X10^6/uL ] (unknown) (no (unknown) (unknown) GenericComposite[ (units (unknown) date) WBC 6.1 unknown) (4.5-11.0) X10^3/uL ] (unknown) (no (unknown) (unknown) Globulin 2.5 (units (unknown) date) (1.7-4.1) g/dL unknown) (unknown) (no (unknown) (unknown) Glucose 89 (units (u nknown) date) (70-100) mg/dL unknown) (unknown) (no (unknown) (unknown) HEENT: Denies (units ( unknown) date) sinus pain, ear unknown) pain, sore throat, difficulty swallowing, neck (unknown) (no (unknown) (unknown) HEENT: Head (units (un known) date) atraumatic,EOMI, unknown) pupils reactive, face symmetric, [moist] mucous (unknown) (no (unknown) (unknown) HPI - Abdominal (units (unknown) date) Pain unknown) (unknown) (no (unknown) (unknown) HPI narrative: (units (unknown) date) unknown) (unknown) (no (unknown) (unknown) Hct 35.3 L (units (un known) date) (41-53) % unknown) (unknown) (no (unknown) (unknown) He has a known (units (unknown) date) ventral hernia. unknown) (unknown) (no (unknown) (unknown) Heart:? No (units (unk nown) date) significant unknown) findings. (unknown) (no (unknown) (unknown) Hgb 11.9 L (units (un known) date) (13.5-17.5) g/dL unknown) (unknown) (no (unknown) (unknown) History of (units (unk nown) date) Present Illness unknown) (unknown) (no (unknown) (unknown) Hydromorphone HCl (units (unknown) date) (Hydromorphone 1 unknown) Mg Inj) 1 mg IV NOW ONE (unknown) (no (unknown) (unknown) Hyperlipidemia (units (unknown) date) unknown) (unknown) (no (unknown) (unknown) Hypertension (units (u nknown) date) unknown) (unknown) (no (unknown) (unknown) IMPRESSION:? (units (u nknown) date) unknown) (unknown) (no (unknown) (unknown) INDICATIONS:? (units ( unknown) date) distention unknown) (unknown) (no (unknown) (unknown) Image quality:? (units (unknown) date) Excellent.? unknown) (unknown) (no (unknown) (unknown) Imaging Data (units (u nknown) date) unknown) (unknown) (no (unknown) (unknown) Initial Vital (units ( unknown) date) Signs unknown) (unknown) (no (unknown) (unknown) Initial Vital (units ( unknown) date) Signs: unknown) (unknown) (no (unknown) (unknown) Kidneys and (units (un known) date) Ureters:? unknown) Nonobstructive 4 mm right renal calculus.? No (unknown) (no (unknown) (unknown) Lab Data (units (unkno wn) date) unknown) (unknown) (no (unknown) (unknown) Labs: (units (unkno wn) date) unknown) (unknown) (no (unknown) (unknown) Lactate 1.7 (units (unknown) date) (0.7-2.1) mmol/L unknown) (unknown) (no (unknown) (unknown) Lactate (Lactic (units (unknown) date) Acid) Stat unknown) (unknown) (no (unknown) (unknown) Lipase 44 D (units (unknown) date) (23-300) U/L unknown) (unknown) (no (unknown) (unknown) Lipase Stat (units (un known) date) unknown) (unknown) (no (unknown) (unknown) Liver:? There is (units (unknown) date) a 6.3 x 5.2 cm unknown) hypodense lesion in the left hepatic lobe (unknown) (no (unknown) (unknown) Loc: ED (units (unkno wn) date) unknown) (unknown) (no (unknown) (unknown) Lung bases:? (units (u nknown) date) Unremarkable. unknown) (unknown) (no (unknown) (unknown) Lymph # (Auto) (units (unknown) date) 1700 unknown) (2388-6889) /uL (unknown) (no (unknown) (unknown) Lymph % (Auto) (units (unknown) date) 27.9 (25-40) % unknown) (unknown) (no (unknown) (unknown) MCH 29.4 (units (unkn own) date) (26-34) PG unknown) (unknown) (no (unknown) (unknown) MCHC 33.8 (units (unk nown) date) (30-36) % unknown) (unknown) (no (unknown) (unknown) MCV 86.9 (units (unkn own) date) (80-100) fL unknown) (unknown) (no (unknown) (unknown) MDM - Abdominal (units (unknown) date) Pain unknown) (unknown) (no (unknown) (unknown) MR#: [id number] (units (unknown) date) unknown) (unknown) (no (unknown) (unknown) MUSCULOSKELETAL: (units (unknown) date) Denies weakness, unknown) joint pain, or bony pain (unknown) (no (unknown) (unknown) Medical History (units (unknown) date) (Reviewed 09/09/21 unknown) @ 10:01 by Avelino Lawton DO) (unknown) (no (unknown) (unknown) Mild (units (unkno wn) date) unknown) (unknown) (no (unknown) (unknown) Miscellaneous: No (units (unknown) date) hernias are seen. unknown) ? ? (unknown) (no (unknown) (unknown) Mode of arrival: (units (unknown) date) Wheelchair unknown) (unknown) (no (unknown) (unknown) [place] # (Auto) (units ( unknown) date) 500 (0-900) unknown) /uL (unknown) (no (unknown) (unknown) [place] % (Auto) (units ( unknown) date) 7.4 (3-14) % unknown) (unknown) (no (unknown) (unknown) NEUROLOGIC: (units (un known) date) Denies weakness, unknown) dizziness, headache, numbness, change in speech, (unknown) (no (unknown) (unknown) NEUROLOGICAL: (units ( unknown) date) Alert and oriented unknown) x4.Normal gait and speech. (unknown) (no (unknown) (unknown) Narrative: (units (unk nown) date) unknown) (unknown) (no (unknown) (unknown) Neut # (Auto) (units ( unknown) date) 3800 unknown) (8231-4238) /uL (unknown) (no (unknown) (unknown) Neut % (Auto) (units ( unknown) date) 61.4 (50-75) % unknown) (unknown) (no (unknown) (unknown) No Known Drug (units ( unknown) date) Allergies Allergy unknown) Verified 04/20/22 17:00 (unknown) (no (unknown) (unknown) Ordered: (units (unkno wn) date) unknown) (unknown) (no (unknown) (unknown) Ordering (units (unkno wn) date) Provider: unknown) Jessica Aaron D.O. (unknown) (no (unknown) (unknown) Orders (units (unkno wn) date) unknown) (unknown) (no (unknown) (unknown) PELVIS: (units (unkno wn) date) unknown) (unknown) (no (unknown) (unknown) PROCEDURE:? CT (units (unknown) date) ABDOMEN PELVIS W unknown) CON (unknown) (no (unknown) (unknown) PSYCHIATRIC: No (units (unknown) date) concerning unknown) psychosocial issues. (unknown) (no (unknown) (unknown) Pancreas:? (units (unk nown) date) Unremarkable.? ? unknown) (unknown) (no (unknown) (unknown) Patient History (units (unknown) date) unknown) (unknown) (no (unknown) (unknown) Patient: (units (unkno wn) date) [place] unknown) MR#: [id number] (unknown) (no (unknown) (unknown) Patient: (units (unkno wn) date) [place] unknown) (unknown) (no (unknown) (unknown) Pelvic Nodes: No (units (unknown) date) enlarged lymph unknown) nodes.? (unknown) (no (unknown) (unknown) Pelvic Organs:? (units (unknown) date) Unremarkable.? ? unknown) (unknown) (no (unknown) (unknown) Peritoneum:? No (units (unknown) date) abnormal unknown) intraperitoneal fluid.? No free air.? (unknown) (no (unknown) (unknown) Potassium 4.1 (units (unknown) date) (3.4-5.1) mmol/L unknown) (unknown) (no (unknown) (unknown) Procedure: CT (units ( unknown) date) abdomen pelvis w unknown) con (unknown) (no (unknown) (unknown) Pulse Oximetry (units (unknown) date) 98 04/20/22 unknown) 16:57 (unknown) (no (unknown) (unknown) Pulse Oximetry 98 (units (unknown) date) unknown) (unknown) (no (unknown) (unknown) Pulse Rate 104 H (units (unknown) date) 04/20/22 16:57 unknown) (unknown) (no (unknown) (unknown) Pulse Rate 104 H (units (unknown) date) unknown) (unknown) (no (unknown) (unknown) RDW 13.9 (units (unkn own) date) (11.6-14.8) % unknown) (unknown) (no (unknown) (unknown) RESPIRATORY: (units (u nknown) date) Breath sounds unknown) equal bilaterally, no wheezes rales or rhonchi. (unknown) (no (unknown) (unknown) RESPIRATORY: (units (u nknown) date) Denies dyspnea, unknown) cough, wheezing, hemoptysis, sputum. (unknown) (no (unknown) (unknown) Referrals: (units (unk nown) date) unknown) (unknown) (no (unknown) (unknown) Related Data (units (u nknown) date) unknown) (unknown) (no (unknown) (unknown) Respiratory Rate (units (unknown) date) 16 04/20/22 unknown) 16:57 (unknown) (no (unknown) (unknown) Respiratory Rate (units (unknown) date) 16 unknown) (unknown) (no (unknown) (unknown) Result diagrams: (units (unknown) date) unknown) (unknown) (no (unknown) (unknown) Review of Systems (units (unknown) date) unknown) (unknown) (no (unknown) (unknown) SKIN: No rash, no (units (unknown) date) erythema, no unknown) pruritus (unknown) (no (unknown) (unknown) SKIN: Warm, dry, (units (unknown) date) no laceration, no unknown) petechiae, no rashes or lesions. (unknown) (no (unknown) (unknown) Schizophrenia (units ( unknown) date) unknown) (unknown) (no (unknown) (unknown) Signed By: (units (unk nown) date) unknown) (unknown) (no (unknown) (unknown) Smoking Status: (units (unknown) date) Current every day unknown) smoker (unknown) (no (unknown) (unknown) Smoking Status: (units (unknown) date) Current every day unknown) smoker (unknown) (no (unknown) (unknown) Social History (units (unknown) date) (Reviewed 09/09/21 unknown) @ 10:01 by Avelino Lawton DO) (unknown) (no (unknown) (unknown) Sodium 139 (units (u nknown) date) (137-145) mmol/L unknown) (unknown) (no (unknown) (unknown) Spleen:? (units (unkno wn) date) Low-density unknown) splenic lesion measures 3.5 x 5.2 cm in, previously 4.8 x (unknown) (no (unknown) (unknown) Stated Complaint: (units (unknown) date) ABD pain unknown) (unknown) (no (unknown) (unknown) Stomach and (units (un known) date) Bowel:? Stomach, unknown) small bowel loops, and colon are unremarkable.? (unknown) (no (unknown) (unknown) Substance Use (units ( unknown) date) Type: marijuana unknown) (unknown) (no (unknown) (unknown) TECHNIQUE:? (units (un known) date) unknown) (unknown) (no (unknown) (unknown) Temperature 96.7 (units (unknown) date) F L 04/20/22 unknown) 16:57 (unknown) (no (unknown) (unknown) Temperature 96.7 (units (unknown) date) F L unknown) (unknown) (no (unknown) (unknown) Time Seen by (units (u nknown) date) Provider: 04/20/22 unknown) 17:05 (unknown) (no (unknown) (unknown) Total Bilirubin (units (unknown) date) 0.6 (0.2-1.3) unknown) mg/dL (unknown) (no (unknown) (unknown) Total Protein (units ( unknown) date) 6.2 L (6.3-8.2) unknown) g/dL (unknown) (no (unknown) (unknown) Ventral Wall:? (units (unknown) date) Several prior unknown) umbilical ventral hernias contain fat and bowel (unknown) (no (unknown) (unknown) Vessels:? Aorta (units (unknown) date) and inferior vena unknown) cava are normal in size.? (unknown) (no (unknown) (unknown) Vital Signs (units (un known) date) unknown) (unknown) (no (unknown) (unknown) Vital signs: (units (u nknown) date) unknown) (unknown) (no (unknown) (unknown) [Embedded Image (units (unknown) date) Not Available] unknown) (unknown) (no (unknown) (unknown) adjacent to the (units (unknown) date) unknown) (unknown) (no (unknown) (unknown) adjustment (units (unk nown) date) unknown) (unknown) (no (unknown) (unknown) alcohol intake (units (unknown) date) frequency: 0-2 unknown) drinks per day (unknown) (no (unknown) (unknown) bases to the (units (u nknown) date) pubic symphysis.? unknown) Coronal and sagittal reformats were performed.? (unknown) (no (unknown) (unknown) being seen. (units (un known) date) Presents again unknown) today with increasing pain and pressure. Says it (unknown) (no (unknown) (unknown) bilaterally (units (un known) date) unknown) (unknown) (no (unknown) (unknown) bowel sounds no (units (unknown) date) localization of unknown) pain (unknown) (no (unknown) (unknown) confusion (units (unkn own) date) unknown) (unknown) (no (unknown) (unknown) diverticulosis (units (unknown) date) without evidence unknown) of diverticulitis. (unknown) (no (unknown) (unknown) evidence of (units (un known) date) obstruction. unknown) (unknown) (no (unknown) (unknown) falciform (units (unkn own) date) ligament. unknown) (unknown) (no (unknown) (unknown) himself up ?and (units (unknown) date) needed surgery. unknown) (unknown) (no (unknown) (unknown) hurts when he (units ( unknown) date) moves. No nausea unknown) vomiting fever. No chest pain or palpitations. (unknown) (no (unknown) (unknown) hydronephrosis (units (unknown) date) unknown) (unknown) (no (unknown) (unknown) intact (units (unkno wn) date) unknown) (unknown) (no (unknown) (unknown) membranes (units (unkn own) date) unknown) (unknown) (no (unknown) (unknown) obstruction.? (units ( unknown) date) unknown) (unknown) (no (unknown) (unknown) of mA and/or kV (units (unknown) date) according to unknown) patient size.? (unknown) (no (unknown) (unknown) ongoing for at (units (unknown) date) least a week. He unknown) was actually seen here on April 14 and x-ray (unknown) (no (unknown) (unknown) pain (units (unkno wn) date) unknown) (unknown) (no (unknown) (unknown) pain. (units (unkno wn) date) unknown) (unknown) (no (unknown) (unknown) prior trauma.? (units (unknown) date) Consider follow-up unknown) hepatic protocol MR. (unknown) (no (unknown) (unknown) radiation dose (units (unknown) date) reduction, the unknown) following was used:? automated exposure control, (unknown) (no (unknown) (unknown) reflect (units (unkno wn) date) unknown) (unknown) (no (unknown) (unknown) resolving (units (unkn own) date) posttraumatic unknown) seroma.? Follow-up MR could also evaluate as well.? (unknown) (no (unknown) (unknown) the lung (units (unkno wn) date) unknown) (unknown) (no (unknown) (unknown) was ordered from (units (unknown) date) the waiting room unknown) however he left without results and without (unknown) (no (unknown) (unknown) without (units (unkno wn) date) unknown) Result panel 9 (unknown) (no (unknown) (unknown) (no value) (units (unk nown) date) unknown) (unknown) (no (unknown) (unknown) Radiologist's (units ( unknown) date) Impression: unknown) (unknown) (no (unknown) (unknown) (no value) (units (unk nown) date) unknown) (unknown) (no (unknown) (unknown) Date of Service: (units (unknown) date) 04/20/22 unknown) (unknown) (no (unknown) (unknown) (no value) (units (unk nown) date) unknown) (unknown) (no (unknown) (unknown) 04/20/22 17:42 (units (unknown) date) unknown) (unknown) (no (unknown) (unknown) Allergies (units (unkn own) date) unknown) (unknown) (no (unknown) (unknown) CT Scan Report (units (unknown) date) unknown) (unknown) (no (unknown) (unknown) Documented by: (units (unknown) date) CARSON unknown) (unknown) (no (unknown) (unknown) ED Orders (units (unkn own) date) unknown) (unknown) (no (unknown) (unknown) Emergency Report (units (unknown) date) unknown) (unknown) (no (unknown) (unknown) [facility] (units (unknown) date) [address] unknown) [place] [address] (unknown) (no (unknown) (unknown) Lab Results (units (un known) date) unknown) (unknown) (no (unknown) (unknown) Last Admin: (units (un known) date) 04/20/22 18:05 unknown) Dose: 0.5 mg (unknown) (no (unknown) (unknown) Signed (units (unkno wn) date) unknown) (unknown) (no (unknown) (unknown) Stop: 04/20/22 (units (unknown) date) 17:59 unknown) (unknown) (no (unknown) (unknown) Vital Signs - 8 (units (unknown) date) hr unknown) (unknown) (no (unknown) (unknown) (no value) (units (unk nown) date) unknown) (unknown) (no (unknown) (unknown) 04/20/22 04/20/22 (units (unknown) date) 04/20/22 unknown) Range/Units (unknown) (no (unknown) (unknown) 17:42 17:42 17:42 (units (unknown) date) unknown) (unknown) (no (unknown) (unknown) 04/20/22 (units (unkno wn) date) unknown) (unknown) (no (unknown) (unknown) Constipation (units (u nknown) date) unknown) (unknown) (no (unknown) (unknown) include (units (unkno wn) date) unknown) (unknown) (no (unknown) (unknown) [id number] (units (unkno wn) date) unknown) (unknown) (no (unknown) (unknown) 04/20/22 17:00 (units (unknown) date) unknown) (unknown) (no (unknown) (unknown) 04/20/22 17:32 (units (unknown) date) unknown) (unknown) (no (unknown) (unknown) 04/20/22 17:42 (units (unknown) date) unknown) (unknown) (no (unknown) (unknown) 1. Low-density (units ( unknown) date) hepatic lesion is unknown) suspicious for neoplasm, but differential would (unknown) (no (unknown) (unknown) 12 point review (units (unknown) date) of systems is unknown) negative except for those stated above and HPI (unknown) (no (unknown) (unknown) 16:57 (units (unkno wn) date) unknown) (unknown) (no (unknown) (unknown) 2. Low-density (units (unknown) date) splenic lesion is unknown) smaller than the prior exam in 2020, march (unknown) (no (unknown) (unknown) 3. Ventral (units (unk nown) date) hernias have unknown) increased in size and now contain loops of small bowel (unknown) (no (unknown) (unknown) 56-year-old Male (units (unknown) date) history of unknown) obstruction presenting today with abdominal pain (unknown) (no (unknown) (unknown) 7.2 cm (units (unkno wn) date) unknown) (unknown) (no (unknown) (unknown) ? (units (unkno wn) date) unknown) (unknown) (no (unknown) (unknown) ABDOMEN: (units (unkno wn) date) unknown) (unknown) (no (unknown) (unknown) ABDOMEN: (units (unkno wn) date) Vertical scar unknown) noted ventral hernia reducible distension increased (unknown) (no (unknown) (unknown) ALT 22 (<50) (units (unknown) date) IU/L unknown) (unknown) (no (unknown) (unknown) AST 23 (units (unkno wn) date) (17-59) IU/L unknown) (unknown) (no (unknown) (unknown) Abdominal Nodes:? (units (unknown) date) No retroperitoneal unknown) or mesenteric adenopathy by size criteria.? (unknown) (no (unknown) (unknown) Accession Number: (units (unknown) date) [id number] ?? unknown) (unknown) (no (unknown) (unknown) Acct:[id number] (units (unknown) date) unknown) (unknown) (no (unknown) (unknown) Adrenal Glands:? (units (unknown) date) Unremarkable.? ? unknown) (unknown) (no (unknown) (unknown) After the (units (unkn own) date) administration of unknown) intravenous contrast, axial sections acquired from (unknown) (no (unknown) (unknown) Age/Sex: 56 / M (units (unknown) date) unknown) (unknown) (no (unknown) (unknown) Age/Sex: 56 / M (units (unknown) date) unknown) (unknown) (no (unknown) (unknown) Albumin 3.7 (units ( unknown) date) (3.5-5.0) g/dL unknown) (unknown) (no (unknown) (unknown) Albumin/Globulin (units (unknown) date) Ratio 1.5 unknown) (1.0-2.8) (unknown) (no (unknown) (unknown) Alcohol type: (units ( unknown) date) beer unknown) (unknown) (no (unknown) (unknown) Alkaline (units (unkno wn) date) Phosphatase 70 unknown) (38-126) U/L (unknown) (no (unknown) (unknown) Allergy/AdvReac (units (unknown) date) Type Severity unknown) Reaction Status Date / Time (unknown) (no (unknown) (unknown) And previously it (units (unknown) date) patient says that unknown) he ate a bunch of baking soda and ?blew (unknown) (no (unknown) (unknown) Approved by: Ramírez (units (unknown) date) Juliet Pulido on unknown) 04/20/2022 at 17:18? (unknown) (no (unknown) (unknown) BUN 14 (9-20) (units (unknown) date) mg/dL unknown) (unknown) (no (unknown) (unknown) BUN/Creatinine (units (unknown) date) Ratio 14.3 unknown) (6-22) (unknown) (no (unknown) (unknown) Tfifany Holbrook, (units (unknown) date) [Primary Care unknown) Provider] - (unknown) (no (unknown) (unknown) Baso # (Auto) 0 (units (unknown) date) (0-100) /uL unknown) (unknown) (no (unknown) (unknown) Baso % (Auto) (units ( unknown) date) 0.5 (0-2) % unknown) (unknown) (no (unknown) (unknown) Biliary ducts:? (units (unknown) date) Unremarkable.? ? unknown) (unknown) (no (unknown) (unknown) Bladder:? (units (unkn own) date) Unremarkable.? ? unknown) (unknown) (no (unknown) (unknown) Blood Pressure (units (unknown) date) 107/61 04/20/22 unknown) 16:57 (unknown) (no (unknown) (unknown) Blood Pressure (units (unknown) date) 107/61 unknown) (unknown) (no (unknown) (unknown) Bones:? (units (unkno wn) date) Unremarkable.? ? unknown) (unknown) (no (unknown) (unknown) CARDIOVASCULAR: (units (unknown) date) Denies chest pain, unknown) palpitations, orthopnea, edema (unknown) (no (unknown) (unknown) CARDIOVASCULAR: (units (unknown) date) Regular rate and unknown) rhythm without murmurs, rubs or gallops. (unknown) (no (unknown) (unknown) COMPARISON:? (units (u nknown) date) [facility] unknown) [facility], CT, CT [facility], 01/15/2021, 22:33. (unknown) (no (unknown) (unknown) CT abdomen pelvis (units (unknown) date) w con Stat unknown) (unknown) (no (unknown) (unknown) CT scan - (units (unkn own) date) abdomen/pelvis: unknown) (unknown) (no (unknown) (unknown) Calcium 8.5 (units ( unknown) date) (8.4-10.2) mg/dL unknown) (unknown) (no (unknown) (unknown) Carbon Dioxide (units (unknown) date) 25 (22-32) unknown) mmol/L (unknown) (no (unknown) (unknown) Chief Complaint: (units (unknown) date) Abdominal Pain unknown) (unknown) (no (unknown) (unknown) Chloride 105 (units (unknown) date) (98-107) mmol/L unknown) (unknown) (no (unknown) (unknown) Clinical (units (unkno wn) date) Impression: unknown) (unknown) (no (unknown) (unknown) Complete Blood (units (unknown) date) Count AUTO DIFF unknown) Stat (unknown) (no (unknown) (unknown) Comprehensive (units ( unknown) date) Metabolic Panel unknown) Stat (unknown) (no (unknown) (unknown) Course (units (unkno wn) date) unknown) (unknown) (no (unknown) (unknown) Creatinine 0.98 (units (unknown) date) (0.66-1.25) unknown) mg/dL (unknown) (no (unknown) (unknown) : 1965 (units (unknown) date) Acct:[id number] unknown) (unknown) (no (unknown) (unknown) : 1965 (units (unknown) date) unknown) (unknown) (no (unknown) (unknown) Date of Service: (units (unknown) date) 04/20/22 unknown) (unknown) (no (unknown) (unknown) Departure (units (unkn own) date) unknown) (unknown) (no (unknown) (unknown) Discharge Plan (units (unknown) date) unknown) (unknown) (no (unknown) (unknown) Discontinued (units (u nknown) date) Medications unknown) (unknown) (no (unknown) (unknown) EKG-12 Lead Stat (units (unknown) date) unknown) (unknown) (no (unknown) (unknown) ER Physician: (units ( unknown) date) Jessica Aaron unknown) D.O. (unknown) (no (unknown) (unknown) EXTREMITIES: (units (u nknown) date) Normal range of unknown) motion, no clubbing or edema. Neurovascularly (unknown) (no (unknown) (unknown) Eos # (Auto) 200 (units (unknown) date) (0-450) /uL unknown) (unknown) (no (unknown) (unknown) Eos % (Auto) 2.8 (units (unknown) date) (2-4) % unknown) (unknown) (no (unknown) (unknown) Estimated GFR > (units (unknown) date) 60 (>60) mL/min unknown) (unknown) (no (unknown) (unknown) Exam (units (unkno wn) date) unknown) (unknown) (no (unknown) (unknown) FINDINGS:? (units (unk nown) date) unknown) (unknown) (no (unknown) (unknown) For (units (unkno wn) date) unknown) (unknown) (no (unknown) (unknown) GASTROINTESTINAL: (units (unknown) date) See HPI unknown) (unknown) (no (unknown) (unknown) GENERAL: Alert (units (unknown) date) 56-year-old male unknown) acute distress (unknown) (no (unknown) (unknown) GENERAL: Denies (units (unknown) date) chills, fatigue, unknown) malaise, fever, sweats, travel (unknown) (no (unknown) (unknown) : Denies (units (unkn own) date) dysuria, unknown) frequency, incontinence, hematuria, urinary retention, flank (unknown) (no (unknown) (unknown) Gallbladder:? (units ( unknown) date) Unremarkable.? ? unknown) (unknown) (no (unknown) (unknown) General (units (unkno wn) date) unknown) (unknown) (no (unknown) (unknown) GenericComposite[ (units (unknown) date) Plt Count 320 unknown) (150-400) X10^3/uL ] (unknown) (no (unknown) (unknown) GenericComposite[ (units (unknown) date) RBC 4.06 L unknown) (4.5-5.9) X10^6/uL ] (unknown) (no (unknown) (unknown) GenericComposite[ (units (unknown) date) WBC 6.1 unknown) (4.5-11.0) X10^3/uL ] (unknown) (no (unknown) (unknown) Globulin 2.5 (units (unknown) date) (1.7-4.1) g/dL unknown) (unknown) (no (unknown) (unknown) Glucose 89 (units (u nknown) date) (70-100) mg/dL unknown) (unknown) (no (unknown) (unknown) HEENT: Denies (units ( unknown) date) sinus pain, ear unknown) pain, sore throat, difficulty swallowing, neck (unknown) (no (unknown) (unknown) HEENT: Head (units (un known) date) atraumatic,EOMI, unknown) pupils reactive, face symmetric, [moist] mucous (unknown) (no (unknown) (unknown) HPI - Abdominal (units (unknown) date) Pain unknown) (unknown) (no (unknown) (unknown) HPI narrative: (units (unknown) date) unknown) (unknown) (no (unknown) (unknown) Hct 35.3 L (units (un known) date) (41-53) % unknown) (unknown) (no (unknown) (unknown) Heart:? No (units (unk nown) date) significant unknown) findings. (unknown) (no (unknown) (unknown) Hgb 11.9 L (units (un known) date) (13.5-17.5) g/dL unknown) (unknown) (no (unknown) (unknown) History of (units (unk nown) date) Present Illness unknown) (unknown) (no (unknown) (unknown) Hydromorphone HCl (units (unknown) date) (Hydromorphone 1 unknown) Mg Inj) 1 mg IV NOW ONE (unknown) (no (unknown) (unknown) Hyperlipidemia (units (unknown) date) unknown) (unknown) (no (unknown) (unknown) Hypertension (units (u nknown) date) unknown) (unknown) (no (unknown) (unknown) IMPRESSION:? (units (u nknown) date) unknown) (unknown) (no (unknown) (unknown) INDICATIONS:? (units ( unknown) date) distention unknown) (unknown) (no (unknown) (unknown) Image quality:? (units (unknown) date) Excellent.? unknown) (unknown) (no (unknown) (unknown) Imaging Data (units (u nknown) date) unknown) (unknown) (no (unknown) (unknown) Initial Vital (units ( unknown) date) Signs unknown) (unknown) (no (unknown) (unknown) Initial Vital (units ( unknown) date) Signs: unknown) (unknown) (no (unknown) (unknown) Kidneys and (units (un known) date) Ureters:? unknown) Nonobstructive 4 mm right renal calculus.? No (unknown) (no (unknown) (unknown) Lab Data (units (unkno wn) date) unknown) (unknown) (no (unknown) (unknown) Labs: (units (unkno wn) date) unknown) (unknown) (no (unknown) (unknown) Lactate 1.7 (units (unknown) date) (0.7-2.1) mmol/L unknown) (unknown) (no (unknown) (unknown) Lactate (Lactic (units (unknown) date) Acid) Stat unknown) (unknown) (no (unknown) (unknown) Lipase 44 D (units (unknown) date) (23-300) U/L unknown) (unknown) (no (unknown) (unknown) Lipase Stat (units (un known) date) unknown) (unknown) (no (unknown) (unknown) Liver:? There is (units (unknown) date) a 6.3 x 5.2 cm unknown) hypodense lesion in the left hepatic lobe (unknown) (no (unknown) (unknown) Loc: ED (units (unkno wn) date) unknown) (unknown) (no (unknown) (unknown) Lung bases:? (units (u nknown) date) Unremarkable. unknown) (unknown) (no (unknown) (unknown) Lymph # (Auto) (units (unknown) date) 1700 unknown) (2773-1360) /uL (unknown) (no (unknown) (unknown) Lymph % (Auto) (units (unknown) date) 27.9 (25-40) % unknown) (unknown) (no (unknown) (unknown) MCH 29.4 (units (unkn own) date) (26-34) PG unknown) (unknown) (no (unknown) (unknown) MCHC 33.8 (units (unk nown) date) (30-36) % unknown) (unknown) (no (unknown) (unknown) MCV 86.9 (units (unkn own) date) (80-100) fL unknown) (unknown) (no (unknown) (unknown) MDM - Abdominal (units (unknown) date) Pain unknown) (unknown) (no (unknown) (unknown) MR#: [id number] (units (unknown) date) unknown) (unknown) (no (unknown) (unknown) MUSCULOSKELETAL: (units (unknown) date) Denies weakness, unknown) joint pain, or bony pain (unknown) (no (unknown) (unknown) Medical History (units (unknown) date) (Reviewed 09/09/21 unknown) @ 10:01 by Avelino Lawton DO) (unknown) (no (unknown) (unknown) Mild (units (unkno wn) date) unknown) (unknown) (no (unknown) (unknown) Miscellaneous: No (units (unknown) date) hernias are seen. unknown) ? ? (unknown) (no (unknown) (unknown) Mode of arrival: (units (unknown) date) Wheelchair unknown) (unknown) (no (unknown) (unknown) [place] # (Auto) (units ( unknown) date) 500 (0-900) unknown) /uL (unknown) (no (unknown) (unknown) [place] % (Auto) (units ( unknown) date) 7.4 (3-14) % unknown) (unknown) (no (unknown) (unknown) NEUROLOGIC: (units (un known) date) Denies weakness, unknown) dizziness, headache, numbness, change in speech, (unknown) (no (unknown) (unknown) NEUROLOGICAL: (units ( unknown) date) Alert and oriented unknown) x4.Normal gait and speech. (unknown) (no (unknown) (unknown) Narrative: (units (unk nown) date) unknown) (unknown) (no (unknown) (unknown) Neut # (Auto) (units ( unknown) date) 3800 unknown) (6471-6948) /uL (unknown) (no (unknown) (unknown) Neut % (Auto) (units ( unknown) date) 61.4 (50-75) % unknown) (unknown) (no (unknown) (unknown) No Known Drug (units ( unknown) date) Allergies Allergy unknown) Verified 04/20/22 17:00 (unknown) (no (unknown) (unknown) Ordered: (units (unkno wn) date) unknown) (unknown) (no (unknown) (unknown) Ordering (units (unkno wn) date) Provider: unknown) Jessica Aaron D.O. (unknown) (no (unknown) (unknown) Orders (units (unkno wn) date) unknown) (unknown) (no (unknown) (unknown) PELVIS: (units (unkno wn) date) unknown) (unknown) (no (unknown) (unknown) PROCEDURE:? CT (units (unknown) date) ABDOMEN PELVIS W unknown) CON (unknown) (no (unknown) (unknown) PSYCHIATRIC: No (units (unknown) date) concerning unknown) psychosocial issues. (unknown) (no (unknown) (unknown) Pancreas:? (units (unk nown) date) Unremarkable.? ? unknown) (unknown) (no (unknown) (unknown) Patient (units (unkno wn) date) Disposition: Home unknown) (unknown) (no (unknown) (unknown) Patient History (units (unknown) date) unknown) (unknown) (no (unknown) (unknown) Patient: (units (unkno wn) date) Milton Kaiser unknown) MR#: [id number] (unknown) (no (unknown) (unknown) Patient: (units (unkno wn) date) Milton Kaiser unknown) (unknown) (no (unknown) (unknown) Pelvic Nodes: No (units (unknown) date) enlarged lymph unknown) nodes.? (unknown) (no (unknown) (unknown) Pelvic Organs:? (units (unknown) date) Unremarkable.? ? unknown) (unknown) (no (unknown) (unknown) Peritoneum:? No (units (unknown) date) abnormal unknown) intraperitoneal fluid.? No free air.? (unknown) (no (unknown) (unknown) Potassium 4.1 (units (unknown) date) (3.4-5.1) mmol/L unknown) (unknown) (no (unknown) (unknown) Procedure: CT (units ( unknown) date) abdomen pelvis w unknown) con (unknown) (no (unknown) (unknown) Pulse Oximetry (units (unknown) date) 98 04/20/22 unknown) 16:57 (unknown) (no (unknown) (unknown) Pulse Oximetry 98 (units (unknown) date) unknown) (unknown) (no (unknown) (unknown) Pulse Rate 104 H (units (unknown) date) 04/20/22 16:57 unknown) (unknown) (no (unknown) (unknown) Pulse Rate 104 H (units (unknown) date) unknown) (unknown) (no (unknown) (unknown) RDW 13.9 (units (unkn own) date) (11.6-14.8) % unknown) (unknown) (no (unknown) (unknown) RESPIRATORY: (units (u nknown) date) Breath sounds unknown) equal bilaterally, no wheezes rales or rhonchi. (unknown) (no (unknown) (unknown) RESPIRATORY: (units (u nknown) date) Denies dyspnea, unknown) cough, wheezing, hemoptysis, sputum. (unknown) (no (unknown) (unknown) Referrals: (units (unk nown) date) unknown) (unknown) (no (unknown) (unknown) Related Data (units (u nknown) date) unknown) (unknown) (no (unknown) (unknown) Respiratory Rate (units (unknown) date) 16 04/20/22 unknown) 16:57 (unknown) (no (unknown) (unknown) Respiratory Rate (units (unknown) date) 16 unknown) (unknown) (no (unknown) (unknown) Result diagrams: (units (unknown) date) unknown) (unknown) (no (unknown) (unknown) Review of Systems (units (unknown) date) unknown) (unknown) (no (unknown) (unknown) SKIN: No rash, no (units (unknown) date) erythema, no unknown) pruritus (unknown) (no (unknown) (unknown) SKIN: Warm, dry, (units (unknown) date) no laceration, no unknown) petechiae, no rashes or lesions. (unknown) (no (unknown) (unknown) Schizophrenia (units ( unknown) date) unknown) (unknown) (no (unknown) (unknown) Signed By: (units (unk nown) date) unknown) (unknown) (no (unknown) (unknown) Smoking Status: (units (unknown) date) Current every day unknown) smoker (unknown) (no (unknown) (unknown) Smoking Status: (units (unknown) date) Current every day unknown) smoker (unknown) (no (unknown) (unknown) Social History (units (unknown) date) (Reviewed 09/09/21 unknown) @ 10:01 by Avelino Lawton DO) (unknown) (no (unknown) (unknown) Sodium 139 (units (u nknown) date) (137-145) mmol/L unknown) (unknown) (no (unknown) (unknown) Spleen:? (units (unkno wn) date) Low-density unknown) splenic lesion measures 3.5 x 5.2 cm in, previously 4.8 x (unknown) (no (unknown) (unknown) Stated Complaint: (units (unknown) date) ABD pain unknown) (unknown) (no (unknown) (unknown) Stomach and (units (un known) date) Bowel:? Stomach, unknown) small bowel loops, and colon are unremarkable.? (unknown) (no (unknown) (unknown) Substance Use (units ( unknown) date) Type: marijuana unknown) (unknown) (no (unknown) (unknown) TECHNIQUE:? (units (un known) date) unknown) (unknown) (no (unknown) (unknown) Temperature 96.7 (units (unknown) date) F L 04/20/22 unknown) 16:57 (unknown) (no (unknown) (unknown) Temperature 96.7 (units (unknown) date) F L unknown) (unknown) (no (unknown) (unknown) Time Seen by (units (u nknown) date) Provider: 04/20/22 unknown) 17:05 (unknown) (no (unknown) (unknown) Total Bilirubin (units (unknown) date) 0.6 (0.2-1.3) unknown) mg/dL (unknown) (no (unknown) (unknown) Total Protein (units ( unknown) date) 6.2 L (6.3-8.2) unknown) g/dL (unknown) (no (unknown) (unknown) Ventral Wall:? (units (unknown) date) Several prior unknown) umbilical ventral hernias contain fat and bowel (unknown) (no (unknown) (unknown) Vessels:? Aorta (units (unknown) date) and inferior vena unknown) cava are normal in size.? (unknown) (no (unknown) (unknown) Vital Signs (units (un known) date) unknown) (unknown) (no (unknown) (unknown) Vital signs: (units (u nknown) date) unknown) (unknown) (no (unknown) (unknown) [Embedded Image (units (unknown) date) Not Available] unknown) (unknown) (no (unknown) (unknown) adjacent to the (units (unknown) date) unknown) (unknown) (no (unknown) (unknown) adjustment (units (unk nown) date) unknown) (unknown) (no (unknown) (unknown) alcohol intake (units (unknown) date) frequency: 0-2 unknown) drinks per day (unknown) (no (unknown) (unknown) bases to the (units (u nknown) date) pubic symphysis.? unknown) Coronal and sagittal reformats were performed.? (unknown) (no (unknown) (unknown) being seen. Mild (units (unknown) date) to moderate amount unknown) of stool within the colon without (unknown) (no (unknown) (unknown) bilaterally (units (un known) date) unknown) (unknown) (no (unknown) (unknown) bowel sounds no (units (unknown) date) localization of unknown) pain (unknown) (no (unknown) (unknown) chest pain or (units ( unknown) date) palpitations. He unknown) has a known ventral hernia. (unknown) (no (unknown) (unknown) confusion (units (unkn own) date) unknown) (unknown) (no (unknown) (unknown) diverticulosis (units (unknown) date) without evidence unknown) of diverticulitis. (unknown) (no (unknown) (unknown) evidence of (units (un known) date) obstruction. unknown) (unknown) (no (unknown) (unknown) falciform (units (unkn own) date) ligament. unknown) (unknown) (no (unknown) (unknown) feels like he has (units (unknown) date) a history with unknown) full. Presents again today with increasing (unknown) (no (unknown) (unknown) himself up ?and (units (unknown) date) needed surgery. unknown) (unknown) (no (unknown) (unknown) hydronephrosis (units (unknown) date) unknown) (unknown) (no (unknown) (unknown) intact (units (unkno wn) date) unknown) (unknown) (no (unknown) (unknown) membranes (units (unkn own) date) unknown) (unknown) (no (unknown) (unknown) obstruction. He (units (unknown) date) states he has not unknown) had a bowel movement in over a week. He (unknown) (no (unknown) (unknown) obstruction.? (units ( unknown) date) unknown) (unknown) (no (unknown) (unknown) of mA and/or kV (units (unknown) date) according to unknown) patient size.? (unknown) (no (unknown) (unknown) ongoing for at (units (unknown) date) least a week. He unknown) was actually seen here on April 14 and x-ray (unknown) (no (unknown) (unknown) pain (units (unkno wn) date) unknown) (unknown) (no (unknown) (unknown) pain and (units (unkno wn) date) pressure. Says it unknown) hurts when he moves. No nausea vomiting fever. No (unknown) (no (unknown) (unknown) pain. (units (unkno wn) date) unknown) (unknown) (no (unknown) (unknown) prior trauma.? (units (unknown) date) Consider follow-up unknown) hepatic protocol MR. (unknown) (no (unknown) (unknown) radiation dose (units (unknown) date) reduction, the unknown) following was used:? automated exposure control, (unknown) (no (unknown) (unknown) reflect (units (unkno wn) date) unknown) (unknown) (no (unknown) (unknown) resolving (units (unkn own) date) posttraumatic unknown) seroma.? Follow-up MR could also evaluate as well.? (unknown) (no (unknown) (unknown) the lung (units (unkno wn) date) unknown) (unknown) (no (unknown) (unknown) was ordered from (units (unknown) date) the waiting room unknown) however he left without results and without (unknown) (no (unknown) (unknown) without (units (unkno wn) date) unknown) Result panel 10 (unknown) (no (unknown) (unknown) (no value) (units (unk nown) date) unknown) (unknown) (no (unknown) (unknown) Radiologist's (units ( unknown) date) Impression: unknown) (unknown) (no (unknown) (unknown) (no value) (units (unk nown) date) unknown) (unknown) (no (unknown) (unknown) Date of Service: (units (unknown) date) 04/20/22 unknown) (unknown) (no (unknown) (unknown) (no value) (units (unk nown) date) unknown) (unknown) (no (unknown) (unknown) <Electronically (units (unknown) date) signed by Jessica unknownFlex Aaron D.O.> (unknown) (no (unknown) (unknown) 04/20/22 17:42 (units (unknown) date) unknown) (unknown) (no (unknown) (unknown) 04/21/22 0908 (units ( unknown) date) unknown) (unknown) (no (unknown) (unknown) 10 g PO TID PRN (units (unknown) date) (Reason: unknown) constipation) Qty: 237 0RF (unknown) (no (unknown) (unknown) Allergies (units (unkn own) date) unknown) (unknown) (no (unknown) (unknown) CT Scan Report (units (unknown) date) unknown) (unknown) (no (unknown) (unknown) Documented by: (units (unknown) date) [email or web address] unknown) (unknown) (no (unknown) (unknown) Documented by: (units (unknown) date) CARSON unknown) (unknown) (no (unknown) (unknown) Emergency Report (units (unknown) date) unknown) (unknown) (no (unknown) (unknown) [facility] (units (unknown) date) [address] [place] [address] unknown) [place] [address] (unknown) (no (unknown) (unknown) Lab Results (units (un known) date) unknown) (unknown) (no (unknown) (unknown) Last Admin: (units (un known) date) 04/20/22 18:05 unknown) Dose: 0.5 mg (unknown) (no (unknown) (unknown) Last Admin: (units (un known) date) 04/20/22 19:43 unknown) Dose: 300 ml (unknown) (no (unknown) (unknown) Previous Rx's (units ( unknown) date) unknown) (unknown) (no (unknown) (unknown) Signed (units (unkno wn) date) unknown) (unknown) (no (unknown) (unknown) Stop: 04/20/22 (units (unknown) date) 17:59 unknown) (unknown) (no (unknown) (unknown) Stop: 04/20/22 (units (unknown) date) 18:52 unknown) (unknown) (no (unknown) (unknown) Vital Signs - 8 (units (unknown) date) hr unknown) (unknown) (no (unknown) (unknown) (no value) (units (unk nown) date) unknown) (unknown) (no (unknown) (unknown) 04/20/22 04/20/22 (units (unknown) date) 04/20/22 unknown) Range/Units (unknown) (no (unknown) (unknown) 17:42 17:42 17:42 (units (unknown) date) unknown) (unknown) (no (unknown) (unknown) lactulose 10 (units (u nknown) date) gram/15 mL unknown) solution (unknown) (no (unknown) (unknown) 04/20/22 (units (unkno wn) date) unknown) (unknown) (no (unknown) (unknown) Constipation, (units ( unknown) date) Liver mass unknown) (unknown) (no (unknown) (unknown) Medication (units (unk nown) date) Instructions unknown) Recorded (unknown) (no (unknown) (unknown) include (units (unkno wn) date) unknown) (unknown) (no (unknown) (unknown) movement and has (units (unknown) date) been unable to do unknown) so. We will send him home with lactulose. (unknown) (no (unknown) (unknown) *Continue to take (units (unknown) date) medications as unknown) directed (unknown) (no (unknown) (unknown) *Follow up with (units (unknown) date) your primary care unknown) provider in 2-3 days or call [phone] (unknown) (no (unknown) (unknown) *Return to ER if (units (unknown) date) you should have unknown) increasing abdominal pain, vomiting, fever (unknown) (no (unknown) (unknown) *What to do: At (units (unknown) date) this time here CT unknown) scan does show a spot on her liver which (unknown) (no (unknown) (unknown) *You have been (units (unknown) date) diagnosed with unknown) constipation (unknown) (no (unknown) (unknown) [id number] (units (unkno wn) date) unknown) (unknown) (no (unknown) (unknown) 1. Low-density (units ( unknown) date) hepatic lesion is unknown) suspicious for neoplasm, but differential would (unknown) (no (unknown) (unknown) 12 point review (units (unknown) date) of systems is unknown) negative except for those stated above and HPI (unknown) (no (unknown) (unknown) 16:57 (units (unkno wn) date) unknown) (unknown) (no (unknown) (unknown) 2. Low-density (units (unknown) date) splenic lesion is unknown) smaller than the prior exam in March (unknown) (no (unknown) (unknown) 3. Ventral (units (unk nown) date) hernias have unknown) increased in size and now contain loops of small bowel (unknown) (no (unknown) (unknown) 56-year-old Male (units (unknown) date) history of unknown) obstruction presenting today with abdominal pain (unknown) (no (unknown) (unknown) 7.2 cm (units (unkno wn) date) unknown) (unknown) (no (unknown) (unknown) ? (units (unkno wn) date) unknown) (unknown) (no (unknown) (unknown) ABDOMEN: (units (unkno wn) date) unknown) (unknown) (no (unknown) (unknown) ABDOMEN: (units (unkno wn) date) Vertical scar unknown) noted ventral hernia reducible distension increased (unknown) (no (unknown) (unknown) ALT 22 (<50) (units (unknown) date) IU/L unknown) (unknown) (no (unknown) (unknown) AST 23 (units (unkno wn) date) (17-59) IU/L unknown) (unknown) (no (unknown) (unknown) Abdominal Nodes:? (units (unknown) date) No retroperitoneal unknown) or mesenteric adenopathy by size criteria.? (unknown) (no (unknown) (unknown) Accession Number: (units (unknown) date) [id number] ?? unknown) (unknown) (no (unknown) (unknown) Acct:[id number] (units (unknown) date) unknown) (unknown) (no (unknown) (unknown) Activity (units (unkno wn) date) Restrictions/Addit unknown) ional Instructions: (unknown) (no (unknown) (unknown) Adrenal Glands:? (units (unknown) date) Unremarkable.? ? unknown) (unknown) (no (unknown) (unknown) After the (units (unkn own) date) administration of unknown) intravenous contrast, axial sections acquired from (unknown) (no (unknown) (unknown) Age/Sex: 56 / M (units (unknown) date) unknown) (unknown) (no (unknown) (unknown) Age/Sex: 56 / M (units (unknown) date) unknown) (unknown) (no (unknown) (unknown) Albumin 3.7 (units ( unknown) date) (3.5-5.0) g/dL unknown) (unknown) (no (unknown) (unknown) Albumin/Globulin (units (unknown) date) Ratio 1.5 unknown) (1.0-2.8) (unknown) (no (unknown) (unknown) Alcohol type: (units ( unknown) date) beer unknown) (unknown) (no (unknown) (unknown) Alkaline (units (unkno wn) date) Phosphatase 70 unknown) (38-126) U/L (unknown) (no (unknown) (unknown) Allergy/AdvReac (units (unknown) date) Type Severity unknown) Reaction Status Date / Time (unknown) (no (unknown) (unknown) And previously it (units (unknown) date) patient says that unknown) he ate a bunch of baking soda and ?blew (unknown) (no (unknown) (unknown) Approved by: Ramírez (units (unknown) date) Juliet Pulido on unknown) 04/20/2022 at 17:18? (unknown) (no (unknown) (unknown) BUN 14 (9-20) (units (unknown) date) mg/dL unknown) (unknown) (no (unknown) (unknown) BUN/Creatinine (units (unknown) date) Ratio 14.3 unknown) (6-22) (unknown) (no (unknown) (unknown) Tiffany Holbrook, (units (unknown) date) [Primary Care unknown) Provider] - (unknown) (no (unknown) (unknown) Baso # (Auto) 0 (units (unknown) date) (0-100) /uL unknown) (unknown) (no (unknown) (unknown) Baso % (Auto) (units ( unknown) date) 0.5 (0-2) % unknown) (unknown) (no (unknown) (unknown) Biliary ducts:? (units (unknown) date) Unremarkable.? ? unknown) (unknown) (no (unknown) (unknown) Bladder:? (units (unkn own) date) Unremarkable.? ? unknown) (unknown) (no (unknown) (unknown) Blood Pressure (units (unknown) date) 107/61 04/20/22 unknown) 16:57 (unknown) (no (unknown) (unknown) Blood Pressure (units (unknown) date) 107/61 unknown) (unknown) (no (unknown) (unknown) Bones:? (units (unkno wn) date) Unremarkable.? ? unknown) (unknown) (no (unknown) (unknown) CARDIOVASCULAR: (units (unknown) date) Denies chest pain, unknown) palpitations, orthopnea, edema (unknown) (no (unknown) (unknown) CARDIOVASCULAR: (units (unknown) date) Regular rate and unknown) rhythm without murmurs, rubs or gallops. (unknown) (no (unknown) (unknown) COMPARISON:? (units (u nknown) date) [facility] unknown) [facility], CT, CT [facility], 01/15/2021, 22:33. (unknown) (no (unknown) (unknown) CT scan - (units (unkn own) date) abdomen/pelvis: unknown) (unknown) (no (unknown) (unknown) Calcium 8.5 (units ( unknown) date) (8.4-10.2) mg/dL unknown) (unknown) (no (unknown) (unknown) Carbon Dioxide (units (unknown) date) 25 (22-32) unknown) mmol/L (unknown) (no (unknown) (unknown) Chief Complaint: (units (unknown) date) Abdominal Pain unknown) (unknown) (no (unknown) (unknown) Chloride 105 (units (unknown) date) (98-107) mmol/L unknown) (unknown) (no (unknown) (unknown) Clinical (units (unkno wn) date) Impression: unknown) (unknown) (no (unknown) (unknown) Course (units (unkno wn) date) unknown) (unknown) (no (unknown) (unknown) Creatinine 0.98 (units (unknown) date) (0.66-1.25) unknown) mg/dL (unknown) (no (unknown) (unknown) : 1965 (units (unknown) date) Acct:[id number] unknown) (unknown) (no (unknown) (unknown) : 1965 (units (unknown) date) unknown) (unknown) (no (unknown) (unknown) Date of Service: (units (unknown) date) 04/20/22 unknown) (unknown) (no (unknown) (unknown) Departure (units (unkn own) date) unknown) (unknown) (no (unknown) (unknown) Discharge Plan (units (unknown) date) unknown) (unknown) (no (unknown) (unknown) Discontinued (units (u nknown) date) Medications unknown) (unknown) (no (unknown) (unknown) ER Physician: (units ( unknown) date) Jessica Aaron unknown) D.O. (unknown) (no (unknown) (unknown) EXTREMITIES: (units (u nknown) date) Normal range of unknown) motion, no clubbing or edema. Neurovascularly (unknown) (no (unknown) (unknown) Eos # (Auto) 200 (units (unknown) date) (0-450) /uL unknown) (unknown) (no (unknown) (unknown) Eos % (Auto) 2.8 (units (unknown) date) (2-4) % unknown) (unknown) (no (unknown) (unknown) Estimated GFR > (units (unknown) date) 60 (>60) mL/min unknown) (unknown) (no (unknown) (unknown) Exam (units (unkno wn) date) unknown) (unknown) (no (unknown) (unknown) FINDINGS:? (units (unk nown) date) unknown) (unknown) (no (unknown) (unknown) For (units (unkno wn) date) unknown) (unknown) (no (unknown) (unknown) GASTROINTESTINAL: (units (unknown) date) See HPI unknown) (unknown) (no (unknown) (unknown) GENERAL: Alert (units (unknown) date) 56-year-old male unknown) acute distress (unknown) (no (unknown) (unknown) GENERAL: Denies (units (unknown) date) chills, fatigue, unknown) malaise, fever, sweats, travel (unknown) (no (unknown) (unknown) : Denies (units (unkn own) date) dysuria, unknown) frequency, incontinence, hematuria, urinary retention, flank (unknown) (no (unknown) (unknown) Gallbladder:? (units ( unknown) date) Unremarkable.? ? unknown) (unknown) (no (unknown) (unknown) General (units (unkno wn) date) unknown) (unknown) (no (unknown) (unknown) GenericComposite[ (units (unknown) date) Plt Count 320 unknown) (150-400) X10^3/uL ] (unknown) (no (unknown) (unknown) GenericComposite[ (units (unknown) date) RBC 4.06 L unknown) (4.5-5.9) X10^6/uL ] (unknown) (no (unknown) (unknown) GenericComposite[ (units (unknown) date) WBC 6.1 unknown) (4.5-11.0) X10^3/uL ] (unknown) (no (unknown) (unknown) Globulin 2.5 (units (unknown) date) (1.7-4.1) g/dL unknown) (unknown) (no (unknown) (unknown) Glucose 89 (units (u nknown) date) (70-100) mg/dL unknown) (unknown) (no (unknown) (unknown) HEENT: Denies (units ( unknown) date) sinus pain, ear unknown) pain, sore throat, difficulty swallowing, neck (unknown) (no (unknown) (unknown) HEENT: Head (units (un known) date) atraumatic,EOMI, unknown) pupils reactive, face symmetric, [moist] mucous (unknown) (no (unknown) (unknown) HPI - Abdominal (units (unknown) date) Pain unknown) (unknown) (no (unknown) (unknown) HPI narrative: (units (unknown) date) unknown) (unknown) (no (unknown) (unknown) Hct 35.3 L (units (un known) date) (41-53) % unknown) (unknown) (no (unknown) (unknown) Heart:? No (units (unk nown) date) significant unknown) findings. (unknown) (no (unknown) (unknown) Hgb 11.9 L (units (un known) date) (13.5-17.5) g/dL unknown) (unknown) (no (unknown) (unknown) History of (units (unk nown) date) Present Illness unknown) (unknown) (no (unknown) (unknown) Hydromorphone HCl (units (unknown) date) (Hydromorphone 1 unknown) Mg Inj) 1 mg IV NOW ONE (unknown) (no (unknown) (unknown) Hyperlipidemia (units (unknown) date) unknown) (unknown) (no (unknown) (unknown) Hypertension (units (u nknown) date) unknown) (unknown) (no (unknown) (unknown) IMPRESSION:? (units (u nknown) date) unknown) (unknown) (no (unknown) (unknown) INDICATIONS:? (units ( unknown) date) distention unknown) (unknown) (no (unknown) (unknown) Image quality:? (units (unknown) date) Excellent.? unknown) (unknown) (no (unknown) (unknown) Imaging Data (units (u nknown) date) unknown) (unknown) (no (unknown) (unknown) Increase fluid (units (unknown) date) intake. Walk, unknown) this will help stimulate your bowels (unknown) (no (unknown) (unknown) Initial Vital (units ( unknown) date) Signs unknown) (unknown) (no (unknown) (unknown) Initial Vital (units ( unknown) date) Signs: unknown) (unknown) (no (unknown) (unknown) Instructions: DI (units (unknown) date) for Constipation unknown) (unknown) (no (unknown) (unknown) Kidneys and (units (un known) date) Ureters:? unknown) Nonobstructive 4 mm right renal calculus.? No (unknown) (no (unknown) (unknown) Lab Data (units (unkno wn) date) unknown) (unknown) (no (unknown) (unknown) Labs: (units (unkno wn) date) unknown) (unknown) (no (unknown) (unknown) Lactate 1.7 (units (unknown) date) (0.7-2.1) mmol/L unknown) (unknown) (no (unknown) (unknown) Lactulose 3 times (units (unknown) date) a day as needed unknown) for constipation, once you have a bowel (unknown) (no (unknown) (unknown) Lipase 44 D (units (unknown) date) (23-300) U/L unknown) (unknown) (no (unknown) (unknown) Liver:? There is (units (unknown) date) a 6.3 x 5.2 cm unknown) hypodense lesion in the left hepatic lobe (unknown) (no (unknown) (unknown) Loc: ED (units (unkno wn) date) unknown) (unknown) (no (unknown) (unknown) Lung bases:? (units (u nknown) date) Unremarkable. unknown) (unknown) (no (unknown) (unknown) Lymph # (Auto) (units (unknown) date) 1700 unknown) (2669-6699) /uL (unknown) (no (unknown) (unknown) Lymph % (Auto) (units (unknown) date) 27.9 (25-40) % unknown) (unknown) (no (unknown) (unknown) MCH 29.4 (units (unkn own) date) (26-34) PG unknown) (unknown) (no (unknown) (unknown) MCHC 33.8 (units (unk nown) date) (30-36) % unknown) (unknown) (no (unknown) (unknown) MCV 86.9 (units (unkn own) date) (80-100) fL unknown) (unknown) (no (unknown) (unknown) MDM - Abdominal (units (unknown) date) Pain unknown) (unknown) (no (unknown) (unknown) MDM Narrative (units ( unknown) date) unknown) (unknown) (no (unknown) (unknown) MR#: [id number] (units (unknown) date) unknown) (unknown) (no (unknown) (unknown) MUSCULOSKELETAL: (units (unknown) date) Denies weakness, unknown) joint pain, or bony pain (unknown) (no (unknown) (unknown) Magnesium Citrate (units (unknown) date) (Magnesium Citrate unknown) 300 Ml Solution) 300 ml PO NOW ONE (unknown) (no (unknown) (unknown) Medical History (units (unknown) date) (Reviewed 09/09/21 unknown) @ 10:01 by Avelino Lawton DO) (unknown) (no (unknown) (unknown) Medical decision (units (unknown) date) making narrative: unknown) (unknown) (no (unknown) (unknown) Mild (units (unkno wn) date) unknown) (unknown) (no (unknown) (unknown) Miscellaneous: No (units (unknown) date) hernias are seen. unknown) ? ? (unknown) (no (unknown) (unknown) Mode of arrival: (units (unknown) date) Wheelchair unknown) (unknown) (no (unknown) (unknown) [place] # (Auto) (units ( unknown) date) 500 (0-900) unknown) /uL (unknown) (no (unknown) (unknown) [place] % (Auto) (units ( unknown) date) 7.4 (3-14) % unknown) (unknown) (no (unknown) (unknown) NEUROLOGIC: (units (un known) date) Denies weakness, unknown) dizziness, headache, numbness, change in speech, (unknown) (no (unknown) (unknown) NEUROLOGICAL: (units ( unknown) date) Alert and oriented unknown) x4.Normal gait and speech. (unknown) (no (unknown) (unknown) Narrative: (units (unk nown) date) unknown) (unknown) (no (unknown) (unknown) Neut # (Auto) (units ( unknown) date) 3800 unknown) (2815-2521) /uL (unknown) (no (unknown) (unknown) Neut % (Auto) (units ( unknown) date) 61.4 (50-75) % unknown) (unknown) (no (unknown) (unknown) New (units (unkno wn) date) unknown) (unknown) (no (unknown) (unknown) No Known Drug (units ( unknown) date) Allergies Allergy unknown) Verified 04/20/22 17:00 (unknown) (no (unknown) (unknown) Ordered: (units (unkno wn) date) unknown) (unknown) (no (unknown) (unknown) Ordering (units (unkno wn) date) Provider: unknown) Jessica Aaron D.O. (unknown) (no (unknown) (unknown) Orders (units (unkno wn) date) unknown) (unknown) (no (unknown) (unknown) PELVIS: (units (unkno wn) date) unknown) (unknown) (no (unknown) (unknown) PROCEDURE:? CT (units (unknown) date) ABDOMEN PELVIS W unknown) CON (unknown) (no (unknown) (unknown) PSYCHIATRIC: No (units (unknown) date) concerning unknown) psychosocial issues. (unknown) (no (unknown) (unknown) Pancreas:? (units (unk nown) date) Unremarkable.? ? unknown) (unknown) (no (unknown) (unknown) Patient (units (unkno wn) date) Disposition: Home unknown) (unknown) (no (unknown) (unknown) Patient History (units (unknown) date) unknown) (unknown) (no (unknown) (unknown) Patient's blood (units (unknown) date) work is overall unknown) reassuring. Patient says he feels full he is (unknown) (no (unknown) (unknown) Patient: (units (unkno wn) date) Milton Kaiser unknown) MR#: [id number] (unknown) (no (unknown) (unknown) Patient: (units (unkno wn) date) Milton Kaiser unknown) (unknown) (no (unknown) (unknown) Pelvic Nodes: No (units (unknown) date) enlarged lymph unknown) nodes.? (unknown) (no (unknown) (unknown) Pelvic Organs:? (units (unknown) date) Unremarkable.? ? unknown) (unknown) (no (unknown) (unknown) Peritoneum:? No (units (unknown) date) abnormal unknown) intraperitoneal fluid.? No free air.? (unknown) (no (unknown) (unknown) Potassium 4.1 (units (unknown) date) (3.4-5.1) mmol/L unknown) (unknown) (no (unknown) (unknown) Prescriptions: (units (unknown) date) unknown) (unknown) (no (unknown) (unknown) Procedure: CT (units ( unknown) date) abdomen pelvis w unknown) con (unknown) (no (unknown) (unknown) Pulse Oximetry (units (unknown) date) 98 04/20/22 unknown) 16:57 (unknown) (no (unknown) (unknown) Pulse Oximetry 98 (units (unknown) date) unknown) (unknown) (no (unknown) (unknown) Pulse Rate 104 H (units (unknown) date) 04/20/22 16:57 unknown) (unknown) (no (unknown) (unknown) Pulse Rate 104 H (units (unknown) date) unknown) (unknown) (no (unknown) (unknown) RDW 13.9 (units (unkn own) date) (11.6-14.8) % unknown) (unknown) (no (unknown) (unknown) RESPIRATORY: (units (u nknown) date) Breath sounds unknown) equal bilaterally, no wheezes rales or rhonchi. (unknown) (no (unknown) (unknown) RESPIRATORY: (units (u nknown) date) Denies dyspnea, unknown) cough, wheezing, hemoptysis, sputum. (unknown) (no (unknown) (unknown) Referrals: (units (unk nown) date) unknown) (unknown) (no (unknown) (unknown) Related Data (units (u nknown) date) unknown) (unknown) (no (unknown) (unknown) Respiratory Rate (units (unknown) date) 16 04/20/22 unknown) 16:57 (unknown) (no (unknown) (unknown) Respiratory Rate (units (unknown) date) 16 unknown) (unknown) (no (unknown) (unknown) Result diagrams: (units (unknown) date) unknown) (unknown) (no (unknown) (unknown) Review of Systems (units (unknown) date) unknown) (unknown) (no (unknown) (unknown) SKIN: No rash, no (units (unknown) date) erythema, no unknown) pruritus (unknown) (no (unknown) (unknown) SKIN: Warm, dry, (units (unknown) date) no laceration, no unknown) petechiae, no rashes or lesions. (unknown) (no (unknown) (unknown) Schizophrenia (units ( unknown) date) unknown) (unknown) (no (unknown) (unknown) Signed By: (units (unk nown) date) unknown) (unknown) (no (unknown) (unknown) Smoking Status: (units (unknown) date) Current every day unknown) smoker (unknown) (no (unknown) (unknown) Smoking Status: (units (unknown) date) Current every day unknown) smoker (unknown) (no (unknown) (unknown) Social History (units (unknown) date) (Reviewed 09/09/21 unknown) @ 10:01 by Avelino Lawton DO) (unknown) (no (unknown) (unknown) Sodium 139 (units (u nknown) date) (137-145) mmol/L unknown) (unknown) (no (unknown) (unknown) Spleen:? (units (unkno wn) date) Low-density unknown) splenic lesion measures 3.5 x 5.2 cm in, previously 4.8 x (unknown) (no (unknown) (unknown) Stated Complaint: (units (unknown) date) ABD pain unknown) (unknown) (no (unknown) (unknown) Stomach and (units (un known) date) Bowel:? Stomach, unknown) small bowel loops, and colon are unremarkable.? (unknown) (no (unknown) (unknown) Substance Use (units ( unknown) date) Type: marijuana unknown) (unknown) (no (unknown) (unknown) TECHNIQUE:? (units (un known) date) unknown) (unknown) (no (unknown) (unknown) Temperature 96.7 (units (unknown) date) F L 04/20/22 unknown) 16:57 (unknown) (no (unknown) (unknown) Temperature 96.7 (units (unknown) date) F L unknown) (unknown) (no (unknown) (unknown) Time Seen by (units (u nknown) date) Provider: 04/20/22 unknown) 17:05 (unknown) (no (unknown) (unknown) Total Bilirubin (units (unknown) date) 0.6 (0.2-1.3) unknown) mg/dL (unknown) (no (unknown) (unknown) Total Protein (units ( unknown) date) 6.2 L (6.3-8.2) unknown) g/dL (unknown) (no (unknown) (unknown) Ventral Wall:? (units (unknown) date) Several prior unknown) umbilical ventral hernias contain fat and bowel (unknown) (no (unknown) (unknown) Vessels:? Aorta (units (unknown) date) and inferior vena unknown) cava are normal in size.? (unknown) (no (unknown) (unknown) Vital Signs (units (un known) date) unknown) (unknown) (no (unknown) (unknown) Vital signs: (units (u nknown) date) unknown) (unknown) (no (unknown) (unknown) [Embedded Image (units (unknown) date) Not Available] unknown) (unknown) (no (unknown) (unknown) adjacent to the (units (unknown) date) unknown) (unknown) (no (unknown) (unknown) adjustment (units (unk nown) date) unknown) (unknown) (no (unknown) (unknown) alcohol intake (units (unknown) date) frequency: 0-2 unknown) drinks per day (unknown) (no (unknown) (unknown) bases to the (units (u nknown) date) pubic symphysis.? unknown) Coronal and sagittal reformats were performed.? (unknown) (no (unknown) (unknown) being seen. Mild (units (unknown) date) to moderate amount unknown) of stool within the colon without (unknown) (no (unknown) (unknown) bilaterally (units (un known) date) unknown) (unknown) (no (unknown) (unknown) bowel sounds no (units (unknown) date) localization of unknown) pain (unknown) (no (unknown) (unknown) chest pain or any (units (unknown) date) new, worsening or unknown) concerning symptoms (unknown) (no (unknown) (unknown) chest pain or (units ( unknown) date) palpitations. He unknown) has a known ventral hernia. (unknown) (no (unknown) (unknown) confusion (units (unkn own) date) unknown) (unknown) (no (unknown) (unknown) discussed this (units (unknown) date) with him and his unknown) that it does need close follow-up. He is (unknown) (no (unknown) (unknown) diverticulosis (units (unknown) date) without evidence unknown) of diverticulitis. (unknown) (no (unknown) (unknown) evidence of (units (un known) date) obstruction. unknown) (unknown) (no (unknown) (unknown) falciform (units (unkn own) date) ligament. unknown) (unknown) (no (unknown) (unknown) feels like he has (units (unknown) date) a history with unknown) full. Presents again today with increasing (unknown) (no (unknown) (unknown) having bouts of (units (unknown) date) pain but does not unknown) need any pain medication. He complains that (unknown) (no (unknown) (unknown) he has not had (units (unknown) date) any bowel movement unknown) for number of days. CT does not show (unknown) (no (unknown) (unknown) himself up ?and (units (unknown) date) needed surgery. unknown) (unknown) (no (unknown) (unknown) hydronephrosis (units (unknown) date) unknown) (unknown) (no (unknown) (unknown) intact (units (unkno wn) date) unknown) (unknown) (no (unknown) (unknown) lactulose 10 (units (u nknown) date) gram/15 mL oral 10 unknown) g (15 mL) PO TID PRN #237 ml 04/20/22 (unknown) (no (unknown) (unknown) membranes (units (unkn own) date) unknown) (unknown) (no (unknown) (unknown) movement do not (units (unknown) date) take anymore unknown) (unknown) (no (unknown) (unknown) needs close (units (un known) date) follow-up. You unknown) need to be sure that it is not cancer (unknown) (no (unknown) (unknown) obstruction. He (units (unknown) date) states he has not unknown) had a bowel movement in over a week. He (unknown) (no (unknown) (unknown) obstruction.? (units ( unknown) date) unknown) (unknown) (no (unknown) (unknown) of mA and/or kV (units (unknown) date) according to unknown) patient size.? (unknown) (no (unknown) (unknown) ongoing for at (units (unknown) date) least a week. He unknown) was actually seen here on April 14 and x-ray (unknown) (no (unknown) (unknown) pain (units (unkno wn) date) unknown) (unknown) (no (unknown) (unknown) pain and (units (unkno wn) date) pressure. Says it unknown) hurts when he moves. No nausea vomiting fever. No (unknown) (no (unknown) (unknown) pain. (units (unkno wn) date) unknown) (unknown) (no (unknown) (unknown) prior trauma.? (units (unknown) date) Consider follow-up unknown) hepatic protocol MR. (unknown) (no (unknown) (unknown) radiation dose (units (unknown) date) reduction, the unknown) following was used:? automated exposure control, (unknown) (no (unknown) (unknown) reflect (units (unkno wn) date) unknown) (unknown) (no (unknown) (unknown) resolving (units (unkn own) date) posttraumatic unknown) seroma.? Follow-up MR could also evaluate as well.? (unknown) (no (unknown) (unknown) says that he is (units (unknown) date) taking whole sort unknown) of medication [id number] to have a bowel (unknown) (no (unknown) (unknown) significant fecal (units (unknown) date) load. It does unknown) show that he has small area on his liver. I (unknown) (no (unknown) (unknown) solution (units (unkno wn) date) unknown) (unknown) (no (unknown) (unknown) the lung (units (unkno wn) date) unknown) (unknown) (no (unknown) (unknown) was ordered from (units (unknown) date) the waiting room unknown) however he left without results and without (unknown) (no (unknown) (unknown) without (units (unkno wn) date) unknown) Social History date description facility (no date) Smokes tobacco daily (finding) [facility] Vital Signs date measurement value units +0000 BP_diastolic BP_diastolic 91 mm[H g] [id number]+0000 BP_systolic BP_systolic 145 mm[Hg] [id number]+0000 heart_rate heart_rate 94 /min [id number]+0000 respiration_rate respiration_rate 22 /min [id number]+0000 temperature_metric temperature_metric 36.78 C [id number] temperature_standard temperature_standard 9 8.2 F [id number]+0000 weight_metric weight_metric 45.26 kg [id number] weight_standard weight_standard 99.79 lb +0000 BMI BMI 28.7 kg/m2 +0000 BP_diastolic BP_diastolic 78 mm[H g] +0000 BP_systolic BP_systolic 105 mm[Hg] +0000 heart_rate heart_rate 98 /min +0000 height_metric height_metric 177.8 cm +0000 height_standard height_standard 70 in +0000 respiration_rate respiration_rate 16 /min +0000 temperature_metric temperature_metric 35.94 C +0000 temperature_standard temperature_standard 9 6.7 F [id number]+0000 weight_metric weight_metric 41.15 kg [id number] weight_standard weight_standard 90.72 lb
== END 2022-05-20 15:00 | disposition home or self-care (01) ==
LOC: ED 11:22
DX: R10.9 Unspecified abdominal pain (principal); F17.200 Nicotine dependence, unspecified, uncomplicated; I10 Essential (primary) hypertension
CPT/HCPCS: 36415; 74176; 80053; 81003; 83690; 85025; 99284; A9270; 81001; 87086

== ENCOUNTER 2022-07-03 15:02 | Outpatient (CLI) | payer MEDICAID | END 2022-07-03 15:03 | disposition home or self-care (01) | LOC: LAB.N 15:02 | PROVIDERS: ATTEND Internal Medicine Gastroenterology | DX: K59.00 Constipation, unspecified (principal); R10.84 Generalized abdominal pain; K76.9 Liver disease, unspecified; Z20.822 Contact with and (suspected) exposure to COVID-19 ==

== ENCOUNTER 2022-07-29 09:46 | Emergency (ER) | payer MEDICAID ==
[2022-07-29 11:03] LABS: MUDS CUTOFF CONCENTRATIONS CUTOFF CONC BELOW:
[2022-07-29 11:05] LABS: BILIRUBIN,URINE NEGATIVE (NEGATIVE); GLUCOSE, URINE (UA) NEGATIVE (NEGATIVE); KETONES,URINE (UA) 15 mg/dL (NEGATIVE); LEUKOCYTE ESTERASE, URINE NEGATIVE (NEGATIVE); NITRITE,URINE NEGATIVE (NEGATIVE); OCCULT BLOOD,URINE NEGATIVE (NEGATIVE); PH,URINE 6.5 PH (5.0-7.5); PROTEIN,URINE NEGATIVE (NEGATIVE); UROBILINOGEN,URINE 0.2 (NORMAL) E.U./dL (NORMAL)
[2022-07-29 11:06] LABS: CLARITY,URINE CLEAR (CLEAR)
--- NOTE | 2022-07-29 11:16 | ED Physician Documentation ---
PD HPI ABD PAIN - Stated complaint Stated Complaint: BACK PX - Chief complaint Chief Complaint: Back Pain - History obtained from History obtained from: Patient - History of Present Illness Timing - onset: How many days ago (few) Timing - duration: Days (few) Timing - details: Gradual onset, Still present Quality: Cramping, Aching, Pain Location: All over / everywhere Radiation: Lower back Associated symptoms: Nausea. No: Fever, Vomiting, Diarrhea, Constipation, Dysuria Recently seen: Emergency Dept (yesterday with Rx of pain meds. Pharmacy has not opened as yet today, so no meds at home.), Surgery (had recent colonoscopy attempt but inadequate prep/cleansing so will be rescheduled. Having cramping abd pains the past couple of days. Small stool out that was soft.) Review of Systems Constitutional: denies: Fever, Chills Nose: denies: Rhinorrhea / runny nose, Congestion Throat: denies: Sore throat Respiratory: denies: Cough GI: reports: Abdominal Pain Skin: denies: Rash, Lesions Musculoskeletal: reports: Back pain PD PAST MEDICAL HISTORY - Past Medical History Cardiovascular: Hypertension, High cholesterol Respiratory: None, COPD Neuro: None, Headaches Endocrine/Autoimmune: None GI: Chronic diarrhea, Other Psych: Depression, Anxiety, Bipolar disorder, ADD/ADHD, Other Musculoskeletal: Chronic back pain - Past Surgical History Past Surgical History: Yes - Present Medications Home Medications: Ambulatory Orders Medication Instructions Recorded Confirmed Losartan Potassium 100 mg PO DAILY 09/14/19 05/20/22 Atorvastatin [Lipitor] 20 mg PO DAILY 04/21/22 05/20/22 Dicyclomine [Bentyl] 10 - 20 mg PO QID PRN #30 cap 04/21/22 05/20/22 Trazodone HCl 100 mg PO DAILY PM 04/21/22 05/20/22 lamoTRIgine [Lamictal] 25 mg PO DAILY 04/21/22 05/20/22 Oxycodone HCl/Acetaminophen 1 - 2 each PO Q6H PRN #10 tablet 05/20/22 [Percocet 5-325 mg Tablet] Dicyclomine [Bentyl] 20 mg PO QID PRN #30 cap 07/28/22 Ondansetron Odt [Zofran] 4 mg TL Q6H PRN #10 tablet 07/29/22 - Allergies Allergies/Adverse Reactions: Allergies Allergy/AdvReac Type Severity Reaction Status Date / Time codeine AdvReac Cramps Verified 07/29/22 09:55 - Social History Does the pt smoke?: Yes Smoking Status: Current every day smoker Does the pt drink ETOH?: Yes Does the pt have substance abuse?: Yes - Immunizations Immunizations are current?: Yes - POLST Patient has POLST: No POLST Status: Full Code PD ED PE NORMAL - Vitals Vital signs reviewed: Yes - General General: Alert and oriented X 3, Well developed/nourished, Other (writhing in pain on cart. ) - Neck Neck: Supple, no meningeal sign, No adenopathy - Cardiac Cardiac: RRR, No murmur - Respiratory Respiratory: Clear bilaterally - Abdomen Abdomen: Normal bowel sounds, Soft, Non distended, No organomegaly, Other (tender epigastric and left upper abd, as well at left lower abd. No guarding nor percussion tednerness. ) - Back Back: No CVA TTP, No spinal TTP - Derm Derm: Normal color, Warm and dry - Neuro Neuro: Alert and oriented X 3, No motor deficit, No sensory deficit, Normal speech Results - Vitals Vitals: Oxygen O2 Source Room air - Labs Labs: Laboratory Tests 07/29/22 10:30 Urine Color YELLOW Urine Clarity CLEAR Urine pH 6.5 Ur Specific [place] 1.020 Urine Protein NEGATIVE Urine Glucose (UA) NEGATIVE Urine Ketones 15 H Urine Occult Blood NEGATIVE Urine Nitrite NEGATIVE Urine Bilirubin NEGATIVE Urine Urobilinogen 0.2 (NORMAL) Ur Leukocyte Esterase NEGATIVE Ur Microscopic Review NOT INDICATED Urine Culture Comments NOT INDICATED Urine Opiates Screen POSITIVE H Ur Oxycodone Screen NEGATIVE Urine Methadone Screen NEGATIVE Ur Propoxyphene Screen NEGATIVE Ur Barbiturates Screen NEGATIVE Ur Tricyclics Screen NEGATIVE Ur Phencyclidine Scrn NEGATIVE Ur Amphetamine Screen POSITIVE H U Methamphetamines Scrn POSITIVE H U Benzodiazepines Scrn NEGATIVE Urine Cocaine Screen NEGATIVE U Cannabinoids Screen POSITIVE H PD MEDICAL DECISION MAKING - ED course Complexity details: reviewed old records, reviewed results, considered differential, d/w patient Departure - Departure Disposition: 01 Home, Self Care Clinical Impression: Abdominal pain Qualifiers: Abdominal location: lower abdomen, unspecified Qualified Code(s): R10.30 - Lower abdominal pain, unspecified Condition: Stable Record reviewed to determine appropriate education?: Yes Follow-Up: Deja Brower ARNP [Primary Care Provider] - Prescriptions: Ondansetron Odt [Zofran] 4 mg TL Q6H PRN #10 tablet PRN Reason: Nausea / Vomiting Comments: There should be a prescription available for you for an antispasmodic medicine that seemed to help yesterday. I wrote a prescription for nausea medicine if you needed as well. Add Tylenol every 4-6 hours if needed for pains. Return as needed if not improved over the next few days. Follow-up with your primary care. Discharge Date/Time: 07/29/22 13:37
[2022-07-29 11:18] LABS: THC CANNABINOID SCREEN, URINE POSITIVE (NEGATIVE)
[2022-07-29 11:19] LABS: AMPHETAMINE SCREEN,URINE POSITIVE (NEGATIVE); METHAMPHETAMINES SCREEN, URINE POSITIVE (NEGATIVE); OPIATE SCREEN, URINE POSITIVE (NEGATIVE)
[2022-07-29 11:22] LABS: BENZODIAZEPINES SCREEN, URINE NEGATIVE (NEGATIVE); COCAINE SCREEN URINE NEGATIVE (NEGATIVE)
[2022-07-29 11:23] LABS: BARBITURATE SCREEN,UR NEGATIVE (NEGATIVE); METHADONE SCREEN, URINE NEGATIVE (NEGATIVE); OXYCODONE SCREEN, URINE NEGATIVE (NEGATIVE); PROPOXYPHENE SCREEN, URINE NEGATIVE (NEGATIVE); TRICYCLIC ANTIDEPRESSANT,URINE NEGATIVE (NEGATIVE)
[2022-07-29] MEDS ORDERED: SODIUM CHLORIDE 0.9% 1,000 ML IV STA (11:31)
[2022-07-29] MEDS ORDERED: KETOROLAC 15 MG/ML VIAL IVP STA (11:31)
[2022-07-29] MEDS ORDERED: HYDROmorphone 1 MG/ML CARPUJECT IVP STA (11:31)
[2022-07-29] MEDS ORDERED: DROPERIDOL 5 MG/2 ML VIAL IVP STA (11:31)
[2022-07-29 13:37] VITALS: BP 153/95
== END 2022-07-29 13:37 | disposition home or self-care (01) ==
LOC: ED 09:46
DX: R10.30 Lower abdominal pain, unspecified (principal); I10 Essential (primary) hypertension; F17.200 Nicotine dependence, unspecified, uncomplicated
CPT/HCPCS: 80306; 81003; 96374; 96375; 99282; 99283; J1170; 81001; 87086

== ENCOUNTER 2022-08-19 15:09 | Outpatient (CLI) | payer MEDICAID ==
--- NOTE | 2022-08-19 17:50 | MRI Report ---
PROCEDURE: Thoracic Spine W/O INDICATIONS: DISORDER OF TSPINE, HYPODENSITY T12 TECHNIQUE: Noncontrast sagittal T1 spine echo and T2 fast spin echo, sagittal STIR, axial T1 and T2 fast spin ec ho through the thoracic spine. COMPARISON: Correlation is made with prior chest plain film, 05/17/2021. Correlation is made with abd [facility] pelvis CT, 07/20/2022. FINDINGS: Image quality: Excellent. Alignment and Curvature: There is normal bony alignment. Bone Marrow: There is abnormal signal seen within the T12 vertebral body, which is decreased on T1-we ighted imaging, increased on STIR imaging and demonstrates heterogeneous signal on T2-weighted imagin g. Along the posterior aspect of the vertebral body, there is a focus that demonstrates increased T2- weighted and STIR signal, as on series 6 image 10 and on series 9 image 10, which measures up to 1.5 cm. There is abnormal signal seen involving both T12 pedicles, as seen on series 4 images 6 and 14. A nd on series 6 images 5 and 14. Spinal Cord: Visualized spinal cord is normal in size and signal. Paraspinous Soft Tissues: No paravertebral masses. Miscellaneous: Generalized degenerative changes are seen, with scattered levels of mild disc space na rrowing with associated endplate irregularity. Several levels of bridging endplate osteophytes can be seen, which are better demonstrated within the inferior thoracic spine on the prior CT. No significa nt central canal narrowing can be seen. No definite significant neuroforaminal narrowing can be seen. IMPRESSION: There is abnormal signal seen within the T12 vertebral body. There is at least moderate suspicion for metastatic disease. Reviewed by: Drake Diana MD on 08/19/2022 4:49 PM ANGEL Approved by: Drake Diana MD on 08/19/2022 4:49 PM ANGEL Station ID: [id number]
== END 2022-08-19 15:10 | disposition home or self-care (01) ==
LOC: DI 15:09
PROVIDERS: ATTEND Nurse Practitioner
DX: M47.814 Spondylosis without myelopathy or radiculopathy, thoracic region (principal); R93.7 Abnormal findings on diagnostic imaging of other parts of musculoskeletal system

== ENCOUNTER 2022-09-05 08:04 | Outpatient (CLI) | payer MEDICAID ==
[2022-09-05] MEDS ORDERED: LACTATED RINGERS 1,000 ML IV ONE (08:32)
[2022-09-05 08:37] LABS: BASOPHILS % (AUTO) 0.4 %; EOSINOPHILS # (AUTO) 0.1 10^3/uL (0.0-0.7); EOSINOPHILS % (AUTO) 1.2 %; HCT - HEMATOCRIT 34.1 % (42.0-52.0); HGB - HEMOGLOBIN 11.3 g/dL (14.0-18.0); LYMPHOCYTES # (AUTO) 1.5 10^3/uL (1.5-3.5); LYMPHOCYTES % (AUTO) 20.1 %; MEAN CORPUSCULAR HGB CONC 33.1 g/dL (32.0-36.0); MEAN CORPUSCULAR VOLUME 90.5 fL (80.0-94.0); MEAN PLATELET VOLUME 7.8 fL (7.4-11.4); MONOCYTES # (AUTO) 0.7 10^3/uL (0.0-1.0); MONOCYTES % (AUTO) 9.2 %; NEUTROPHILS # (AUTO) 5.2 10^3/uL (1.5-6.6); PLT - PLATELET COUNT 678 10^3/uL (130-450); RED BLOOD COUNT 3.77 10^6/uL (4.70-6.10); RED CELL DISTRIBUTION WIDTH 14.2 % (12.0-15.0); WHITE BLOOD COUNT 7.5 x10^3/uL (4.8-10.8)
[2022-09-05 08:45] LABS: PT - PROTHROMBIN TIME 11.5 secs (9.9-12.6)
[2022-09-05 08:53] LABS: PARTIAL THROMBOPLASTIN TIME 27.4 secs (24.9-33.3)
[2022-09-05] MEDS ORDERED: lidocaine 1% 20 ML MDV ONE (09:06)
[2022-09-05] MEDS ORDERED: fentaNYL 100 MCG/2 ML VIAL ONE (09:24)
[2022-09-05] MEDS ORDERED: MIDAZOLAM 2 MG/2 ML VIAL ONE (09:24)
[2022-09-05] MEDS ORDERED: LACTATED RINGERS 800 ML IV ONE (10:00)
[2022-09-05] MEDS ORDERED: lidocaine 1% 20 ML MDV SUBQ ONE (10:20)
--- NOTE | 2022-09-05 10:47 | CT Report ---
PROCEDURE: LIVER BX PERC Sedation analgesia for less than 30 minutes. INDICATIONS: LIVER M ASS TECHNIQUE: The indications, alternatives, benefits, risks, and possible complications of the procedure were comm unicated to the patient. Informed written consent from the patient was obtained and placed in the art. Continuous EKG and hemodynamic monitoring was started by trained personnel. For radiation dose reduction, the following was used: automated exposure control, adjustment of mA and/or kV according to patient size. The patient was brought to the CT suite and qa internship spiral CT imaging was performed with localization g rid. The appropriate site for percutaneous access to the biopsy target was marked, was prepped and d raped sterilely, and was infused with local anaesthesia. Under CT guidance, a core biopsy trocar and needle set was advanced to the biopsy target, and specimen(s) were obtained. The trocar and needle were then removed, and the patient was sent for post-procedure monitoring. COMPARISON: 07/28/2022 CT abdomen and pelvis FINDINGS: Biopsy site: Liver mass Needle: 18 gauge biopsy needle with introducer trocar. Number of passes: 2 Medications: 1% lidocaine for local anaesthesia. IV Fentanyl and Versed for conscious sedation for less than 30 minutes (see nursing record). Complications: None. IMPRESSION: Successful CT-guided biopsy of liver mass. Reviewed by: Nico Larios MD on 09/05/2022 10:45 AM PDT Approved by: Nico Larios MD on 09/05/2022 10:45 AM PDT Station ID: [id number]
[2022-09-05 11:44] VITALS: BP 139/82
== END 2022-09-05 08:05 | disposition home or self-care (01) ==
LOC: DI 08:04
PROVIDERS: ATTEND Nurse Practitioner
DX: C78.7 Secondary malignant neoplasm of liver and intrahepatic bile duct (principal); C80.1 Malignant (primary) neoplasm, unspecified; K72.90 Hepatic failure, unspecified without coma; F17.290 Nicotine dependence, other tobacco product, uncomplicated
CPT/HCPCS: 36415; 47000; 77012; 85025; 85610; 85730; J7120

== ENCOUNTER 2022-09-09 10:59 | Outpatient (CLI) | payer MEDICAID | END 2022-09-09 11:00 | disposition critical access hospital (66) | LOC: EMS 10:59 | DX: M54.50 Low back pain, unspecified (principal) | CPT/HCPCS: A0425; A0429 ==

== ENCOUNTER 2022-09-11 19:28 | Emergency (ER) | payer MEDICAID ==
[2022-09-11] MEDS ORDERED: HYDROmorphone 1 MG/ML CARPUJECT IVP STA (19:56)
[2022-09-11] MEDS ORDERED: LORazepam 2 MG/ML VIAL IVP STA (19:56)
[2022-09-11 19:59] LABS: BASOPHILS % (AUTO) 0.6 %; EOSINOPHILS # (AUTO) 0.1 10^3/uL (0.0-0.7); EOSINOPHILS % (AUTO) 1.1 %; HCT - HEMATOCRIT 35.7 % (42.0-52.0); HGB - HEMOGLOBIN 11.8 g/dL (14.0-18.0); LYMPHOCYTES # (AUTO) 1.5 10^3/uL (1.5-3.5); LYMPHOCYTES % (AUTO) 24.2 %; MEAN CORPUSCULAR HEMOGLOBIN 29.9 pg (27.0-31.0); MEAN CORPUSCULAR HGB CONC 33.1 g/dL (32.0-36.0); MEAN CORPUSCULAR VOLUME 90.4 fL (80.0-94.0); MEAN PLATELET VOLUME 8.3 fL (7.4-11.4); MONOCYTES # (AUTO) 0.4 10^3/uL (0.0-1.0); MONOCYTES % (AUTO) 6.6 %; NEUTROPHILS # (AUTO) 4.2 10^3/uL (1.5-6.6); NEUTROPHILS % (AUTO) 67.3 %; PLT - PLATELET COUNT 540 10^3/uL (130-450); RED BLOOD COUNT 3.95 10^6/uL (4.70-6.10); RED CELL DISTRIBUTION WIDTH 14.6 % (12.0-15.0); WHITE BLOOD COUNT 6.2 x10^3/uL (4.8-10.8)
[2022-09-11 20:11] LABS: ALBUMIN 3.7 g/dL (3.2-5.5); ALBUMIN/GLOBULIN RATIO 1.1 (1.0-2.2); BILIRUBIN,TOTAL 5.7 mg/dL (0.2-1.0); CALCIUM 9.5 mg/dL (8.5-10.3); CREATININE 0.7 mg/dL (0.6-1.2); POTASSIUM 3.5 mmol/L (3.5-5.0)
--- NOTE | 2022-09-11 21:12 | ED Physician Documentation ---
PD HPI SYNCOPE - Stated complaint Stated Complaint: SYNCOPE - Chief complaint Chief Complaint: Abd Pain - History obtained from History obtained from: Patient PD PAST MEDICAL HISTORY - Past Medical History Past Medical History: Yes Cardiovascular: Hypertension, High cholesterol Respiratory: None, COPD Neuro: None, Headaches Endocrine/Autoimmune: None GI: Chronic diarrhea, Other Psych: Depression, Anxiety, Bipolar disorder, ADD/ADHD, Other Musculoskeletal: Chronic back pain - Past Surgical History Past Surgical History: Yes - Present Medications Home Medications: Ambulatory Orders Medication Instructions Recorded Confirmed Losartan Potassium 50 mg PO DAILY 09/14/19 09/09/22 Atorvastatin [Lipitor] 20 mg PO DAILY 04/21/22 09/09/22 Dicyclomine [Bentyl] 10 - 20 mg PO QID PRN #30 cap 04/21/22 09/09/22 Trazodone HCl 100 mg PO DAILY PM 04/21/22 09/09/22 lamoTRIgine [Lamictal] 25 mg PO DAILY 04/21/22 09/09/22 Dicyclomine [Bentyl] 10 mg PO QID PRN #30 cap 09/09/22 Oxycodone HCl [Roxicodone] 5 - 10 mg PO Q6H PRN #14 tablet 09/09/22 Ondansetron Odt [Zofran] 4 mg TL Q6H PRN #10 tablet 09/11/22 oxyCODONE [Roxicodone] 5 - 10 mg PO Q6H PRN #14 tablet 09/11/22 - Allergies Allergies/Adverse Reactions: Allergies Allergy/AdvReac Type Severity Reaction Status Date / Time codeine AdvReac Cramps Verified 09/11/22 19:36 - Social History Does the pt smoke?: Yes Smoking Status: Current every day smoker Does the pt drink ETOH?: Yes Does the pt have substance abuse?: Yes - Immunizations Immunizations are current?: Yes - POLST Patient has POLST: No POLST Status: Full Code Results - Vitals Vitals: Vital Signs - 24 hr 09/11/22 09/11/22 09/11/22 19:31 20:42 21:50 Temperature 36.5 C Heart Rate 93 94 90 Respiratory 14 14 16 Rate Blood Pressure 119/78 122/89 H 130/92 H O2 Saturation 98 94 98 Oxygen O2 Source Room air - Labs Labs: Laboratory Tests 09/11/22 09/11/22 19:52 19:52 WBC 6.2 RBC 3.95 L Hgb 11.8 L Hct 35.7 L MCV 90.4 MCH 29.9 MCHC 33.1 RDW 14.6 Plt Count 540 H MPV 8.3 Neut # (Auto) 4.2 Lymph # (Auto) 1.5 [place] # (Auto) 0.4 Eos # (Auto) 0.1 Baso # (Auto) 0.0 Absolute Nucleated RBC 0.00 Nucleated RBC % 0.0 Sodium 141 Potassium 3.5 Chloride 103 Carbon Dioxide 25 Anion Gap 13.0 BUN 12 Creatinine 0.7 Estimated GFR (MDRD) 117 Glucose 99 Calcium 9.5 Total Bilirubin 5.7 H AST 268 H ALT 375 H Alkaline Phosphatase 386 H Total Protein 7.0 Albumin 3.7 Globulin 3.3 Albumin/Globulin Ratio 1.1 Lipase 34 PD MEDICAL DECISION MAKING - ED course Complexity details: reviewed old records, reviewed results, re-evaluated patient, considered differential, d/w patient ED course: I am prescribing a short course of short-acting opioid pain medication for this patient. I have reviewed the patients [employer] and no concerning findings were noted. I have discussed that the opioids are for short term therapy only, and will not be refilled from the ED Departure - Departure Disposition: 01 Home, Self Care Clinical Impression: Back pain Qualifiers: Back pain location: thoracic back pain Chronicity: unspecified Back pain laterality: midline Qualified Code(s): M54.6 - Pain in thoracic spine Abdominal pain Qualifiers: Abdominal location: generalized Qualified Code(s): R10.84 - Generalized abdominal pain Condition: Good Instructions: ED Neck Back Pain General, ED Abdominal Pain Unkn Cause Male Follow-Up: Deja Brower ARNP [Primary Care Provider] - Prescriptions: oxyCODONE [Roxicodone] 5 - 10 mg PO Q6H PRN #14 tablet PRN Reason: Pain Ondansetron Odt [Zofran] 4 mg TL Q6H PRN #10 tablet PRN Reason: Nausea / Vomiting Comments: Prescriptions for oxycodone (pain medication) and ondansetron (anti-nausea medication) have been electronically submitted to [facility] pharmacy in [place]. As we discussed, the findings on your recent MRI of your back are suspicious for possible metastasis (spread of cancer from another area of the body). The liver biopsy is consistent with metastasis as well (again, not a primary cancer but likely a cancer elsewhere that has spread to the liver). When you meet with your doctor in two days, they will review the results with you and discuss recommendations going forward regarding diagnostics, treatment, and consult (such as with an oncologist). I am prescribing a short course of narcotic pain medication for you. These are potentially dangerous and addictive medications that should be used carefully. These medications may constipate you. Take an aqgm-lkr-oypmjdg stool softener (docusate) twice daily with plenty of water while taking these medications. If you go 24 hours without a bowel movement, take uwnl-cfs-ypblbso miralax, per package instructions. Do not drink or drive while taking these medications. If you received narcotic or sedating medications while in the emergency department, do not drive for 24 hours. Store this medication in a safe, secure place and out of reach of children. It is a violation of federal law to give or sell this medication to another person or to use in a manner other than prescribed. The ED will not refill narcotic prescriptions, including prescriptions lost or stolen. To dispose of unwanted medications: 1. [facility] at [address] in [place] has a medication drop box. They accept prescription medications (in pill form) Friday through Friday 9:00 a.m. to 5:00 p.m. 2. [facility] [employer] [facility] accepts prescription medications (in pill form only) for disposal year round. Call for more information. 3. Contact the [facility] for the next [facility] sponsored prescription drug collection event. , [phone], or [phone]; Discharge Date/Time: 09/11/22 23:15
[2022-09-11] MEDS ORDERED: ONDANSETRON 4 MG/2 ML VIAL IVP STA (21:33)
[2022-09-11] MEDS ORDERED: SODIUM CHLORIDE 0.9% 1,000 ML IV STA (21:33)
[2022-09-11 21:51] VITALS: BP 130/92
[2022-09-11] MEDS ORDERED: oxyCODONE 5 MG TABLET PO STA (23:01)
--- NOTE | 2022-09-12 08:15 | ED Physician Documentation ---
PD HPI ABD PAIN - Stated complaint Stated Complaint: SYNCOPE - Chief complaint Chief Complaint: Abd Pain - History obtained from History obtained from: Patient - History of Present Illness Timing - onset: How many weeks ago (back pain is chronic; abdominal pain x few weeks) Timing - details: Waxing and waning Pain level now: 6 Quality: Pain Location: RUQ, RLQ Radiation: Other (does not radiate (back pain is separate c/o from the abdominal pain)) Worsened by: Palpation Associated symptoms: Nausea, Vomiting. No: Fever, Hematemesis, Diarrhea, Constipation, Melena, Hematochezia Recently seen: Emergency Dept - Additional information Additional information: c/o abdominal pain x few weeks , had biopsy of a liver mass 09/05 and awaiting results; patient says he has appointment with his doctor this Friday (2 days from now) to discuss results. He was T+R from this ED 2 days ago for back and abdominal pain and was found to have elevated LFTs, was prescribed oxycodone but patient says he has run out of these this afternoon. Patient tells me he has had nausea and vomiting since this afternoon "couldn't keep nothing in" (per patient). He also notes back pain which has a chronic component but has been worsening steadily over recent weeks. Review of Systems Constitutional: denies: Fever, Chills, Sweats Cardiac: reports: Reviewed and negative Respiratory: reports: Reviewed and negative GI: reports: Abdominal Pain, Nausea, Vomiting. denies: Abdominal Swelling, Constipation, Diarrhea, Hematemesis, Bloody / black stool : denies: Unable to Void, Incontinent Musculoskeletal: reports: Back pain Neurologic: denies: Focal weakness, Numbness PD PAST MEDICAL HISTORY - Past Medical History Past Medical History: Yes Cardiovascular: Hypertension, High cholesterol Respiratory: None, COPD Neuro: None, Headaches Endocrine/Autoimmune: None GI: Chronic diarrhea, Other Psych: Depression, Anxiety, Bipolar disorder, ADD/ADHD, Other Musculoskeletal: Chronic back pain - Past Surgical History Past Surgical History: Yes - Present Medications Home Medications: Ambulatory Orders Medication Instructions Recorded Confirmed Losartan Potassium 50 mg PO DAILY 09/14/19 09/09/22 Atorvastatin [Lipitor] 20 mg PO DAILY 04/21/22 09/09/22 Dicyclomine [Bentyl] 10 - 20 mg PO QID PRN #30 cap 04/21/22 09/09/22 Trazodone HCl 100 mg PO DAILY PM 04/21/22 09/09/22 lamoTRIgine [Lamictal] 25 mg PO DAILY 04/21/22 09/09/22 Dicyclomine [Bentyl] 10 mg PO QID PRN #30 cap 09/09/22 Oxycodone HCl [Roxicodone] 5 - 10 mg PO Q6H PRN #14 tablet 09/09/22 Ondansetron Odt [Zofran] 4 mg TL Q6H PRN #10 tablet 09/11/22 oxyCODONE [Roxicodone] 5 - 10 mg PO Q6H PRN #14 tablet 09/11/22 - Allergies Allergies/Adverse Reactions: Allergies Allergy/AdvReac Type Severity Reaction Status Date / Time codeine AdvReac Cramps Verified 09/11/22 19:36 - Social History Does the pt smoke?: Yes Smoking Status: Current every day smoker Does the pt drink ETOH?: Yes Does the pt have substance abuse?: Yes - Immunizations Immunizations are current?: Yes - POLST Patient has POLST: No POLST Status: Full Code PD ED PE NORMAL - Vitals Vital signs reviewed: Yes - General General: Alert and oriented X 3, No acute distress, Well developed/nourished, Other (sleeping when I enter room, awakens to voice) - Cardiac Cardiac: RRR, No murmur - Respiratory Respiratory: No respiratory distress, Clear bilaterally - Abdomen Abdomen: Normal bowel sounds, Soft, Non tender, Non distended - Derm Derm: Normal color, Warm and dry - Neuro Neuro: No motor deficit (5/5 bilateral plantar/dorsiflexion, LTS BLE intact), No sensory deficit Results - Vitals Vitals: Vital Signs - 24 hr 09/11/22 09/11/22 09/11/22 19:31 20:42 21:50 Temperature 36.5 C Heart Rate 93 94 90 Respiratory 14 14 16 Rate Blood Pressure 119/78 122/89 H 130/92 H O2 Saturation 98 94 98 Oxygen O2 Source Room air - Labs Labs: Laboratory Tests 09/11/22 09/11/22 19:52 19:52 WBC 6.2 RBC 3.95 L Hgb 11.8 L Hct 35.7 L MCV 90.4 MCH 29.9 MCHC 33.1 RDW 14.6 Plt Count 540 H MPV 8.3 Neut # (Auto) 4.2 Lymph # (Auto) 1.5 [place] # (Auto) 0.4 Eos # (Auto) 0.1 Baso # (Auto) 0.0 Absolute Nucleated RBC 0.00 Nucleated RBC % 0.0 Sodium 141 Potassium 3.5 Chloride 103 Carbon Dioxide 25 Anion Gap 13.0 BUN 12 Creatinine 0.7 Estimated GFR (MDRD) 117 Glucose 99 Calcium 9.5 Total Bilirubin 5.7 H AST 268 H ALT 375 H Alkaline Phosphatase 386 H Total Protein 7.0 Albumin 3.7 Globulin 3.3 Albumin/Globulin Ratio 1.1 Lipase 34 PD MEDICAL DECISION MAKING - ED course Complexity details: reviewed old records, reviewed results, re-evaluated patient, considered differential, d/w patient ED course: Patient is asleep when I first enter room but he had already received IV dilaudid 1mg and IV lorazepam 1 mg by that time; these medications were ordered by my colleague due to obvious painful distress when patient had first arrived. No concerning findings on CBC nor BMP; on LFTs, the bilirubin has increased (compared to 09/09) from 2.1 to 5.7, although AST and ALT have decreased (AST 626 decreased to 268, ALT 604 decreased to 375), and alkaline phosphatase is mildly elevated from 09/09 (315 to 386 tonight). Normal lipase (34). No significant abdominal tenderness on exam and he is in NAD during my ED care of patient. Results reviewed with patient. He tells me he is not yet aware of results of the liver biopsy nor the MRI of his thoracic spine (performed 08/19/22). I explained to him that he would need to discuss the details of these tests with his doctor on Friday (has appointment scheduled), but I did also tell him that the MRI is moderately suspicious for metastatic disease in one of his vertebrae (T12). 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 Patient's symptoms are adequately controlled at this time with the medications given early in his stay (as noted above). Prior to d/c he notes pain is gradually returning and he is given 10mg oxycodone PO prior to d/c and I electronically submitted a prescription for 5mg oxycodone 1-2 tabs PO q6 hours PRN pain #14 to his pharmacy of choice (as well as rx for zofran) Departure - Departure Disposition: 01 Home, Self Care Clinical Impression: Back pain Qualifiers: Back pain location: thoracic back pain Chronicity: unspecified Back pain laterality: midline Qualified Code(s): M54.6 - Pain in thoracic spine Abdominal pain Qualifiers: Abdominal location: generalized Qualified Code(s): R10.84 - Generalized abdominal pain Condition: Good Instructions: ED Neck Back Pain General, ED Abdominal Pain Unkn Cause Male Follow-Up: Deja Brower ARNP [Primary Care Provider] - Prescriptions: oxyCODONE [Roxicodone] 5 - 10 mg PO Q6H PRN #14 tablet PRN Reason: Pain Ondansetron Odt [Zofran] 4 mg TL Q6H PRN #10 tablet PRN Reason: Nausea / Vomiting Comments: Prescriptions for oxycodone (pain medication) and ondansetron (anti-nausea medication) have been electronically submitted to [facility] pharmacy in [place]. As we discussed, the findings on your recent MRI of your back are suspicious for possible metastasis (spread of cancer from another area of the body). The liver biopsy is consistent with metastasis as well (again, not a primary cancer but likely a cancer elsewhere that has spread to the liver). When you meet with your doctor in two days, they will review the results with you and discuss recommendations going forward regarding diagnostics, treatment, and consult (such as with an oncologist). I am prescribing a short course of narcotic pain medication for you. These are potentially dangerous and addictive medications that should be used carefully. These medications may constipate you. Take an ppko-wcr-yacdogk stool softener (docusate) twice daily with plenty of water while taking these medications. If you go 24 hours without a bowel movement, take koza-lzx-eextptn miralax, per package instructions. Do not drink or drive while taking these medications. If you received narcotic or sedating medications while in the emergency department, do not drive for 24 hours. Store this medication in a safe, secure place and out of reach of children. It is a violation of federal law to give or sell this medication to another person or to use in a manner other than prescribed. The ED will not refill narcotic prescriptions, including prescriptions lost or stolen. To dispose of unwanted medications: 1. [facility] at [address] in [place] has a medication drop box. They accept prescription medications (in pill form) Friday through Friday 9:00 a.m. to 5:00 p.m. 2. The [facility] accepts prescription medications (in pill form only) for disposal year round. Call for more information. 3. Contact the [facility] for the next [facility] sponsored prescription drug collection event. , [phone], or [phone]; Discharge Date/Time: 09/11/22 23:15
== END 2022-09-11 23:15 | disposition home or self-care (01) ==
LOC: EDUNIT# → ED 19:28
DX: M54.6 Pain in thoracic spine (principal); R10.84 Generalized abdominal pain; I10 Essential (primary) hypertension; F17.200 Nicotine dependence, unspecified, uncomplicated
CPT/HCPCS: 36415; 80053; 83690; 85025; 96374; 96375; 99283; 99284; A9270; J1170; J2060

== ENCOUNTER 2022-09-20 12:04 | Emergency (ER) | payer MEDICAID ==
[2022-09-20 12:36] VITALS: BP 123/90
--- NOTE | 2022-09-20 12:41 | ED Physician Documentation ---
PD HPI ABD PAIN - Stated complaint Stated Complaint: FROM [facility] - Chief complaint Chief Complaint: Abd Pain - History obtained from History obtained from: Patient, Family - Additional information Additional information: The pt comes to the ED after being sent from the 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 His bili was nearly 6 last week, and was not rechecked today, but jaundice looked worse at [facility], so oncologist sent the pt here, stating that "we could just transfer for stent diony cement." Pt denies new complaints. He was at the [facility] to get a saline infusion. Review of Systems Ten Systems: 10 systems reviewed and negative Constitutional: reports: Reviewed and negative Eyes: reports: Reviewed and negative Ears: reports: Reviewed and negative Nose: reports: Reviewed and negative Throat: reports: Reviewed and negative Cardiac: reports: Reviewed and negative Respiratory: reports: Reviewed and negative GI: reports: Reviewed and negative : reports: Reviewed and negative Skin: reports: Other (jaundice) Musculoskeletal: reports: Reviewed and negative Neurologic: reports: Reviewed and negative Psychiatric: reports: Reviewed and negative Endocrine: reports: Reviewed and negative Immunocompromised: reports: Reviewed and negative PD PAST MEDICAL HISTORY - Past Medical History Cardiovascular: Hypertension, High cholesterol Respiratory: None, COPD Neuro: None, Headaches Endocrine/Autoimmune: None GI: Chronic diarrhea, Other Psych: Depression, Anxiety, Bipolar disorder, ADD/ADHD, Other Musculoskeletal: Chronic back pain - Past Surgical History Past Surgical History: Yes - Present Medications Home Medications: Ambulatory Orders Medication Instructions Recorded Confirmed Losartan Potassium 50 mg PO DAILY 09/14/19 09/09/22 Atorvastatin [Lipitor] 20 mg PO DAILY 04/21/22 09/09/22 Dicyclomine [Bentyl] 10 - 20 mg PO QID PRN #30 cap 04/21/22 09/09/22 Trazodone HCl 100 mg PO DAILY PM 04/21/22 09/09/22 lamoTRIgine [Lamictal] 25 mg PO DAILY 04/21/22 09/09/22 Dicyclomine [Bentyl] 10 mg PO QID PRN #30 cap 09/09/22 Oxycodone HCl [Roxicodone] 5 - 10 mg PO Q6H PRN #14 tablet 09/09/22 Ondansetron Odt [Zofran] 4 mg TL Q6H PRN #10 tablet 09/11/22 oxyCODONE [Roxicodone] 5 - 10 mg PO Q6H PRN #14 tablet 09/11/22 oxyCODONE [Roxicodone] 5 mg PO Q4-6H PRN #12 tablet 09/20/22 - Allergies Allergies/Adverse Reactions: Allergies Allergy/AdvReac Type Severity Reaction Status Date / Time codeine AdvReac Cramps Verified 09/20/22 12:36 - Social History Does the pt smoke?: Yes Smoking Status: Current every day smoker Does the pt drink ETOH?: Yes Does the pt have substance abuse?: Yes - Immunizations Immunizations are current?: Yes - POLST Patient has POLST: No POLST Status: Full Code PD ED PE NORMAL - Vitals Vital signs reviewed: Yes - General General: Alert and oriented X 3, No acute distress, Well developed/nourished, Other (The pt appears very jaundiced and in likely poor health at baseline, but is energetic and talkative.) - HEENT HEENT: Atraumatic, PERRL, EOMI, Moist mucous membranes, Other (icteric) - Neck Neck: Supple, no meningeal sign - Respiratory Respiratory: No respiratory distress - Abdomen Abdomen: Other (distended abdomen) - Derm Derm: Warm and dry, Other (Marked jaundice) - Extremities Extremities: No deformity - Neuro Neuro: Alert and oriented X 3 - Psych Psych: Normal mood, Normal affect Results - Vitals Vitals: Oxygen O2 Source Room air PD MEDICAL DECISION MAKING - ED course Complexity details: considered differential, d/w patient, d/w family, d/w mental hygiene consultant ED course: I had a lengthy discussion with the pt's oncologist, prior to the pt's arrival, and stated to him that we cannot "just arrange transfer" these days, as every larger hospital in [facility] is at critical capacity, and often will not even speak to us about potential transfers. The last 2 biliary obstruction patients (within the past 2 weeks) who have been here have sat in the ED for days, wait-listed at larger hospitals, and finally been discharged home. I have advised the oncologist that the best plan is to have the pt go directly to the ED of a hospital that can do what he needs, since this situation has been in progress for days, and he is stable. Oncologist [place] so he would be coming here anyway. He stated he would try to pull some strings with [facility], although the pt prefers . I did not hear anything further from the oncologist or [place]. I explained all of the above to the pt, who stated he would really rather go home, and that he has a couple of ride options for this evening, but just not right at this very moment. I think this is reasonable, and far more likely to result in the pt getting care in a timely manner than if he stays here and we try to transfer. Departure - Departure Disposition: Home, Self Care Clinical Impression: Jaundice Metastatic cancer Qualifiers: Area of secondary neoplastic involvement: other site Qualified Code(s): C79.89 - Secondary malignant neoplasm of other specified sites Condition: Stable Instructions: Cancer Intraperitoneal Therapy Prescriptions: oxyCODONE [Roxicodone] 5 mg PO Q4-6H PRN #12 tablet PRN Reason: Pain Comments: We have offered you care here, but with the explanation that any attempts to transfer, based on recent conditions at all [facility], will likely take an extended period of time, up to several days. It turns out that you do have some transportation to [place] later today and you have opted to go home and avail yourself of this to go to the hospital that can provide the services that you need. I think this is probably the best plan, though we are always willing to take care of you here in our emergency department if needed. A prescription for your oxycodone has been electronically transmitted to [facility] pharmacy in [place]. Please pick this up at your convenience. Discharge Date/Time: 09/20/22 12:45
== END 2022-09-20 12:45 | disposition home or self-care (01) ==
LOC: ED 12:04
DX: R17 Unspecified jaundice (principal); C80.1 Malignant (primary) neoplasm, unspecified; F17.200 Nicotine dependence, unspecified, uncomplicated; C78.7 Secondary malignant neoplasm of liver and intrahepatic bile duct
CPT/HCPCS: 80053; 83690; 85025; 99283; 99284

== ENCOUNTER 2022-09-26 05:11 | Emergency (ER) | payer MEDICAID ==
--- NOTE | 2022-09-26 05:27 | ED Physician Documentation ---
PD HPI ABD PAIN - Stated complaint Stated Complaint: ABD PX - Chief complaint Chief Complaint: Abd Pain - History obtained from History obtained from: Patient, EMS - History of Present Illness Timing - onset: How many weeks ago (gradually worsening over past few weeks) Timing - details: Gradual onset, Constant Pain level now: 10 Quality: Pain Location: RUQ, Epigastric, Periumbilical Radiation: Lower back, Right flank Worsened by: Palpation Associated symptoms: No: Fever, Nausea, Vomiting, Diarrhea, Constipation Recently seen: Surgery - Additional information Additional information: diagnosed earlier this month with large, necrotic liver mass (on MRI) with biopsy result consistent with adenocarcinoma; the mass is thought to be a metastasis although primary malignancy is unknown. Patient says he had liver stents (per patient) placed a few days ago at [facility]. He presents at this time due to recurrence of abdominal pain which he had prior to this diagnosis. He says he has an appointment with his primary care provider already scheduled for later this morning to discuss pain control, but the pain became too severe tonight to tolerate waiting until then. He says he only is here for pain control , as his symptoms are not new Review of Systems Constitutional: denies: Fever Cardiac: reports: Reviewed and negative Respiratory: reports: Reviewed and negative GI: reports: Abdominal Pain. denies: Vomiting, Constipation, Diarrhea PD PAST MEDICAL HISTORY - Past Medical History Cardiovascular: Hypertension, High cholesterol Respiratory: None, COPD Neuro: None, Headaches Endocrine/Autoimmune: None GI: Chronic diarrhea, Other Psych: Depression, Anxiety, Bipolar disorder, ADD/ADHD, Other Musculoskeletal: Chronic back pain - Past Surgical History Past Surgical History: Yes - Present Medications Home Medications: Ambulatory Orders Medication Instructions Recorded Confirmed Losartan Potassium 50 mg PO DAILY 09/14/19 09/09/22 Atorvastatin [Lipitor] 20 mg PO DAILY 04/21/22 09/09/22 Dicyclomine [Bentyl] 10 - 20 mg PO QID PRN #30 cap 04/21/22 09/09/22 Trazodone HCl 100 mg PO DAILY PM 04/21/22 09/09/22 lamoTRIgine [Lamictal] 25 mg PO DAILY 04/21/22 09/09/22 Dicyclomine [Bentyl] 10 mg PO QID PRN #30 cap 09/09/22 Oxycodone HCl [Roxicodone] 5 - 10 mg PO Q6H PRN #14 tablet 09/09/22 Ondansetron Odt [Zofran] 4 mg TL Q6H PRN #10 tablet 09/11/22 oxyCODONE [Roxicodone] 5 - 10 mg PO Q6H PRN #14 tablet 09/11/22 oxyCODONE [Roxicodone] 5 mg PO Q4-6H PRN #12 tablet 09/20/22 - Allergies Allergies/Adverse Reactions: Allergies Allergy/AdvReac Type Severity Reaction Status Date / Time codeine AdvReac Mild Cramps Verified 09/26/22 05:19 - Social History Does the pt smoke?: Yes Smoking Status: Current every day smoker Does the pt drink ETOH?: Yes Does the pt have substance abuse?: Yes - Immunizations Immunizations are current?: Yes - POLST Patient has POLST: No POLST Status: Full Code PD ED PE NORMAL - Vitals Vital signs reviewed: Yes - General General: Alert and oriented X 3, Well developed/nourished, Other (appears to be in moderate painful distress) - HEENT HEENT: Moist mucous membranes, Other (mild icterus) - Cardiac Cardiac: RRR - Respiratory Respiratory: No respiratory distress, Clear bilaterally - Abdomen Abdomen: Soft, Non distended, Other (TTP RUQ without rebound or guarding) Results - Vitals Vitals: Oxygen O2 Source Room air - Labs Labs: Laboratory Tests 09/26/22 09/26/22 05:34 05:34 WBC 7.8 RBC 3.51 L Hgb 10.6 L Hct 34.2 L MCV 97.4 H MCH 30.2 MCHC 31.0 L RDW 16.3 H Plt Count 587 H MPV 8.9 Neut # (Auto) 5.4 Lymph # (Auto) 1.4 L Yancey # (Auto) 0.6 Eos # (Auto) 0.3 Baso # (Auto) 0.1 Absolute Nucleated RBC 0.00 Nucleated RBC % 0.0 Sodium 133 L Potassium 3.1 L Chloride 99 L Carbon Dioxide 20 L Anion Gap 14.0 H BUN 12 Creatinine 0.6 Estimated GFR (MDRD) 140 Glucose 87 Calcium 9.1 Total Bilirubin 5.9 H AST 42 ALT 101 H Alkaline Phosphatase 494 H Total Protein 6.8 Albumin 3.2 Globulin 3.6 Albumin/Globulin Ratio 0.9 L Lipase 63 H PD MEDICAL DECISION MAKING - ED course Complexity details: reviewed old records, re-evaluated patient, considered differential, d/w patient ED course: Patient is specifically asking for pain control only, as his symptoms are not new and he has run out of pain medication but has appointment later this morning with his primary care provider. He is given 2mg IM dilaudid and on reevaluation he is resting comfortably in NAD and reports good symptom relief . He is comfortable with d/c home and will see his primary care provider later this morning as scheduled Departure - Departure Disposition: 01 Home, Self Care Clinical Impression: Abdominal pain Qualifiers: Abdominal location: generalized Qualified Code(s): R10.84 - Generalized abdominal pain Condition: Good Instructions: Abdominal Pain Comments: Your blood tests have not significant changed since the last results on my records (September 11, 2022). Follow up with your primary care provider today as scheduled Discharge Date/Time: 09/26/22 07:25
[2022-09-26 05:47] LABS: BASOPHILS # (AUTO) 0.1 10^3/uL (0.0-0.1); EOSINOPHILS # (AUTO) 0.3 10^3/uL (0.0-0.7); EOSINOPHILS % (AUTO) 3.3 %; HCT - HEMATOCRIT 34.2 % (42.0-52.0); HGB - HEMOGLOBIN 10.6 g/dL (14.0-18.0); LYMPHOCYTES # (AUTO) 1.4 10^3/uL (1.5-3.5); LYMPHOCYTES % (AUTO) 18.2 %; MEAN CORPUSCULAR HEMOGLOBIN 30.2 pg (27.0-31.0); MEAN CORPUSCULAR VOLUME 97.4 fL (80.0-94.0); MEAN PLATELET VOLUME 8.9 fL (7.4-11.4); MONOCYTES # (AUTO) 0.6 10^3/uL (0.0-1.0); MONOCYTES % (AUTO) 7.8 %; NEUTROPHILS # (AUTO) 5.4 10^3/uL (1.5-6.6); NEUTROPHILS % (AUTO) 69.4 %; PLT - PLATELET COUNT 587 10^3/uL (130-450); RED BLOOD COUNT 3.51 10^6/uL (4.70-6.10); RED CELL DISTRIBUTION WIDTH 16.3 % (12.0-15.0); WHITE BLOOD COUNT 7.8 x10^3/uL (4.8-10.8)
[2022-09-26] MEDS ORDERED: HYDROmorphone 2 MG/ML VIAL IM STA (05:48)
[2022-09-26 05:58] LABS: ALBUMIN 3.2 g/dL (3.2-5.5); ALBUMIN/GLOBULIN RATIO 0.9 (1.0-2.2); BILIRUBIN,TOTAL 5.9 mg/dL (0.2-1.0); CALCIUM 9.1 mg/dL (8.5-10.3); CREATININE 0.6 mg/dL (0.6-1.2); POTASSIUM 3.1 mmol/L (3.5-5.0); TOTAL PROTEIN 6.8 g/dL (6.7-8.2)
[2022-09-26 07:19] VITALS: BP 130/87
== END 2022-09-26 07:25 | disposition home or self-care (01) ==
LOC: EDUNIT# → ED 05:11
DX: R10.84 Generalized abdominal pain (principal); F17.200 Nicotine dependence, unspecified, uncomplicated
CPT/HCPCS: 36415; 80053; 83690; 85025; 96372; 99283; 99284; J1170

== ENCOUNTER → 2022-09-26 | Outpatient (CLI) | payer MEDICAID | END | disposition critical access hospital (66) | LOC: EMS 04:55 | DX: G89.3 Neoplasm related pain (acute) (chronic) (principal) | CPT/HCPCS: A0425; A0429; A0999 ==

== ENCOUNTER 2022-11-17 13:54 | Outpatient (CLI) | payer MEDICAID | END 2022-11-17 13:55 | disposition E | LOC: EMS 13:54 | DX: I46.9 Cardiac arrest, cause unspecified (principal) ==